=== PATIENT | male | born 1950 | race Caucasian/White ===

== ENCOUNTER 2016-10-29 14:09 | Emergency (ER) | payer BC ==
[~2016-10-29] VITALS: Ht 175.3 cm; Wt 108.0 kg
[~2016-10-29 14:09] MED LIST: ALFU10TA30 PO; ASPI81TA28 PO; DUTA1CAP3; LISI10TA PO; METO50TA7 PO; OMEG10007 PO; PRLSR20 PO; TRAM-10 PO; ZCR80 PO; eloquis
[2016-10-29 14:12] VITALS: TEMP 36.8; Ht 175.3 cm; Wt 108.0 kg
--- NOTE | 2016-10-29 14:38 | EMERGENCY ROOM VISIT NOTE ---
History First contact with patient: 14:21 Chief Complaint: OTHER COMPLAINT Stated Complaint: HOT FLASH History of Present Illness The patient is a 66 year old male who presents to the Emergency Room via private vehicle accompanied by with complaints of "hot flash". The patient states that this past Wednesday he was relaxing and noticed a deep burning -like sensation between his scapula that radiated up his back into his neck and face. This was bilateral. He had 5 or 6 of these episodes on Wednesday, each of which lasted between 30-45 minutes. He took his blood pressure during these events and it was elevated at 165 or 100. Once event subsided the blood pressure was repeated and was found to be 138/70. Yesterday, Wednesday, he did not experience any episodes. This morning he states that the episodes returned were not as severe but are more frequent. He went to his family doctor today for further evaluation performed an EKG and sent him here for an abnormal EKG as well as further workup of his symptoms. He denies any chest pain, shortness of breath, fevers, chills, speech troubles, weakness. He also had dizziness which he thought was her go which was also transient. During this episode he became nauseated. He does have a significant heart history with a triple bypass completed 10 years ago. The gallbladder and appendix are surgically absent. Review of Systems A complete 10-point Review of Systems was discussed with the patient, with pertinent positives and negatives listed in the History of Present Illness. All remaining Review of Systems questions can be considered negative unless otherwise specified. Past Medical/Surgical History Cardiovascular heart disease, high blood pressure, blood clots and right lower leg, triple bypass in 2006, cholecystectomy, appendectomy. Family History Heart disease, high blood pressure, cancer. Social History Smoking Status: Former Smoker Current/Historical Medications Scheduled Alfuzosin Hcl (Uroxatral), 10 MG PO HS Apixaban (Eliquis), 5 MG PO BID Aspirin (Aspirin Ec), 325 MG PO DAILY Dutasteride (Dutasteride), DAILY Fish Oil ([place]-3), 1 CAP PO BID Lisinopril (Prinivil), 10 MG PO DAILY Metoprolol Succ (Toprol Xl) (Toprol-Xl), 50 MG PO QAM Omeprazole (Prilosec), 20 MG PO DAILY Simvastatin (Simvastatin), 80 MG PO HS Scheduled PRN Tramadol (Ultram), 50 MG PO Q4H PRN for Pain Allergies Coded Allergies: Penicillins (Verified Allergy, Unknown, MD CASTLE WANTS MEFOXIN 12/20/04, ) Physical Exam Vital Signs Date Time Temp Pulse Resp B/P Pulse Ox O2 Delivery O2 Flow Rate FiO2 10/29/16 20:51 59 20 149/89 97 10/29/16 19:53 59 20 149/89 97 Room Air 10/29/16 18:32 62 20 179/107 98 Room Air 10/29/16 16:12 62 16 171/92 98 Room Air 10/29/16 14:59 69 10/29/16 14:12 36.8 69 20 165/93 97 Room Air Physical Exam VITAL SIGNS - Vital signs and nursing notes were reviewed. Patient is afebrile , hypertensive at 165/93, not tachycardic and is saturating well on room air 97% . GENERAL -66-year-old male appearing his stated age who is in no acute distress. Communicates well with provider and answers questions appropriately. SKIN - Without rashes. Slight erythema of the neck bilaterally radiating to the face. HEAD - NC/AT. No signs of trauma. EYES - PERRL with EOMI bilaterally. Sclera anicteric. Palpebral conjunctiva pink and moist with no injection noted. EARS - No deformities of external structures noted on gross examination bilaterally. No pain elicited with palpation of the tragus bilaterally. External auditory canals without discharge or otorrhea. Tympanic membranes pearly sexton without retraction or bulging. No fluid or purulent material visualized behind the TM. Handle of malleus, umbo, cone of light, pars tensa/ flaccid all easily visualized. No hemotympanum. NOSE - Midline and without cyanosis. No epistaxis or purulent drainage noted. Septum midline without deviation or septal hematoma noted. MOUTH/OROPHARYNX - Without perioral cyanosis. Buccal mucosa pink and moist and without leukoplakia. Tongue midline with equal elevation of palate bilaterally. No tonsillar hypertrophy, erythema, or exudates noted. Good dentition noted. The airway is patent. NECK - Neck with FROM. Supple to palpation. No lymphadenopathy noted. No nuchal rigidity. No meningeal signs. LUNGS - Chest wall symmetric without accessory muscle use, intercostals retractions, or central cyanosis. Normal vesicular breath sounds CTA B/L. No wheezes, rales, or rhonchi appreciated. CARDIAC - RRR with S1/S2. No murmur, rubs, or gallops appreciated. ABDOMEN - Abdominal contour without pulsations or visible masses. BS normoactive all four quadrants. No tenderness, palpable masses, hepatosplenomegaly, or ascites noted. No pulsatile abdominal masses. MUSCULOSKELETAL: there is no reproducible tenderness upon palpation of the entire spine or scapular regions. EXTREMITIES - No clubbing or peripheral cyanosis. No pretibial edema present. +5 /5 strength noted in UE/LE bilaterally. No neurologic deficit upon exam. NEUROLOGIC - Cranial nerves II through XII grossly intact. Sensory intact to light touch throughout. PSYCH - A&Ox3 and cooperates fully with examiner. Pt is very pleasant and interacts well with examiner. Medical Decision & Procedures ER Provider Diagnostic Interpretation: CT ANGIOGRAM OF THE CHEST CLINICAL HISTORY: Atypical chest pain. COMPARISON STUDY: Chest x-ray dated 10/29/16. Chest CT dated 01/26/2011. TECHNIQUE: Following the IV administration of 91 cc of Optiray 320, CT angiogram of the chest was performed from the upper abdomen to the thoracic inlet utilizing the pulmonary embolus protocol. Images are reviewed in the axial, sagittal, and coronal planes. 3-D MIPS images are created and assessed. IV contrast was administered without complication. CT DOSE: 620.22 mGy.cm FINDINGS: Thyroid: Imaged portions of the thyroid gland are normal in size and attenuation. Thoracic aorta: There is mild atherosclerotic calcification of the thoracic aorta, which is normal in caliber and demonstrates standard 3-vessel arch anatomy. No dissection is seen. Pulmonary vasculature: The pulmonary trunk is normal in caliber. There are thin linear filling defects identified in the distal left main pulmonary artery extending into the left lower lobe branches. Scattered thin central linear filling defects are identified within left upper lobe branches. The right main, lobar, and proximal segmental pulmonary branches are clear. Heart: The patient is status post midline sternotomy. The heart is enlarged and without pericardial effusion. The coronary arteries are densely calcified. Lungs and pleural spaces: Evaluation of the lung parenchyma is modestly degraded by expiratory motion artifact. There is no airspace consolidation or pleural effusion. The trachea and central airways are clear. Mediastinum: There is no mediastinal lymphadenopathy. Jaky: Clear. Axillae: There is no axillary lymphadenopathy. Upper abdomen: Cholecystectomy clips are noted. A 3.2 cm cyst is noted in the upper pole of the right kidney. The liver is steatotic. A small hiatal hernia is identified. Skeletal structures: The skeletal structures are osteopenic. Degenerative change is noted throughout the thoracic spine. No lytic or blastic bony lesions are seen. There is a mild and age indeterminant superior endplate compression deformity of T2. IMPRESSION: 1. There are thin linear central filling defects identified within the distal left main pulmonary artery which extend into the left lower lobe branches. Additionally, thin central linear filling defects are identified within subsegmental branches in the left upper lobe. These are consistent with age indeterminant and possibly chronic pulmonary emboli. 2. No right-sided pulmonary emboli are identified. 3. There is no airspace consolidation or pleural effusion. 4. Cardiomegaly. 5. Hiatal hernia. 6. Additional changes as above. Electronically signed by: Joel Britt M.D. 10/29/2016 5:24 PM Dictated Date/Time: 10/29/2016 5:15 PM CHEST ONE VIEW PORTABLE CLINICAL HISTORY: Pain between scapula. Cardiac history. COMPARISON STUDY: Chest radiograph and chest CT January 26, 2011 FINDINGS: There are median sternotomy wires and clips from bypass grafting. No pneumothorax or pleural effusion is present. There is no evidence of pulmonary edema. No consolidation is identified. Mild cardiomegaly is unchanged. The appearance of the chest is unchanged. IMPRESSION: No acute findings. Stable mild cardiomegaly. No change in appearance of the chest. Electronically signed by: Tayo Granados M.D. 10/29/2016 3:36 PM Dictated Date/Time: 10/29/2016 3:[address]AST CT DOSE: 638.56 mGycm HISTORY: Mental status change "hot flashes", episodes of mid back pain radiating to head TECHNIQUE: Multiaxial CT images of the head were performed without the use of intravenous contrast. Comparison: None. Findings: The paranasal sinuses and mastoid air cells are clear. The calvarium and skull base are intact. The ventricles and sulci are within normal limits. There is no mass, hematoma, midline shift, or acute infarct. Impression: No acute intracranial abnormality. Electronically signed by: Vincent Bar M.D. 10/29/2016 3:57 PM Dictated Date/Time: 10/29/2016 3:57 PM Laboratory Results 10/29/16 15:00 Red Blood Count 4.82, Mean Corpuscular Volume 87.1, Mean Corpuscular Hemoglobin 32.6, Mean Corpuscular Hemoglobin Concent 37.4, Mean Platelet Volume 10.2, Neutrophils (%) (Auto) 70.0, Lymphocytes (%) (Auto) 22.8, Monocytes (%) (Auto) 6.0, Eosinophils (%) (Auto) 0.8, Basophils (%) (Auto) 0.1, Neutrophils # (Auto) 5.45, Lymphocytes # (Auto) 1.78, Monocytes # (Auto) 0.47, Eosinophils # (Auto) 0.06, Basophils # (Auto) 0.01 10/29/16 15:00 Test 10/29/16 15:00 10/29/16 15:09 10/29/16 16:15 White Blood Count 7.79 K/uL (4.8-10.8) Red Blood Count 4.82 M/uL (4.7-6.1) Hemoglobin 15.7 g/dL (14.0-18.0) Hematocrit 42.0 % (42-52) Mean Corpuscular Volume 87.1 fL (80-100) Mean Corpuscular Hemoglobin 32.6 pg (25-34) Mean Corpuscular Hemoglobin Concent 37.4 g/dl (32-36) Platelet Count 130 K/uL (130-400) Mean Platelet Volume 10.2 fL (7.4-10.4) Neutrophils (%) (Auto) 70.0 % Lymphocytes (%) (Auto) 22.8 % Monocytes (%) (Auto) 6.0 % Eosinophils (%) (Auto) 0.8 % Basophils (%) (Auto) 0.1 % Neutrophils # (Auto) 5.45 K/uL (1.4-6.5) Lymphocytes # (Auto) 1.78 K/uL (1.2-3.4) Monocytes # (Auto) 0.47 K/uL (0.11-0.59) Eosinophils # (Auto) 0.06 K/uL (0-0.5) Basophils # (Auto) 0.01 K/uL (0-0.2) RDW Standard Deviation 37.3 fL (36.4-46.3) RDW Coefficient of Variation 11.6 % (11.5-14.5) Immature Granulocyte % (Auto) 0.3 % Immature Granulocyte # (Auto) 0.02 K/uL (0.00-0.02) Prothrombin Time 10.6 SECONDS (9.0-12.0) Prothromb Time International Ratio 1.0 (0.9-1.1) Activated Partial Thromboplast Time 24.7 SECONDS (21.0-31.0) Partial Thromboplastin Ratio 1.0 Anion Gap 8.0 mmol/L (3-11) Est Creatinine Clear Calc Drug Dose 88.0 ml/min Estimated GFR () 90.5 Estimated GFR (Non- 78.1 BUN/Creatinine Ratio 20.0 (10-20) Calcium Level 8.8 mg/dl (8.5-10.1) Total Bilirubin 0.7 mg/dl (0.2-1) Aspartate Amino Transf (AST/SGOT) 23 U/L (15-37) Alanine Aminotransferase (ALT/SGPT) 44 U/L (12-78) Alkaline Phosphatase 84 U/L (45-117) Total Protein 7.4 gm/dl (6.4-8.2) Albumin 4.1 gm/dl (3.4-5.0) Globulin 3.3 gm/dl (2.5-4.0) Albumin/Globulin Ratio 1.2 (0.9-2) Lipase 97 U/L (73-393) Thyroid Stimulating Hormone (TSH) 3.920 uIu/ml (0.300-4.500) Bedside Troponin I 0.000 ng/ml (0-0.045) Urine Color YELLOW Urine Appearance CLEAR (CLEAR) Urine pH 5.0 (4.5-7.5) Urine Specific [place] 1.025 (1.000-1.030) Urine Protein NEG (NEG) Urine Glucose (UA) NEG (NEG) Urine Ketones TRACE (NEG) Urine Occult Blood NEG (NEG) Urine Nitrite NEG (NEG) Urine Bilirubin NEG (NEG) Urine Urobilinogen NEG (NEG) Urine Leukocyte Esterase NEG (NEG) Medical Decision Patient was seen and evaluated as above. After obtaining a thorough history and physical examination IV access was obtained and the above workup was initiated. He was referred here by Dr. Padmini Dao's office who believe he is experiencing symptoms of a myocardial infarction to include shortness of breath and EKG changes from previous any history of coronary artery bypass. I do believe this is reasonable. There was concern for myocardial infarction, pulmonary embolism and dissection as the patient was recently placed on Eliquis. CBC reveals no leukocytosis or anemia. PT and INR are stable. Electrolytes unremarkable. BUN slightly elevated at 20. Creatinine stable. Liver unremarkable. The point care troponin 0. TSH normal. Urine is unremarkable Other than trace ketones. Head CT unremarkable. Chest x-ray stable. CTA was ordered and revealed questionable pulmonary emboli as well as T2 compression fracture, with likely an old fracture as there is no pinpoint tenderness over this region. Pulmonary emboli may be acute or chronic this is unknown. Also EKG changes compared to previous. EKG reveals ventricularly paced rhythm 60 bpm with right axis deviation, potential ectopic atrial rhythm, QRS shift with potential change in the in the inferior leads. There is no ST segment elevation or depression at this time and with a negative troponin I do not believe he is experiencing an active myocardial infarction. Based upon these findings I do believe that the patient warrants inpatient admission for further evaluation and management of the potential pulmonary embolism, questionable subtherapeutic Eliquis with DVT and EKG changes. Please refer to further hospital documentation regarding the patient's stay. His vital signs have been stable here in the emergency department. I was then called by the admission team who agreed to see the patient and was then told that they would not be admitting him,and felt that his EKG changes were consistent with that of a pulmonary embolism and notes the patient to continue his Eliquis but should double up on his lisinopril for his high blood pressure. The decision was then made to discharge the patient and the patient did feel comfortable with this. He is to call his family doctor first thing tomorrow morning to schedule follow-up regarding today's visit. Repeat EKG revealed sinus bradycardia no ectopy or ischemic change. 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 In a repeat EKG was then obtained and revealed sinus bradycardia evaluation treatment this patient following differential diagnoses were entertained: ID, PE , dissection, intracranial mass, hemorrhage, GERD, pneumonia, pneumothorax, hemothorax, pericarditis, among others. Impression Primary Impression: Pulmonary embolism Additional Impressions: Non-traumatic compression fracture of T2 thoracic vertebra Acute electrocardiogram changes Departure Information Dispostion Home / Self-Care Condition FAIR Referrals Joaquín Dao M.D. (PCP) Patient Instructions [facility] Additional Instructions You were seen in the emergency department for your symptoms. In regard to the sensation of burning going up your back: - follow up with his PCP within 2-4 weeks time for this. Blood Pressure Elevation: increase daily lisinopril to 20 mg. take 1 whole tablet daily. - Continue on metoprolol succinate 50 mg QAM, asa 81 mg daily continue Eliquis 5 mg BID. No driving more than 1.5 hours without getting up to walk, strenous activities, contact sports. - Encouraged the patient to walk as much as tolerable - If you develop any chest pain, acute shortness of breath, pain with deep breaths, shortness of breath on exertion, or have other concerns with your health call 911, or come to the emergency department. Low Back Pain: - Continue tramadol 100 mg TID as needed for pain. - Follow up with PCP regarding decision to start gabapentin. Please call your family doctor tomorrow to schedule follow-up. Please return to the emergency department with any new/concerning symptoms. Problem Qualifiers
[2016-10-29] MEDS ORDERED: APIX1TAB3 PO (15:14)
[2016-10-29] MEDS ORDERED: ASPI325T39 PO (15:14)
[2016-10-29 15:24] LABS: BASO % 0.1 %; BASO ABS # 0.01 K/uL (0-0.2); COMPLETE YES; EOS % 0.8 %; IG% 0.3 %; LYMPH % 22.8 %; LYMPH ABS # 1.78 K/uL (1.2-3.4); MEAN CELL VOLUME 87.1 fL (80-100); MEAN CORPUSCULAR HEMOGLOBIN 32.6 pg (25-34); MEAN CORPUSCULAR HGB CONC 37.4 g/dl (32-36); MEAN PLATELET VOLUME 10.2 fL (7.4-10.4); PLATELET COUNT 130 K/uL (130-400); RED BLOOD COUNT 4.82 M/uL (4.7-6.1); WHITE BLOOD COUNT 7.79 K/uL (4.8-10.8)
[2016-10-29 15:34] LABS: PROTHROMBIN TIME (PATIENT) 10.6 SECONDS (9.0-12.0)
--- NOTE | 2016-10-29 15:38 | DIAGNOSTIC IMAGING REPORT ---
CHEST ONE VIEW PORTABLE CLINICAL HISTORY: Pain between scapula. Cardiac history. COMPARISON STUDY: Chest radiograph and chest CT January 26, 2011 FINDINGS: There are median sternotomy wires and clips from bypass grafting. No pneumothorax or pleural effusion is present. There is no evidence of pulmonary edema. No consolidation is identified. Mild cardiomegaly is unchanged. The appearance of the chest is unchanged. IMPRESSION: No acute findings. Stable mild cardiomegaly. No change in appearance of the chest. Electronically signed by: Tayo Granados M.D. 10/29/2016 3:36 PM Dictated Date/Time: 10/29/2016 3:36 PM
[2016-10-29 15:42] LABS: CALCIUM 8.8 mg/dl (8.5-10.1); POTASSIUM 3.9 mmol/L (3.5-5.1)
[2016-10-29 15:53] LABS: ALB/GLOB RATIO 1.2 (0.9-2); THYROID STIMULATING HORMONE 3.92 uIu/ml (0.300-4.500)
--- NOTE | 2016-10-29 15:59 | DIAGNOSTIC IMAGING REPORT ---
HEAD CT NONCONTRAST CT DOSE: 638.56 mGycm HISTORY: Mental status change "hot flashes", episodes of mid back pain radiating to head TECHNIQUE: Multiaxial CT images of the head were performed without the use of intravenous contrast. Comparison: None. Findings: The paranasal sinuses and mastoid air cells are clear. The calvarium and skull base are intact. The ventricles and sulci are within normal limits. There is no mass, hematoma, midline shift, or acute infarct. Impression: No acute intracranial abnormality. Electronically signed by: Vincent Bar M.D. 10/29/2016 3:57 PM Dictated Date/Time: 10/29/2016 3:57 PM
[2016-10-29 16:32] LABS: URINE APPEARANCE CLEAR (CLEAR); URINE BILIRUBIN NEG (NEG); URINE COLOR YELLOW; URINE NITRITE NEG (NEG); URINE SPECIFIC GRAVITY 1.025 (1.000-1.030); UROBILINOGEN NEG (NEG); ZZUR CULT IF INDIC CLEAN CATCH NO
[2016-10-29 16:33] LABS: MANUAL MICROSCOPIC REQUIRED? NO; REVIEW REQ? NO
[2016-10-29] MEDS ORDERED: OPTIRAY 320 IV PRN (16:45)
--- NOTE | 2016-10-29 17:26 | DIAGNOSTIC IMAGING REPORT ---
CT ANGIOGRAM OF THE CHEST CLINICAL HISTORY: Atypical chest pain. COMPARISON STUDY: Chest x-ray dated 10/29/16. Chest CT dated 01/26/2011. TECHNIQUE: Following the IV administration of 91 cc of Optiray 320, CT angiogram of the chest was performed from the upper abdomen to the thoracic inlet utilizing the pulmonary embolus protocol. Images are reviewed in the axial, sagittal, and coronal planes. 3-D MIPS images are created and assessed. IV contrast was administered without complication. CT DOSE: 620.22 mGy.cm FINDINGS: Thyroid: Imaged portions of the thyroid gland are normal in size and attenuation. Thoracic aorta: There is mild atherosclerotic calcification of the thoracic aorta, which is normal in caliber and demonstrates standard 3-vessel arch anatomy. No dissection is seen. Pulmonary vasculature: The pulmonary trunk is normal in caliber. There are thin linear filling defects identified in the distal left main pulmonary artery extending into the left lower lobe branches. Scattered thin central linear filling defects are identified within left upper lobe branches. The right main, lobar, and proximal segmental pulmonary branches are clear. Heart: The patient is status post midline sternotomy. The heart is enlarged and without pericardial effusion. The coronary arteries are densely calcified. Lungs and pleural spaces: Evaluation of the lung parenchyma is modestly degraded by expiratory motion artifact. There is no airspace consolidation or pleural effusion. The trachea and central airways are clear. Mediastinum: There is no mediastinal lymphadenopathy. Jaky: Clear. Axillae: There is no axillary lymphadenopathy. Upper abdomen: Cholecystectomy clips are noted. A 3.2 cm cyst is noted in the upper pole of the right kidney. The liver is steatotic. A small hiatal hernia is identified. Skeletal structures: The skeletal structures are osteopenic. Degenerative change is noted throughout the thoracic spine. No lytic or blastic bony lesions are seen. There is a mild and age indeterminant superior endplate compression deformity of T2. IMPRESSION: 1. There are thin linear central filling defects identified within the distal left main pulmonary artery which extend into the left lower lobe branches. Additionally, thin central linear filling defects are identified within subsegmental branches in the left upper lobe. These are consistent with age indeterminant and possibly chronic pulmonary emboli. 2. No right-sided pulmonary emboli are identified. 3. There is no airspace consolidation or pleural effusion. 4. Cardiomegaly. 5. Hiatal hernia. 6. Additional changes as above. Electronically signed by: Joel Britt M.D. 10/29/2016 5:24 PM Dictated Date/Time: 10/29/2016 5:15 PM
--- NOTE | 2016-10-29 18:12 | History and Physical ---
History & Physical Date & Time of Service: Oct 29, 2016 at 18:00 Chief Complaint: Hot Flash Primary Care Physician: Joaquín Dao M.D. History of Present Illness Source: patient This is a 66 yo M with PMHx significant for HTN, CAD with previous NM s/p CABG x 3 in 2006, hyperlipidemia, recently diagnosed DVT on elequis, previous PE, BPH , osteoarthritis, spinal stenosis, herniated lumbar disc, chronic lower back pain who presents after an episode hot flash/radiating warm sensation. Pt reports this warm sensation starts between his shoulder blades, radiates to his whole chest, up his neck and over his face with a warm flushed feeling. It lasts a few seconds and then he developes a cold sweat. Pt notes the first time he felt this was last summer, and that he has infrequently had them on and off over the past 6 months. This sensation is nothing like his previous NM where he had "Classic symptoms with chest pain, radiation down arm and up to neck, and shortness of breath". 3 days ago the pt experienced multiple of these sensations together within a 45 minute time frame. Today at ~0545 he had another one of these feelings while driving in the car on snowy roads. He admits to feeling anxious when these symptoms occur normally. He cannot relate anything specific to why he had the sensation 6-7 times 3 days ago. Pt notes his kiko is admitted here for tylenol overdose and has been thinking about this a lot lately which has caused him to be more anxious. In the ED poc troponin is negative. CXR is negative. CTPE shows age indeterminate PE. EKG shows new S1, T3, and Q3 indicative of core pulmonale in relation to previous PE, without signs of acute ischemia. Other labs are essentially unremarkable. Social History Smoking Status: Former Smoker Immunizations History of Influenza Vaccine: No History of Tetanus Vaccine?: Yes Tetanus Immunization Date: Jan 09, 2004 History of Pneumococcal: No History of Hepatitis B Vaccine: No Multi-Drug Resistant Organisms History of MDRO: No Allergies Coded Allergies: Penicillins (Verified Allergy, Unknown, MD CASTLE WANTS MEFOXIN 12/20/04, ) Home Medications Scheduled Alfuzosin Hcl (Uroxatral), 10 MG PO HS Apixaban (Eliquis), 5 MG PO BID Aspirin (Aspirin Ec), 325 MG PO DAILY Dutasteride (Dutasteride), DAILY Fish Oil ([place]-3), 1 CAP PO BID Lisinopril (Prinivil), 10 MG PO DAILY Metoprolol Succ (Toprol Xl) (Toprol-Xl), 50 MG PO QAM Omeprazole (Prilosec), 20 MG PO DAILY Simvastatin (Simvastatin), 80 MG PO HS Scheduled PRN Tramadol (Ultram), 50 MG PO Q4H PRN for Pain Physical Exam Vital Signs Date Time Temp Pulse Resp B/P Pulse Ox O2 Delivery O2 Flow Rate FiO2 10/29/16 16:12 62 16 171/92 98 Room Air 10/29/16 14:59 69 10/29/16 14:12 36.8 69 20 165/93 97 Room Air Diagnostics Laboratory Results Results Past 24 Hours Test 10/29/16 15:00 10/29/16 15:09 10/29/16 16:15 Range/Units White Blood Count 7.79 4.8-10.8 K/uL Red Blood Count 4.82 4.7-6.1 M/uL Hemoglobin 15.7 14.0-18.0 g/dL Hematocrit 42.0 42-52 % Mean Corpuscular Volume 87.1 80-100 fL Mean Corpuscular Hemoglobin 32.6 25-34 pg Mean Corpuscular Hemoglobin Concent 37.4 32-36 g/dl Platelet Count 130 130-400 K/uL Mean Platelet Volume 10.2 7.4-10.4 fL Neutrophils (%) (Auto) 70.0 % Lymphocytes (%) (Auto) 22.8 % Monocytes (%) (Auto) 6.0 % Eosinophils (%) (Auto) 0.8 % Basophils (%) (Auto) 0.1 % Neutrophils # (Auto) 5.45 1.4-6.5 K/uL Lymphocytes # (Auto) 1.78 1.2-3.4 K/uL Monocytes # (Auto) 0.47 0.11-0.59 K/uL Eosinophils # (Auto) 0.06 0-0.5 K/uL Basophils # (Auto) 0.01 0-0.2 K/uL RDW Standard Deviation 37.3 36.4-46.3 fL RDW Coefficient of Variation 11.6 11.5-14.5 % Immature Granulocyte % (Auto) 0.3 % Immature Granulocyte # (Auto) 0.02 0.00-0.02 K/uL Prothrombin Time 10.6 9.0-12.0 SECONDS Prothromb Time International Ratio 1.0 0.9-1.1 Activated Partial Thromboplast Time 24.7 21.0-31.0 SECONDS Partial Thromboplastin Ratio 1.0 Sodium Level 140 136-145 mmol/L Potassium Level 3.9 3.5-5.1 mmol/L Chloride Level 105 98-107 mmol/L Carbon Dioxide Level 27 21-32 mmol/L Anion Gap 8.0 3-11 mmol/L Blood Urea Nitrogen 20 7-18 mg/dl Creatinine 1.00 0.60-1.40 mg/dl Est Creatinine Clear Calc Drug Dose 88.0 ml/min Estimated GFR () 90.5 Estimated GFR (Non- 78.1 BUN/Creatinine Ratio 20.0 10-20 Random Glucose 107 70-99 mg/dl Calcium Level 8.8 8.5-10.1 mg/dl Total Bilirubin 0.7 0.2-1 mg/dl Aspartate Amino Transf (AST/SGOT) 23 15-37 U/L Alanine Aminotransferase (ALT/SGPT) 44 12-78 U/L Alkaline Phosphatase 84 45-117 U/L Total Protein 7.4 6.4-8.2 gm/dl Albumin 4.1 3.4-5.0 gm/dl Globulin 3.3 2.5-4.0 gm/dl Albumin/Globulin Ratio 1.2 0.9-2 Lipase 97 73-393 U/L Thyroid Stimulating Hormone (TSH) 3.920 0.300-4.500 uIu/ml Bedside Troponin I 0.000 0-0.045 ng/ml Urine Color YELLOW Urine Appearance CLEAR CLEAR Urine pH 5.0 4.5-7.5 Urine Specific [place] 1.025 1.000-1.030 Urine Protein NEG NEG Urine Glucose (UA) NEG NEG Urine Ketones TRACE NEG Urine Occult Blood NEG NEG Urine Nitrite NEG NEG Urine Bilirubin NEG NEG Urine Urobilinogen NEG NEG Urine Leukocyte Esterase NEG NEG Diagnostic Radiology CT ANGIOGRAM OF THE CHEST CLINICAL HISTORY: Atypical chest pain. COMPARISON STUDY: Chest x-ray dated 10/29/16. Chest CT dated 01/26/2011. TECHNIQUE: Following the IV administration of 91 cc of Optiray 320, CT angiogram of the chest was performed from the upper abdomen to the thoracic inlet utilizing the pulmonary embolus protocol. Images are reviewed in the axial, sagittal, and coronal planes. 3-D MIPS images are created and assessed. IV contrast was administered without complication. CT DOSE: 620.22 mGy.cm FINDINGS: Thyroid: Imaged portions of the thyroid gland are normal in size and attenuation. Thoracic aorta: There is mild atherosclerotic calcification of the thoracic aorta, which is normal in caliber and demonstrates standard 3-vessel arch anatomy. No dissection is seen. Pulmonary vasculature: The pulmonary trunk is normal in caliber. There are thin linear filling defects identified in the distal left main pulmonary artery extending into the left lower lobe branches. Scattered thin central linear filling defects are identified within left upper lobe branches. The right main, lobar, and proximal segmental pulmonary branches are clear. Heart: The patient is status post midline sternotomy. The heart is enlarged and without pericardial effusion. The coronary arteries are densely calcified. Lungs and pleural spaces: Evaluation of the lung parenchyma is modestly degraded by expiratory motion artifact. There is no airspace consolidation or pleural effusion. The trachea and central airways are clear. Mediastinum: There is no mediastinal lymphadenopathy. Jaky: Clear. Axillae: There is no axillary lymphadenopathy. Upper abdomen: Cholecystectomy clips are noted. A 3.2 cm cyst is noted in the upper pole of the right kidney. The liver is steatotic. A small hiatal hernia is identified. Skeletal structures: The skeletal structures are osteopenic. Degenerative change is noted throughout the thoracic spine. No lytic or blastic bony lesions are seen. There is a mild and age indeterminant superior endplate compression deformity of T2. IMPRESSION: 1. There are thin linear central filling defects identified within the distal left main pulmonary artery which extend into the left lower lobe branches. Additionally, thin central linear filling defects are identified within subsegmental branches in the left upper lobe. These are consistent with age indeterminant and possibly chronic pulmonary emboli. 2. No right-sided pulmonary emboli are identified. 3. There is no airspace consolidation or pleural effusion. 4. Cardiomegaly. 5. Hiatal hernia. 6. Additional changes as above. Electronically signed by: Joel Britt M.D. 10/29/2016 5:24 PM Dictated Date/Time: 10/29/2016 5:15 PM The status of this report is Signed. CHEST ONE VIEW PORTABLE CLINICAL HISTORY: Pain between scapula. Cardiac history. COMPARISON STUDY: Chest radiograph and chest CT January 26, 2011 FINDINGS: There are median sternotomy wires and clips from bypass grafting. No pneumothorax or pleural effusion is present. There is no evidence of pulmonary edema. No consolidation is identified. Mild cardiomegaly is unchanged. The appearance of the chest is unchanged. IMPRESSION: No acute findings. Stable mild cardiomegaly. No change in appearance of the chest. Electronically signed by: Tayo Granados M.D. 10/29/2016 3:36 PM Dictated Date/Time: 10/29/2016 3:36 PM The status of this report is Signed. HEAD CT NONCONTRAST CT DOSE: 638.56 mGycm HISTORY: Mental status change "hot flashes", episodes of mid back pain radiating to head TECHNIQUE: Multiaxial CT images of the head were performed without the use of intravenous contrast. Comparison: None. Findings: The paranasal sinuses and mastoid air cells are clear. The calvarium and skull base are intact. The ventricles and sulci are within normal limits. There is no mass, hematoma, midline shift, or acute infarct. Impression: No acute intracranial abnormality. Electronically signed by: Vincent Bar M.D. 10/29/2016 3:57 PM Dictated Date/Time: 10/29/2016 3:57 PM The status of this report is Signed. EKG Vent. rate 60 BPM HI interval 182 ms QRS duration 96 ms QT/QTc 422/422 ms P-R-T axes 141 197 95 Impression Assessment and Plan 66 yo M with PMHx significant for HTN, CAD with previous NM s/p CABG x 3 in 2006 , hyperlipidemia, recently diagnosed DVT on elequis, previous PE, BPH, osteoarthritis, spinal stenosis, herniated lumbar disc, chronic lower back pain who presents after an episode hot flash/radiating warm sensation Hot flash/warm sensation, Chest pain r/o - Pain today appears to be related to anxiety vs cardiac in nature - 1st set of troponins is negative. CAD s/p CABG x 3 Previous NM HTN - Blood pressure elevated due to acute stress and anxiety - Will increase daily lisinopril to 20 mg - EKG findings are consistent with old PE, see below - Continue on metoprolol succinate 50 mg QAM, asa 81 mg daily DVT Age indeterminate PE - CT angiogram conducted showing S1 T3 Q3 which would indicate cor pulmonale consistent with previous PE although unknown when this occured. - Pt is already on anticoagulation with Eliquis 5 mg BID, so will continue - Encouraged the patient to walk as much as tolerable- pt has been being mostly sedentary since diagnosed with DVT in early August Osteoarthritis Chronic Low back pain - Continue tramadol 100 mg TID as needed for pain. Follow up with PCP regarding decision to start gabapentin.
--- NOTE | 2016-10-29 19:16 | Medical Consult ---
Consultation Date of Consultation: Oct 29, 2016. Attending Physician: Dr. Gan Reason for Consultation: Chest Pain r/o History of Present Illness This is a 66 yo M with PMHx significant for HTN, CAD with previous [place] s/p CABG x 3 in 2006, hyperlipidemia, recently diagnosed DVT on elequis, previous PE, BPH , osteoarthritis, spinal stenosis, herniated lumbar disc, chronic lower back pain who presents after an episode hot flash/radiating warm sensation. Pt reports this warm sensation starts between his shoulder blades, radiates to his whole chest, up his neck and over his face with a warm flushed feeling. It lasts a few seconds and then he developes a cold sweat. Pt notes the first time he felt this was last summer, and that he has infrequently had them on and off over the past 6 months. This sensation is nothing like his previous OH where he had "Classic symptoms with chest pain, radiation down arm and up to neck, and shortness of breath". 3 days ago the pt experienced multiple of these sensations together within a 45 minute time frame. Today at ~0545 he had another one of these feelings while driving in the car on snowy roads. He admits to feeling anxious when these symptoms occur normally. He cannot relate anything specific to why he had the sensation 6-7 times 3 days ago. Pt notes his niece is admitted here for tylenol overdose and has been thinking about this a lot lately which has caused him to be more anxious. Pt denies chest pain , flutter, palpitations, sob, abd pain, nausea, vomiting, diarrhea, constipation , lightheadedness or dizziness. In the ED poc troponin is negative. CXR is negative. CTPE shows age indeterminate PE. EKG shows new S1, T3, and Q3 indicative of core pulmonale in relation to previous PE, without signs of acute ischemia. Other labs are essentially unremarkable. Past Medical/Surgical History Medical Problems: (1) Acute electrocardiogram changes Status: Acute (2) Non-traumatic compression fracture of T2 thoracic vertebra Status: Acute (3) Pulmonary embolism Status: Acute Social History Smoking Status: Former Smoker Smokeless Tobacco Use: No Alcohol Use: none Drug Use: none Marital Status: Housing Status: lives with family Occupation Status: retired Allergies Coded Allergies: Penicillins (Verified Allergy, Unknown, MD CASTLE WANTS MEFOXIN 12/20/04, ) Home Medications Alfuzosin hcl 10 mg PO HS Eliquis 5 mg BID ASA 81 mg Dutasteride 0.5 mg daily Lisinopril 10 mg daily Toprolol XL 25 mg every morning Omeprazole 20 mg daily simvastatin 80 mg QHS tramadol 100 mg TID Current Inpatient Medications Current Inpatient Medications Medications (Trade) Dose Ordered Sig/Zaid Route Start Time Stop Time Status Last Admin Dose Admin Ioversol (Optiray 320) 125 ml UD PRN IV 10/29/16 16:45 11/02/16 16:44 Review of Systems 10 point ROS reviewed and negative unless otherwise stated in HPI. Physical Exam Date Time Temp Pulse Resp B/P Pulse Ox O2 Delivery O2 Flow Rate FiO2 10/29/16 18:32 62 20 179/107 98 Room Air 10/29/16 16:12 62 16 171/92 98 Room Air 10/29/16 14:59 69 10/29/16 14:12 36.8 69 20 165/93 97 Room Air General Appearance: WD/WN, no apparent distress Head: normocephalic, atraumatic Eyes: PERRL, EOMI ENT: hearing grossly normal, pharynx normal Neck: supple, no JVD Respiratory/Chest: chest non-tender, lungs clear, normal breath sounds, no respiratory distress, no accessory muscle use Cardiovascular: regular rate, rhythm, no murmur, normal peripheral pulses Abdomen/GI: normal bowel sounds, non tender, soft Back: normal inspection, no muscle spasm, + pertinent finding (No point tenderness of the spine. ) Extremities/Musculoskelatal: no calf tenderness, no pedal edema Neurologic/Psych: no motor/sensory deficits, alert, normal mood/affect, oriented x 3 Skin: normal color, warm/dry Laboratory Results Last 24 Hours Test 10/29/16 15:00 10/29/16 15:09 10/29/16 16:15 White Blood Count 7.79 K/uL Red Blood Count 4.82 M/uL Hemoglobin 15.7 g/dL Hematocrit 42.0 % Mean Corpuscular Volume 87.1 fL Mean Corpuscular Hemoglobin 32.6 pg Mean Corpuscular Hemoglobin Concent 37.4 g/dl Platelet Count 130 K/uL Mean Platelet Volume 10.2 fL Neutrophils (%) (Auto) 70.0 % Lymphocytes (%) (Auto) 22.8 % Monocytes (%) (Auto) 6.0 % Eosinophils (%) (Auto) 0.8 % Basophils (%) (Auto) 0.1 % Neutrophils # (Auto) 5.45 K/uL Lymphocytes # (Auto) 1.78 K/uL Monocytes # (Auto) 0.47 K/uL Eosinophils # (Auto) 0.06 K/uL Basophils # (Auto) 0.01 K/uL RDW Standard Deviation 37.3 fL RDW Coefficient of Variation 11.6 % Immature Granulocyte % (Auto) 0.3 % Immature Granulocyte # (Auto) 0.02 K/uL Prothrombin Time 10.6 SECONDS Prothromb Time International Ratio 1.0 Activated Partial Thromboplast Time 24.7 SECONDS Partial Thromboplastin Ratio 1.0 Sodium Level 140 mmol/L Potassium Level 3.9 mmol/L Chloride Level 105 mmol/L Carbon Dioxide Level 27 mmol/L Anion Gap 8.0 mmol/L Blood Urea Nitrogen 20 mg/dl Creatinine 1.00 mg/dl Est Creatinine Clear Calc Drug Dose 88.0 ml/min Estimated GFR () 90.5 Estimated GFR (Non- 78.1 BUN/Creatinine Ratio 20.0 Random Glucose 107 mg/dl Calcium Level 8.8 mg/dl Total Bilirubin 0.7 mg/dl Aspartate Amino Transf (AST/SGOT) 23 U/L Alanine Aminotransferase (ALT/SGPT) 44 U/L Alkaline Phosphatase 84 U/L Total Protein 7.4 gm/dl Albumin 4.1 gm/dl Globulin 3.3 gm/dl Albumin/Globulin Ratio 1.2 Lipase 97 U/L Thyroid Stimulating Hormone (TSH) 3.920 uIu/ml Bedside Troponin I 0.000 ng/ml Urine Color YELLOW Urine Appearance CLEAR Urine pH 5.0 Urine Specific [place] 1.025 Urine Protein NEG Urine Glucose (UA) NEG Urine Ketones TRACE Urine Occult Blood NEG Urine Nitrite NEG Urine Bilirubin NEG Urine Urobilinogen NEG Urine Leukocyte Esterase NEG Assessment & Plan 66 yo M with PMHx significant for HTN, CAD with previous [place] s/p CABG x 3 in 2006 , hyperlipidemia, recently diagnosed DVT on elequis, previous PE, BPH, osteoarthritis, spinal stenosis, herniated lumbar disc, chronic lower back pain who presents after an episode hot flash/radiating warm sensation Hot flash/warm sensation, Chest pain r/o - Pain today appears to be related to anxiety vs cardiac in nature as pt notes episodes occur around periods of high stress. - Troponin is negative. - All other labs are essentially negative. - No findings on PE to suggest cardiac involvement - Recommend that the patient follow up with his PCP within 2-4 weeks time for this. CAD s/p CABG x 3 Previous [place] HTN - Blood pressure elevated due to acute stress and anxiety - Will increase daily lisinopril to 20 mg. Pt has been cutting tablets in half to take 10 mg daily so will have the patient take 1 whole tablet daily. - EKG findings are consistent with old PE, see below - Continue on metoprolol succinate 50 mg QAM, asa 81 mg daily DVT Age indeterminate PE - CT angiogram conducted showing S1 T3 Q3 which would indicate cor pulmonale consistent with previous PE although unknown when this occurred. No CTPE was conducted when the initial DVT was found in early August. Discussion was held with the patient regarding anticoagulation. He is adamant that he does not want to take coumadin so will continue Eliquis 5 mg BID. - Discussion was held regarding not driving more than 1.5 hours without getting up to walk, strenous activities, contact sports. - Encouraged the patient to walk as much as tolerable- pt has been being mostly sedentary since diagnosed with DVT in early August - If pt develops chest pain, acute shortness of breath, pain with deep breaths, shortness of breath on exertion, or had other concerns with his health was instructed to call 911, or come to the emergency department. Osteoarthritis Chronic Low back pain - Continue tramadol 100 mg TID as needed for pain. - Follow up with PCP regarding decision to start gabapentin. Thank you for the consult regarding Mr. Popeye Mijares. Reviewed: Pt Seen/Exam by Me, RN Notes, HO Notes, Prior Records, Labs, RAD History I agree with PA medical consult A 66 yo M with PMHx significant for HTN, CAD with previous [place] s/p CABG x 3 in 2006, hyperlipidemia, recently diagnosed DVT on elequis, previous PE, BPH, osteoarthritis, spinal stenosis, herniated lumbar disc, chronic lower back pain who presents after an episode hot flash/radiating warm sensation Constitutional: denies: chills EENTM: denies: tearing Respiratory: negative: cough Cardiovascular: denies chest pain Genitourinary: negative discharge Musculoskeletal: negative: gout Neurological/Psych: negative: anxiety Hematologic/Lymphatic: negative: anemia General Appearance: WD/WN, no apparent distress Eye Exam: bilateral eye normal inspection Ears, Nose, Throat: hearing grossly normal Neck: non-tender Respiratory: chest non-tender, normal breath sounds Cardiovascular: normal peripheral pulses, no edema Gastrointestinal: non tender Extremities: non-tender Neurologic/Psychiatric: normal mood/affect Assessment/Plan A 66 yo male comes with Hot flash/warm sensation, Chest pain r/o pain is likely related to anxiety vs cardiac in nature as pt notes episodes occur around periods of high stress. Troponin is negative. No findings on exam to suggest cardiac involvement Recommend that the patient follow up with his PCP within 2-4 weeks time for this. CAD s/p CABG x 3 Previous [place] HTN Blood pressure elevated due to acute stress and anxiety increase daily lisinopril to 20 mg. Pt has been cutting tablets in half to take 10 mg daily so will have the patient take 1 whole tablet daily. EKG findings are consistent with old PE, see below Continue on metoprolol succinate 50 mg QAM, asa 81 mg daily Hx DVT with Age indeterminate PE EKG conducted showing S1 T3 Q3 which would indicate cor pulmonale consistent with previous PE although unknown when this occurred. No CTPE was conducted when the initial DVT was found in early August. Discussion was held with the patient regarding anticoagulation. He is adamant that he does not want to take coumadin, so will continue Eliquis 5 mg BID. Discussion was held regarding not flying for 3 months, not driving more than 1.5 hours without getting up to walk, strenuous activities, contact sports. If pt develops chest pain, acute shortness of breath, pain with deep breaths, shortness of breath on exertion, or had other concerns with his health was instructed to call 911, or come to the emergency department. Osteoarthritis Chronic Low back pain Continue tramadol 100 mg TID as needed for pain. Follow up with PCP regarding decision to start gabapentin. Thank you for the consult regarding Mr. Nye Dyllan. time spent 30 min case discussed with ALFONZO Montenegro
[2016-10-29 20:51] VITALS: BP 149/89; PULSE 59; O2SAT 97
== END 2016-10-29 20:53 | disposition home or self-care (01) ==
LOC: C.EDB 14:10
DX: I26.99 Other pulmonary embolism without acute cor pulmonale (principal); M48.54XA Collapsed vertebra, not elsewhere classified, thoracic region, initial encounter for fracture; R94.31 Abnormal electrocardiogram [ECG] [EKG]; Z90.49 Acquired absence of other specified parts of digestive tract; Z87.891 Personal history of nicotine dependence; I25.10 Atherosclerotic heart disease of native coronary artery without angina pectoris; Z79.82 Long term (current) use of aspirin; I25.2 Old myocardial infarction; E78.5 Hyperlipidemia, unspecified; M19.90 Unspecified osteoarthritis, unspecified site; G89.29 Other chronic pain

== ENCOUNTER → 2016-12-29 | Outpatient (CLI) | payer BC ==
[~2016-12-29] MED LIST changes: +ALFU10TA2 PO; -ALFU10TA30 PO; +APIX1TAB3 PO; +ASPI325T39 PO; -ASPI81TA28 PO; -eloquis
[2016-12-29 12:43] LABS: HEMATOCRIT 41.7 % (42-52); MEAN CELL VOLUME 89.7 fL (80-100); MEAN CORPUSCULAR HEMOGLOBIN 32.3 pg (25-34); MEAN PLATELET VOLUME 10.7 fL (7.4-10.4); PLATELET COUNT 144 K/uL (130-400); RED BLOOD COUNT 4.65 M/uL (4.7-6.1); WHITE BLOOD COUNT 6.09 K/uL (4.8-10.8)
[2016-12-29 12:55] LABS: ALT/SGPT 36 U/L (12-78); BLOOD UREA NITROGEN 24 mg/dl (7-18); BUN/CREATININE RATIO 25.2 (10-20); CALCIUM 8.8 mg/dl (8.5-10.1); CARBON DIOXIDE 26 mmol/L (21-32); CHLORIDE 106 mmol/L (98-107); CHOLESTEROL 134 mg/dl (0-200); CREATININE 0.95 mg/dl (0.60-1.40); GLUCOSE 103 mg/dl (70-99); POTASSIUM 3.9 mmol/L (3.5-5.1); SODIUM 140 mmol/L (136-145); TRIGLYCERIDES 121 mg/dl (0-150); VERY LOW DENSITY LIPOPROT CALC 24 mg/dl
[2016-12-29 12:59] LABS: ALB/GLOB RATIO 1.2 (0.9-2); ALKALINE PHOSPHATASE 85 U/L (45-117); AST/SGOT 23 U/L (15-37); CHOLESTEROL/HDL RATIO 4.2; HDL CHOLESTEROL 32 mg/dl; LDL CHOLESTEROL CALCULATED 78 mg/dl
== END | disposition home or self-care (01) ==
LOC: C.LABBFT 08:47
PROVIDERS: ATTEND Physician Assistant Medical
DX: Z12.5 Encounter for screening for malignant neoplasm of prostate (principal); I25.10 Atherosclerotic heart disease of native coronary artery without angina pectoris; E78.5 Hyperlipidemia, unspecified

== ENCOUNTER → 2017-05-07 | Outpatient (CLI) | payer BC ==
[~2017-05-07] MED LIST changes: -ALFU10TA2 PO; +ALFU10TA30 PO
--- NOTE | 2017-05-18 11:07 | CODING QUERY MEDICAL NECESSITY ---
CQSUPPORTING DIAGNOSIS NEEDED A supporting diagnosis is required for the test/procedure performed on this patient in order for us to be reimbursed by the patient's insurance. Please provide a supporting diagnosis for the following test/procedure listed below next to the test name along with your signature. *If there is no additional diagnosis for this patient that would support the following test/procedure please document that below next to the test/procedure. Test(s)/Procedure(s) that require a supporting diagnosis: DOS 05/07/17 [facility] Provider Signature: Date: Thank you Ana Lilia Small [employer] Once completed, please kindly fax back to [phone] For questions please call [phone]
== END | disposition home or self-care (01) ==
LOC: C.LABBFT 08:42
PROVIDERS: ATTEND Internal Medicine
DX: R97.20 Elevated prostate specific antigen [PSA] (principal); I26.99 Other pulmonary embolism without acute cor pulmonale

== ENCOUNTER → 2017-05-20 | Outpatient (CLI) | payer BC ==
--- NOTE | 2017-05-20 12:08 | DIAGNOSTIC IMAGING REPORT ---
CAROTID ARTERY ULTRASOUND CLINICAL HISTORY: Near syncope. Visual changes. COMPARISON STUDY: None. TECHNIQUE: Real-time, grayscale, and color Doppler sonography of the carotid and vertebral arteries was performed. Images were viewed in the transverse and longitudinal planes. FINDINGS: There is mild atherosclerotic plaque. Velocity measurements are listed below. COMMON CAROTID PEAK SYSTOLIC VELOCITY (CM/S): RIGHT 90 LEFT 79 ICA PEAK SYSTOLIC VELOCITY (CM/S): RIGHT 78 LEFT 68 Systolic ratios between the internal to common carotid arteries are normal. Antegrade flow is seen in the vertebral arteries. The external carotid arteries are patent. Blood pressure in the right arm measured 154/79. Blood pressure in the left arm measured 170/85. IMPRESSION: 1. No evidence of a hemodynamically significant stenosis. 2. Elevated blood pressure, as above. Electronically signed by: Tayo Granados M.D. 05/20/2017 12:07 PM Dictated Date/Time: 05/20/2017 12:06 PM
== END | disposition home or self-care (01) ==
LOC: C.ULTR 11:25
PROVIDERS: ATTEND Internal Medicine
DX: R55 Syncope and collapse (principal); H53.9 Unspecified visual disturbance; R03.0 Elevated blood-pressure reading, without diagnosis of hypertension

== ENCOUNTER → 2017-10-08 | Outpatient (CLI) | payer BC ==
[~2017-10-08] MED LIST changes: +ALFU10TA2 PO; -ALFU10TA30 PO
[2017-10-08 12:28] LABS: HEMATOCRIT 44.2 % (42-52); HEMOGLOBIN 15.5 g/dL (14.0-18.0); MEAN CELL VOLUME 92.3 fL (80-100); MEAN CORPUSCULAR HEMOGLOBIN 32.4 pg (25-34); MEAN CORPUSCULAR HGB CONC 35.1 g/dl (32-36); MEAN PLATELET VOLUME 10.7 fL (7.4-10.4); PLATELET COUNT 146 K/uL (130-400); RED CELL DISTRIBUTION WIDTH CV 11.8 % (11.5-14.5)
[2017-10-08 14:18] LABS: ALBUMIN 3.7 gm/dl (3.4-5.0); ALT/SGPT 40 U/L (12-78); AST/SGOT 23 U/L (15-37); BLOOD UREA NITROGEN 21 mg/dl (7-18); CALCIUM 8.7 mg/dl (8.5-10.1); CARBON DIOXIDE 26 mmol/L (21-32); CREATININE 1.04 mg/dl (0.60-1.40); GLUCOSE 104 mg/dl (70-99); POTASSIUM 4.1 mmol/L (3.5-5.1); SODIUM 137 mmol/L (136-145)
[2017-10-08 14:21] LABS: ALKALINE PHOSPHATASE 89 U/L (45-117); CHOLESTEROL 159 mg/dl (0-200); LDL CHOLESTEROL CALCULATED 95 mg/dl; TOTAL PROTEIN 7.3 gm/dl (6.4-8.2)
== END | disposition home or self-care (01) ==
LOC: C.LABBFT 08:27
PROVIDERS: ATTEND Internal Medicine
DX: E78.00 Pure hypercholesterolemia, unspecified (principal); I25.10 Atherosclerotic heart disease of native coronary artery without angina pectoris

== ENCOUNTER → 2018-02-01 | Day surgery (SDC) | payer BC ==
[2018-01-19 12:29] VITALS: Ht 175.3 cm; Wt 109.1 kg
[~2018-02-01] VITALS: Ht 175.3 cm; Wt 109.1 kg
[~2018-02-01] MED LIST changes: -APIX1TAB3 PO; +ATROPINE SULFATE 0.1 MG/ML 5ML SYR IV PRN; +EpHEDrine SULFATE INJ 50 MG/ML AMP IV PRN; +FENTANYL CITRATE INJ 50 MCG/1 ML 2 ML VIAL ONE; +LIDOCAINE HCL 2% 2 ML VIAL (20MG/ML) ONE; -LISI10TA PO; +LSN20 PO; -METO50TA7 PO; +METO50TA8 PO; +MIDAZOLAM HCL 1 MG/ML 2ML VIAL ONE; -OMEG10007 PO; +OMEG5CAP PO; +ONDANSETRON INJ 2 MG/ML 2 ML VIAL ONE; +PROPOFOL IV EMULSION 10 MG/ML 20 ML VIAL ONE; +SODIUM CHLORIDE 0.9% 500ML 500 ML IV ONE
--- NOTE | 2018-02-01 09:45 | Endo History and Physical ---
History & Physical Date of Service: February 01, 2018. Chief Complaint: Screening Referring Physician: Dr. Dao History of Present Illness 68 yo CM who presents for screening colonoscopy. Past Medical History Reflux, High Cholesterol, CABG, Heart Disease, Hypertension Past Surgical History Hx Cardiac Surgery: Yes (HEART CATH-MARIA ESTHER, CABG X 3 97 MARIA ESTHER) Hx Internal Defibrillator: No Hx Pacemaker: No Hx Abdominal Surgery: Yes (APPY, LAP ERNIE) Hx of Implantable Prosthesis: No Hx Post-Op Nausea and Vomiting: No Hx Cancer Surgery: No Hx Thoracic Surgery: No Hx Orthopedic: Yes (BILT KNEE ARTHROSCOPY) Hx Urinary Tract Surgery: No Family History Colon CA Social History Smoking Status: Former Smoker Hx Substance Use: No Hx Alcohol Use: No Allergies Coded Allergies: Penicillins (Verified Allergy, Unknown, MD TIN PATRICK MEFOXIN 12/20/04, ) Current Medications Reported Home Medications Medications Dose Route/Sig Max Daily Dose Days Date Category Lisinopril 20 Mg Tab 1 Tab PO DAILY 01/19/18 Reported Fish Oil 1200 mg ([place]-3 Fatty Acids) 1 Cap Cap 2 Cap PO DAILY 01/19/18 Reported Aspirin Ec (Aspirin) 325 Mg Tab 325 Mg PO DAILY 10/29/16 Reported Dutasteride 0.5 Mg Cap DAILY 09/09/16 Reported Ultram (Tramadol HCl) 50 Mg Tab 100 Mg PO TID 11/28/14 Reported Uroxatral (Alfuzosin HCl) 10 Mg Tab 10 Mg PO HS 11/28/14 Reported Toprol-Xl (Metoprolol Succinate) 50 Mg Tabcr 50 Mg PO QAM 11/28/14 Reported Simvastatin 80 Mg Tab 80 Mg PO HS 11/28/14 Reported Prilosec (Omeprazole) 20 Mg Capcr 20 Mg PO DAILY 04/06/08 Reported Vital Signs Weight (Kilograms): 109.09 Height (Feet): 5 Height (Inches): 9 Physical Exam General Appearance: WD/WN, no apparent distress Respiratory/Chest: Auscultation: breath sounds normal Cardiovascular: Heart Auscultation: RRR Abdomen: Bowel Sounds: normal Inspection & Palpation: soft, non-distended, no tenderness, guarding & rebound Assessment and Plan Assessment: 68 yo CM who presents for screening colonoscopy. Plan: Proceed with colonoscopy.
--- NOTE | 2018-02-01 11:11 | Discharge Instructions ---
Endoscopy Patient Instructions Date / Procedure(s) Performed February 01, 2018. Colonoscopy Allergy Information Coded Allergies: Penicillins (Verified Allergy, Unknown, MD TIN PATRICK MEFOXIN 12/20/04, ) Discharge Date / Findings February 01, 2018. Colon polyps Internal hemorrhoids Medication Instructions Stopped Medication(s): ASPIRIN AND FISH OIL OK to resume all medications today as prescribed Reported Home Medications Medications Dose Route/Sig Max Daily Dose Days Date Category Lisinopril 20 Mg Tab 1 Tab PO DAILY 01/19/18 Reported Fish Oil 1200 mg ([place]-3 Fatty Acids) 1 Cap Cap 2 Cap PO DAILY 01/19/18 Reported Aspirin Ec (Aspirin) 325 Mg Tab 325 Mg PO DAILY 10/29/16 Reported Dutasteride 0.5 Mg Cap DAILY 09/09/16 Reported Ultram (Tramadol HCl) 50 Mg Tab 100 Mg PO TID 11/28/14 Reported Uroxatral (Alfuzosin HCl) 10 Mg Tab 10 Mg PO HS 11/28/14 Reported Toprol-Xl (Metoprolol Succinate) 50 Mg Tabcr 50 Mg PO QAM 11/28/14 Reported Simvastatin 80 Mg Tab 80 Mg PO HS 11/28/14 Reported Prilosec (Omeprazole) 20 Mg Capcr 20 Mg PO DAILY 04/06/08 Reported Provider Instructions Activity Restrictions - No exercising or heavy lifting for 24 hours. - Do not drink alcohol the day of the procedure. - Do not drive a car or operate machinery until the day after the procedure. - Do not make any important decisions or sign important papers in 24 hours after the procedure. Following Day: - Return to full activity which may include returning to work/school. Diet Start your diet with liquids and light foods (jello, soup, juice, toast). Then eat your usual diet if not nauseated. Treatment For Common After Affects For mild abdominal pain, bloating, or excessive gas: - Rest - Eat lightly - Lie on right side Follow-Up Information Follow-up with Dr. Dao as scheduled Anesthesia Information What You Should Know You have had a procedure that required some medicine to reduce anxiety and discomfort. This treatment is called moderate sedation. After receiving the treatment, you may be sleepy, but you will be able to breathe on your own. The effects of the treatment may last for several hours. Follow these instructions along with Activity/Diet recommendations noted above: * Do NOT do anything where dizziness or clumsiness would be dangerous. * Rest quietly at home today, then you can be up and about tomorrow. * Have a responsible person stay with you the rest of today. * You may have had an I.V. today. If so, you may take the dressing off later today. Recommendations Call your doctor if: * Trouble breathing * Continuous vomiting for more than 24 hours * Temperature above 101 degrees * Severe abdominal pain or bloating * Pain not relieved by pain medicine ordered * There is increased drainage or redness from any incision * A large amount of rectal bleeding greater than 2-3 tablespoons. (If you had a polyp/s removed or have hemorrhoids, a small amount of blood - from the rectum is to be expected.) * You have any unanswered questions or concerns. IN THE EVENT OF A SERIOUS EMERGENCY, GO TO THE NEAREST EMERGENCY ROOM Your discharge instructions were prepared by provider Jeet Merchant. Patient Instructions Signature Page Popeye Mijares Patient (or Guardian) Signature/Date: I have read and understand the instructions given to me by my caregivers. Caregiver/RN/Doctor Signature/Date: The above-named patient and/or guardian has received patient instructions on this date. + Original Patient Signature Page (only) stays with chart. Please make copy for patient.
--- NOTE | 2018-02-01 11:27 | GI REPORT ---
Patient Name: Popeye Mijares Procedure Date: 02/01/2018 10:24 AM Date of : 1950 Admit Type: Outpatient Age: 68 Gender: Male Attending MD: Jeet Merchant DO Procedure: Colonoscopy Providers: Jeet Merchant DO Referring MD: Joaquín Dao Indications: Screening for colorectal malignant neoplasm Medicines: Monitored Anesthesia Care Complications: No immediate complications. Estimated Blood Loss: Estimated blood loss: none. Procedure: Pre-Anesthesia Assessment: - Prior to the procedure, a History and Physical was performed, and patient medications and allergies were reviewed. The patient's tolerance of previous anesthesia was also reviewed. The risks and benefits of the procedure and the sedation options and risks were discussed with the patient. All questions were answered, and informed consent was obtained. Prior Anticoagulants: The patient has taken aspirin, last dose was 7 days prior to procedure. ASA Grade Assessment: III - A patient with severe systemic disease. After reviewing the risks and benefits, the patient was deemed in satisfactory condition to undergo the procedure. After I obtained informed consent, the scope was passed under direct vision. Throughout the procedure, the patient's blood pressure, pulse, and oxygen saturations were monitored continuously. The scope was introduced through the anus and advanced to the terminal ileum. The colonoscopy was performed without difficulty. The patient tolerated the procedure well. The quality of the bowel preparation was good. The terminal ileum, ileocecal valve, appendiceal orifice, and rectum were photographed. Findings: The perianal and digital rectal examinations were normal. Three sessile polyps were found in the descending colon and cecum. The polyps were 4 to 7 mm in size. These polyps were removed with a hot snare. Resection and retrieval were complete. Non-bleeding internal hemorrhoids were found during retroflexion. The hemorrhoids were small. Impression: - Three 4 to 7 mm polyps in the descending colon and in the cecum, removed with a hot snare. Resected and retrieved. - Non-bleeding internal hemorrhoids. Recommendation: - Resume previous diet. - Continue present medications. - Repeat colonoscopy for surveillance based on pathology results. - Return to primary care physician as previously scheduled. Jeet Merchant DO 02/01/2018 11:26:51 AM This report has been signed electronically. Note Initiated On: 02/01/2018 10:24 AM Number of Addenda: 0 I attest to the content of the Intraoperative Record and orders documented therein, exceptions below {[id number]}
--- NOTE | 2018-02-01 11:33 | Anesthesiology Progress Note ---
Anesthesia Post Op Note Date & Time February 01, 2018 at 11:32 Vital Signs Pain Intensity: 0 Vital Signs Past 12 Hours Date Time Temp Pulse Resp B/P (MAP) Pulse Ox O2 Delivery O2 Flow Rate FiO2 02/01/18 11:11 36.8 67 12 109/82 (91) 96 Room Air 02/01/18 09:58 36.8 67 18 162/95 (117) 99 Room Air Notes Mental Status: alert / awake / arousable, participated in evaluation Pt Amnestic to Procedure: Yes Nausea / Vomiting: adequately controlled Pain: adequately controlled Airway Patency, RR, SpO2: stable & adequate BP & HR: stable & adequate Hydration State: stable & adequate Anesthetic Complications: no major complications apparent
[2018-02-01 11:41] VITALS: BP 135/76; PULSE 51; O2SAT 95
== END | disposition home or self-care (01) ==
LOC: C.GI 08:59
PROVIDERS: ATTEND Internal Medicine
DX: Z12.11 Encounter for screening for malignant neoplasm of colon (principal); D12.0 Benign neoplasm of cecum; D12.4 Benign neoplasm of descending colon; I25.10 Atherosclerotic heart disease of native coronary artery without angina pectoris; K64.8 Other hemorrhoids; E78.00 Pure hypercholesterolemia, unspecified; I11.9 Hypertensive heart disease without heart failure; Z95.1 Presence of aortocoronary bypass graft; Z79.82 Long term (current) use of aspirin; Z88.0 Allergy status to penicillin; Z90.49 Acquired absence of other specified parts of digestive tract; Z87.891 Personal history of nicotine dependence; Z80.0 Family history of malignant neoplasm of digestive organs

== ENCOUNTER → 2018-04-11 | Outpatient (CLI) | payer BC ==
[~2018-04-11] MED LIST changes: -ATROPINE SULFATE 0.1 MG/ML 5ML SYR IV PRN; +DUTA1CAP17; -DUTA1CAP3; -EpHEDrine SULFATE INJ 50 MG/ML AMP IV PRN; -FENTANYL CITRATE INJ 50 MCG/1 ML 2 ML VIAL ONE; -LIDOCAINE HCL 2% 2 ML VIAL (20MG/ML) ONE; +LISI-726 PO; -LSN20 PO; -MIDAZOLAM HCL 1 MG/ML 2ML VIAL ONE; -ONDANSETRON INJ 2 MG/ML 2 ML VIAL ONE; -PROPOFOL IV EMULSION 10 MG/ML 20 ML VIAL ONE; -SODIUM CHLORIDE 0.9% 500ML 500 ML IV ONE
[2018-04-11 12:27] LABS: BASO % 0.1 %; BASO ABS # 0.01 K/uL (0-0.2); EOS % 1.9 %; EOS ABS # 0.13 K/uL (0-0.5); HEMATOCRIT 42.7 % (42-52); HEMOGLOBIN 15.1 g/dL (14.0-18.0); IG# 0.01 K/uL (0.00-0.02); LYMPH % 27.5 %; LYMPH ABS # 1.88 K/uL (1.2-3.4); MEAN CELL VOLUME 92.6 fL (80-100); MEAN CORPUSCULAR HEMOGLOBIN 32.8 pg (25-34); MEAN CORPUSCULAR HGB CONC 35.4 g/dl (32-36); MEAN PLATELET VOLUME 10.9 fL (7.4-10.4); MONO % 8.9 %; MONO ABS # 0.61 K/uL (0.11-0.59); NEUT % 61.5 %; NEUT ABS # 4.19 K/uL (1.4-6.5); PLATELET COUNT 149 K/uL (130-400); RED CELL DISTRIBUTION WIDTH CV 11.9 % (11.5-14.5); RED CELL DISTRIBUTION WIDTH SD 40.1 fL (36.4-46.3); WHITE BLOOD COUNT 6.83 K/uL (4.8-10.8)
[2018-04-11 12:47] LABS: ALBUMIN 3.7 gm/dl (3.4-5.0); ALKALINE PHOSPHATASE 93 U/L (45-117); ALT/SGPT 33 U/L (12-78); AST/SGOT 22 U/L (15-37); BLOOD UREA NITROGEN 21 mg/dl (7-18); CALCIUM 8.7 mg/dl (8.5-10.1); CARBON DIOXIDE 27 mmol/L (21-32); CHOLESTEROL 132 mg/dl (0-200); GLUCOSE 101 mg/dl (70-99); LDL CHOLESTEROL CALCULATED 73 mg/dl; POTASSIUM 4.2 mmol/L (3.5-5.1); SODIUM 139 mmol/L (136-145); TOTAL PROTEIN 7.1 gm/dl (6.4-8.2)
[2018-04-11 13:12] LABS: HEMOGLOBIN A1C 5.3 % (4.5-5.6)
== END | disposition home or self-care (01) ==
LOC: C.LABBFT 08:47
PROVIDERS: ATTEND Internal Medicine
DX: I25.10 Atherosclerotic heart disease of native coronary artery without angina pectoris (principal); R73.01 Impaired fasting glucose

== ENCOUNTER 2018-05-01 08:10 | Emergency (ER) | payer BC ==
[~2018-05-01] VITALS: Ht 177.8 cm; Wt 111.0 kg
[~2018-05-01 08:10] MED LIST changes: -DUTA1CAP17; +DUTA1CAP17 PO
[2018-05-01 08:12] VITALS: TEMP 36.7; Ht 177.8 cm; Wt 111.0 kg
--- NOTE | 2018-05-01 09:57 | DIAGNOSTIC IMAGING REPORT ---
LEFT LOWER EXTREMITY VENOUS DOPPLER CLINICAL HISTORY: Left leg swelling. COMPARISON STUDY: Left lower extremity venous Doppler August 26, 2016. TECHNIQUE: Sonography of the deep venous system of the left lower extremity was performed. Compression and augmentation were evaluated. FINDINGS: The left common femoral, superficial femoral and popliteal veins were compressible. Augmentation was normal. Flow was shown within the deep calf vessels. IMPRESSION: No evidence of deep venous thrombus within the left lower extremity. Electronically signed by: Tayo Granados M.D. 05/01/2018 9:55 AM Dictated Date/Time: 05/01/2018 9:55 AM
--- NOTE | 2018-05-01 10:11 | EMERGENCY ROOM VISIT NOTE ---
History First contact with patient: 08:18 Chief Complaint: LEG PAIN,LEG INJURY Stated Complaint: LEG PAIN History of Present Illness The patient is a 68 year old male who presents to the Emergency Room with complaints of left leg swelling. The patient states that he noticed the symptoms a couple of days ago. He reports some discomfort in the left calf area but primarily the left lateral and medial calf. He states that a couple of weeks ago he hurt his left knee and there was some swelling in his left knee. The swelling has subsided and his discomfort has subsided but now he has recognized the swelling in his leg. 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 The patient denies any other symptoms. Denies any chest pains or shortness of breath. Walking makes his symptoms a little worse. He has not had any fevers or additional trauma. The patient is not currently on anticoagulation. Review of Systems As above otherwise negative for 10 systems Past Medical/Surgical History DVT, PE, high cholesterol, hypertension Social History Smoking Status: Former Smoker Drug Use: none Marital Status: Housing Status: lives with family Occupation Status: retired Current/Historical Medications Scheduled Alfuzosin Hcl (Uroxatral), 10 MG PO HS Aspirin (Aspirin Ec), 325 MG PO DAILY Dutasteride (Dutasteride), 0.5 MG PO DAILY Lisinopril (Lisinopril), 20 MG PO DAILY Metoprolol Succ (Toprol Xl) (Toprol-Xl), 50 MG PO QAM [place]-3 Fatty Acids (Fish Oil 1200 mg), 2 CAP PO DAILY Omeprazole (Prilosec), 20 MG PO DAILY Simvastatin (Simvastatin), 80 MG PO HS Tramadol (Ultram), 100 MG PO TID Physical Exam Vital Signs Date Time Temp Pulse Resp B/P (MAP) Pulse Ox O2 Delivery O2 Flow Rate FiO2 05/01/18 08:12 36.7 76 18 197/91 97 Room Air Physical Exam CONSTITUTIONAL/VITAL SIGNS: Reviewed / noted above. GENERAL: Non-toxic in appearance. INTEGUMENTARY: Warm, dry, and [place]. HEAD: Normocephalic. EYES: without scleral icterus or trauma. ENT/OROPHARYNX: clear and moist. LYMPHADENOPATHY/NECK: Is supple without lymphadenopathy or meningismus. RESPIRATORY: Lungs clear and equal. CARDIOVASCULAR: Regular rate and rhythm. GI/ABDOMEN: Soft and nontender. No organomegaly or pulsatile mass. No rebound or guarding. Normal bowel sounds. EXTREMITIES: Warm and well perfused. There is some mild swelling to the left lower extremity compared to the right. He has mild tenderness to palpation of the left medial and lateral aspects of the calf but not posteriorly. There is no ligamentous laxity or swelling around the left knee per distal pulses are intact BACK: No CVA tenderness. NEUROLOGICAL: Intact without focal deficits. PSYCHIATRIC: normal affect. MUSCULOSKELETAL: Normally developed with good muscle tone. TRIAGE NURSING DOCUMENTATION REVIEWED. Medical Decision & Procedures ER Provider Diagnostic Interpretation: LEFT LOWER EXTREMITY VENOUS DOPPLER CLINICAL HISTORY: Left leg swelling. COMPARISON STUDY: Left lower extremity venous Doppler August 26, 2016. TECHNIQUE: Sonography of the deep venous system of the left lower extremity was performed. Compression and augmentation were evaluated. FINDINGS: The left common femoral, superficial femoral and popliteal veins were compressible. Augmentation was normal. Flow was shown within the deep calf vessels. IMPRESSION: No evidence of deep venous thrombus within the left lower extremity. Medical Decision Differential includes swelling related to recent knee injury, DVT, cellulitis, other vascular occlusion, abscess, hematoma. The patient is a 68 year old male who presents to the Emergency Room with complaints of left leg swelling. The patient states that he noticed the symptoms a couple of days ago. He reports some discomfort in the left calf area but primarily the left lateral and medial calf. He states that a couple of weeks ago he hurt his left knee and there was some swelling in his left knee. The swelling has subsided and his discomfort has subsided but now he has recognized the swelling in his leg. 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 The patient denies any other symptoms. Denies any chest pains or shortness of breath. Walking makes his symptoms a little worse. He has not had any fevers or additional trauma. The patient is not currently on anticoagulation. Ultrasound leg did not show DVT. The patient was told the results. He is felt to be stable for discharge. Blood Pressure Screening Patient's blood pressure: Elevated blood pressure Blood pressure disposition: Referred to PCP Impression Primary Impression: Right leg swelling Departure Information Dispostion Home / Self-Care Referrals Joaquín Dao M.D. (PCP) Patient Instructions [facility] Additional Instructions Your blood pressure today is elevated. Follow-up with your doctor for recheck of this. The ultrasound did not show a blood clot today. Follow-up with your doctor for further care and evaluation in 3-10 days. Return to the emergency department for worsening or new symptoms or any concerns. You have been examined and treated today on an emergency basis only. This is not a substitute for, or an effort to provide, complete comprehensive medical care. It is impossible to recognize and treat all injuries or illnesses in a single emergency department visit. It is therefore important that you follow up closely with your doctor. Call as soon as possible for an appointment.
[2018-05-01 10:12] VITALS: BP 160/91; PULSE 60; O2SAT 97
== END 2018-05-01 10:21 | disposition home or self-care (01) ==
LOC: C.EDB 08:11
DX: M79.89 Other specified soft tissue disorders (principal); Z86.718 Personal history of other venous thrombosis and embolism; Z86.711 Personal history of pulmonary embolism; E78.00 Pure hypercholesterolemia, unspecified; I10 Essential (primary) hypertension; Z87.891 Personal history of nicotine dependence; Z79.82 Long term (current) use of aspirin; Z79.899 Other long term (current) drug therapy

== ENCOUNTER 2019-03-13 22:45 | Observation (INO) ==
--- NOTE | 2019-03-13 23:07 | Emergency Department Note ---
History of Present Illness General Chief complaint: Chest Pain Stated complaint: CHEST PAIN History of Present Illness Maximum Pain Intensity: 5 This 69-year-old presents to the ER complaining of chest pain Location: Chest Quality: Pressure Severity: Moderate Duration: Tonight Timing: Started at 9 PM Context: Patient was concerned and came in Modifying factors: better with aspirin; worse with nothing Patient states the pain radiates to his back and became sweaty with this. Patient states he feels better now. He had a CABG in . He had blood clots a few years ago. He takes a full aspirin. Patient states he feels much better now. Pain is minimal. Patient denies dyspnea, abdominal pain, leg swelling, fever, chills. Home Medications Home Medications Medication Instructions Recorded Confirmed Type alfuzosin 10 mg PO DAILY 03/14/19 03/14/19 History aspirin 325 mg PO DAILY 03/14/19 03/14/19 History dutasteride 0.5 mg PO DAILY 03/14/19 03/14/19 History lisinopril 20 mg PO QAM 03/14/19 03/14/19 History metoprolol succinate 50 mg PO DAILY 03/14/19 03/14/19 History omeprazole 20 mg PO DAILY 03/14/19 03/14/19 History simvastatin 80 mg PO HS 03/14/19 03/14/19 History tramadol 100 mg PO TID 03/14/19 03/14/19 History Allergies Allergy/AdvReac Type Severity Reaction Status Date / Time Penicillins Allergy Unknown MD CASTLE Verified 03/14/19 01:50 WANTS MEFOXIN 12/20/04 Past Med/Surg History Medical History Dyslipidemia High blood pressure Surgical History Hx of CABG Social History Feels Safe at Home: Yes Smoking Status: Never smoker Review of Systems All systems reviewed & are unremarkable except as noted in HPI & below Physical Exam Vital Signs Vital Signs - 24 hr 03/13/19 22:46 03/13/19 23:09 03/13/19 23:37 Temperature 36.6 C Temperature Source Oral Sepsis Recent Fever Within 48 Hours No Sepsis New/Unexplained Change in Mental Status No Sepsis Action Taken by Nursing No Action Required Pulse Rate 59 L Pulse Rate [Apical] Pulse Rhythm [Apical] Pulse Strength [Apical] Respiratory Rate 16 Respiratory Effort / Characteristics Non-Labored Spontaneous Respiratory Depth Normal Blood Pressure 223/103 H Blood Pressure [Right Arm] Blood Pressure Mean 143 Blood Pressure Mean [Right Arm] Blood Pressure Position [Right Arm] Pulse Oximetry 99 98 98 Oxygen Delivery Method Room Air Room Air Room Air Fraction of Inspired Oxygen 03/13/19 23:53 03/13/19 23:54 03/14/19 00:19 Temperature Temperature Source Sepsis Recent Fever Within 48 Hours Sepsis New/Unexplained Change in Mental Status Sepsis Action Taken by Nursing Pulse Rate Pulse Rate [Apical] 63 60 Pulse Rhythm [Apical] Regular Pulse Strength [Apical] Normal Respiratory Rate 18 18 Respiratory Effort / Characteristics Non-Labored Respiratory Depth Normal Blood Pressure Blood Pressure [Right Arm] 206/93 H 199/101 H Blood Pressure Mean Blood Pressure Mean [Right Arm] 130 133 Blood Pressure Position [Right Arm] Lying Sitting Pulse Oximetry 98 97 Oxygen Delivery Method Room Air Room Air Room Air Fraction of Inspired Oxygen 98 03/14/19 00:44 03/14/19 01:22 Temperature Temperature Source Sepsis Recent Fever Within 48 Hours Sepsis New/Unexplained Change in Mental Status Sepsis Action Taken by Nursing Pulse Rate Pulse Rate [Apical] 54 L 63 Pulse Rhythm [Apical] Regular Regular Pulse Strength [Apical] Normal Normal Respiratory Rate 18 18 Respiratory Effort / Characteristics Non-Labored Spontaneous Non-Labored Respiratory Depth Normal Normal Blood Pressure Blood Pressure [Right Arm] 201/87 H 181/93 H Blood Pressure Mean Blood Pressure Mean [Right Arm] 125 122 Blood Pressure Position [Right Arm] Lying Lying Pulse Oximetry 96 98 Oxygen Delivery Method Room Air Room Air Fraction of Inspired Oxygen VITALS: Vitals are noted on the nurse's note and reviewed by myself. Vital signs hypertensive. GENERAL: Pleasant male, in no acute distress, nondiaphoretic, well-developed well-nourished. SKIN: The skin was without rashes, erythema, edema, or bruising. There is no tenting of the skin. Capillary reflex less than 2 seconds. HEAD: Normocephalic atraumatic. EARS: External auditory canals clear, tympanic membranes pearly sexton without erythema or effusion bilaterally. EYES: Pupils equal round and reactive to light and accommodation. Conjunctivae without injection, sclerae without icterus. Extraocular movements intact. NOSE: Patent, turbinates without inflammation or discharge. MOUTH: Mucous membranes moist. Pharynx without erythema or exudate. Uvula midline. Airway patent. Tongue does not deviate. NECK: Supple without nuchal rigidity. No lymphadenopathy. No thyromegaly. Cervical spine is nontender. No JVD. HEART: Regular rate and rhythm LUNGS: Clear to auscultation bilaterally without wheezes, rales or rhonchi. No retractions or accessory muscle use. ABDOMEN: Positive bowel sounds x 4. Normal tympanic percussion. Soft, non tender, without masses or organomegaly. Wheeler sign negative. No guarding or rebound tenderness. No CVA tenderness MUSCULOSKELETAL: No muscle atrophy, erythema, or edema noted. NEURO: Patient was alert and oriented to person place and time. Normal sensation to light and sharp touch. No focal neurological deficits. Course Administered Medications Ioversol (Optiray 320 125ml) 125 ml IV ONCE PRN PRN Reason: Interaction Checking Stop: 03/18/19 00:05 Last Admin: 03/14/19 00:06 Dose: 117 ml Documented by: [id number] Discontinued Medications Hydralazine HCl (Hydralazine Hcl) 10 mg IV NOW STA Stop: 03/14/19 00:32 Last Admin: 03/14/19 00:38 Dose: 10 mg Documented by: [id number] Medical Decision Making Medical Records Attestation: I reviewed the patient's medical records. Home Medications Current Medication List: was personally reviewed by nm Laboratory Data Attestation: I reviewed the patient's lab results. Result diagrams: 03/13/19 23:21 03/13/19 23:21 Lab Results 03/13/19 03/13/19 03/13/19 Range/Units 23:21 23:21 23:21 WBC 7.54 (4.8-10.8) K/uL RBC 4.49 L (4.7-6.1) M/uL Hgb 14.2 (14.0-18.0) g/dL POC Hgb (14.0-18.0) g/dl Hct 40.1 L (42-52) % POC Hct (42-52) % MCV 89.3 (80-100) fL MCH 31.6 (25-34) pg MCHC 35.4 (32-36) g/dL RDW Std Deviation 38.3 (36.4-46.3) fL RDW Coeff of Caitlin 11.9 (11.5-14.5) % Plt Count 151 (130-400) K/uL MPV 10.2 (7.4-10.4) fL Immature Gran % (Auto) 0.4 % Neut % (Auto) 63.8 % Lymph % (Auto) 24.9 % Woodford % (Auto) 7.8 % Eos % (Auto) 2.8 % Baso % (Auto) 0.3 % Immature Gran # (Auto) 0.03 H (0.00-0.02) K/uL Neut # (Auto) 4.81 (1.4-6.5) K/uL Lymph # (Auto) 1.88 (1.2-3.4) K/uL Woodford # (Auto) 0.59 (0.11-0.59) K/uL Eos # (Auto) 0.21 (0-0.5) K/uL Baso # (Auto) 0.02 (0-0.2) K/uL POC Sodium (135-144) mEq/L Sodium 141 (136-145) mmol/L POC Potassium (3.3-5.0) mEq/L Potassium 3.7 (3.5-5.1) mmol/L POC Chloride (101-112) mEq/L Chloride 109 H (98-107) mmol/L Carbon Dioxide 28 (21-32) mmol/L POC Total CO2 (24-31) mEq/l Anion Gap 4.0 (3-11) POC Anion Gap (16-25) mmol/L POC BUN (7-18) mg/dl BUN 16 (7-18) mg/dl Creatinine 0.89 (0.6-1.4) mg/dl POC Creatinine (0.6-1.3) mg/dl Est Cr Clr Drug Dosing 97.7 ml/min Est GFR ( Amer) 101.1 Est GFR (Non-Af Amer) 87.2 BUN/Creatinine Ratio 18.1 (10-20) Glucose 126 H (70-99) mg/dl POC Glucose (other) (70-99) mg/dl Calcium 8.5 (8.5-10.1) mg/dl POC Ioniz Calcium Reynaldo (1.12-1.32) mmol/l Total Bilirubin 0.4 (0.2-1) mg/dl AST 21 (15-37) U/L ALT 39 (12-78) U/L Alkaline Phosphatase 114 (45-117) U/L POC Troponin I < 0.03 (0-0.045) ng/ml Troponin I 0.027 (0-0.045) ng/ml Total Protein 7.0 (6.4-8.2) gm/dl Albumin 3.4 (3.4-5.0) gm/dl Globulin 3.6 (2.5-4.0) gm/dl Albumin/Globulin Ratio 0.9 (0.9-2) Lipase 133 (73-393) U/L 03/13/19 Range/Units 23:32 WBC (4.8-10.8) K/uL RBC (4.7-6.1) M/uL Hgb (14.0-18.0) g/dL POC Hgb 13.6 L (14.0-18.0) g/dl Hct (42-52) % POC Hct 40 L (42-52) % MCV (80-100) fL MCH (25-34) pg MCHC (32-36) g/dL RDW Std Deviation (36.4-46.3) fL RDW Coeff of Caitlin (11.5-14.5) % Plt Count (130-400) K/uL MPV (7.4-10.4) fL Immature Gran % (Auto) % Neut % (Auto) % Lymph % (Auto) % Woodford % (Auto) % Eos % (Auto) % Baso % (Auto) % Immature Gran # (Auto) (0.00-0.02) K/uL Neut # (Auto) (1.4-6.5) K/uL Lymph # (Auto) (1.2-3.4) K/uL Woodford # (Auto) (0.11-0.59) K/uL Eos # (Auto) (0-0.5) K/uL Baso # (Auto) (0-0.2) K/uL POC Sodium 142 (135-144) mEq/L Sodium (136-145) mmol/L POC Potassium 3.6 (3.3-5.0) mEq/L Potassium (3.5-5.1) mmol/L POC Chloride 105 (101-112) mEq/L Chloride (98-107) mmol/L Carbon Dioxide (21-32) mmol/L POC Total CO2 24 (24-31) mEq/l Anion Gap (3-11) POC Anion Gap 18.0 (16-25) mmol/L POC BUN 15 (7-18) mg/dl BUN (7-18) mg/dl Creatinine (0.6-1.4) mg/dl POC Creatinine 0.8 (0.6-1.3) mg/dl Est Cr Clr Drug Dosing ml/min Est GFR ( Amer) Est GFR (Non-Af Amer) BUN/Creatinine Ratio (10-20) Glucose (70-99) mg/dl POC Glucose (other) 131 H (70-99) mg/dl Calcium (8.5-10.1) mg/dl POC Ioniz Calcium Reynaldo 1.18 (1.12-1.32) mmol/l Total Bilirubin (0.2-1) mg/dl AST (15-37) U/L ALT (12-78) U/L Alkaline Phosphatase (45-117) U/L POC Troponin I (0-0.045) ng/ml Troponin I (0-0.045) ng/ml Total Protein (6.4-8.2) gm/dl Albumin (3.4-5.0) gm/dl Globulin (2.5-4.0) gm/dl Albumin/Globulin Ratio (0.9-2) Lipase (73-393) U/L Imaging Data Attestation: I personally reviewed and interpreted this imaging study as follows: Blood Pressure Blood Pressure Findings: Elevated blood pressure Blood Pressure Disposition: Referred to patients primary care provider MDM Narrative Prior records/ancillary studies reviewed. Triage Nursing notes reviewed. Additional history obtained from family. The patient's history was concerning for chest pain. Differential diagnosis: Etiologies such as cardiac ischemia, aortic dissection, pulmonary embolism, pneumonia, pneumothorax, musculoskeletal, infections, pericarditis, myocarditis, esophageal rupture, gastrointestinal, as well as others were entertained. Physical examination: As above. ER treatment provided: Hydralazine. Patient already took a full aspirin today and 2 extra aspirins because of the chest pain just prior to arrival. On reassessment the patient felt better. Diagnostic interpretation by me: The electrocardiogram was poor baseline, normal sinus, left axis deviation, T wave inversion in the anterior leads, minimal ST depression lateral leads, rate of 64. EKG compared to prior EKG with new minimal ST depression in the lateral leads interpreted by myself I think arrhythmia is unlikely. EKG shows normal sinus rhythm with no interval abnormalities such as QT prolongation or WPW. There are no findings to suggest Brugada syndrome. Cardiac monitoring in the emergency department reveals no tachycardic or bradycardic dysrhythmia. Hypertrophic cardiomyopathy was considered but there are no clear historical elements pointing toward this. EKG is not suggestive. The QRS voltage is not extremely large and there are no suggestive Q waves. The labs revealed negative troponin. Imaging studies: Chest x-ray with no acute consolidation, pneumothorax or free air per my interpretation. Stable compared to prior chest x-ray CTA CHEST: 11/08/2016. Without and with contrast. No PE. No aortic dissection or aneurysm Sternotomy, CABG, Coronary calcifications. Lungs clear. Radiologist: Nneka Goodrich M.D. HEART SCORE: Hx: high/mod/low suspicion: 1 ECG: ST depression/nonspecific changes/normal: 1 Age: Greater than 65/45-64/less than 45: 2 Risk factors: (Hypertension, hyperlipidemia, diabetes, coronary disease, tobacco use, cocaine use): 2 Troponin: Greater than 2 times normal limits/1-2 times normal limits/normal: 0 Total: 6 Consultation: A consultation was placed with the hospitalist, Dr. Devlin. The case was d iscussed and diagnostics were reviewed. The patient was evaluated in the ER for further treatment. Exam and history seem consistent with chest pain with concerns for cardiac in etiology. No recent stress or echo. Patient's heart score is 6. He has some subtle EKG changes. Troponin is negative. He is only had symptoms for an hour and a half. CTA was negative. Patient is agreeable treatment plan of admission. Patient was given hydralazine for his high blood pressure. He was bradycardic in the ER. He was chest pain-free in the ER. By the evaluation outlined above emergent etiologies such as aortic dissection, pulmonary embolism, pneumonia, pneumothorax, infections, pericarditis, myocarditis, gastrointestinal, as well as others were deemed relatively unlikely. The pt informed about the findings as listed above. All questions were answered and pleased with the treatment. The chart was completed utilizing [employer] Speech voice recognition software. Grammatical errors, random word insertions, pronoun errors, and incomplete sentences are an occassional consequence of this system due to software limitations, ambient noise, and hardware issues. Any formal questions or concerns about the content, text, or information contained within the body of this dictation should be directly addressed to the physician administrative personal assistant for clarification. Impression & Plan Atypical chest pain Discharge Plan Visit Data Chief Complaint: Chest Pain Stated Complaint: CHEST PAIN ED Provider: Tha Ratliff ED Midlevel Provider: Katiuska Reyes Discharge Problem: Atypical chest pain Patient Disposition: Being Evaluated by Hospitalist Condition: Good Forms Stand Alone Forms: Call Back Authorization, [facility] Prescriptions Prescriptions: No Action metoprolol succinate 50 mg tablet extended release 24 hr 50 mg PO DAILY RF: 0 tramadol 50 mg tablet 100 mg PO TID RF: 0 omeprazole 20 mg capsule,delayed release(DR/EC) 20 mg PO DAILY RF: 0 dutasteride 0.5 mg capsule 0.5 mg PO DAILY RF: 0 alfuzosin 10 mg tablet extended release 24 hr 10 mg PO DAILY RF: 0 lisinopril 20 mg Tablet 20 mg PO QAM RF: 0 simvastatin 80 mg Tablet 80 mg PO HS RF: 0 aspirin 325 mg Tablet 325 mg PO DAILY RF: 0 Referrals Referrals: Joaquín Dao III, MD [Primary Care Provider] -
[2019-03-13 23:32] LABS: Basophils # (auto) 0.02 K/uL (0-0.2); Basophils % (auto) 0.3 %; Eosinophils # (auto) 0.21 K/uL (0-0.5); Eosinophils % (auto) 2.8 %; Hematocrit (blood only) 40.1 % (42-52); Hemoglobin 14.2 g/dL (14.0-18.0); Immature Granulocytes # (auto) 0.03 K/uL (0.00-0.02); Immature Granulocytes % (auto) 0.4 %; Lymphocytes # (auto) 1.88 K/uL (1.2-3.4); Lymphocytes % (auto) 24.9 %; Mean Corpuscular Hgb Conc 35.4 g/dL (32-36); Mean Corpuscular Volume 89.3 fL (80-100); Mean Platelet Volume 10.2 fL (7.4-10.4); Monocytes # (auto) 0.59 K/uL (0.11-0.59); Monocytes % (auto) 7.8 %; Neutrophils # (auto) 4.81 K/uL (1.4-6.5); Neutrophils % (auto) 63.8 %; Platelet Count 151 K/uL (130-400); RDW Coefficient of Variation 11.9 % (11.5-14.5); RDW Standard Deviation 38.3 fL (36.4-46.3); Red Blood Count 4.49 M/uL (4.7-6.1); White Blood Count 7.54 K/uL (4.8-10.8)
[2019-03-13 23:51] LABS: Albumin Level 3.4 gm/dl (3.4-5.0); BUN Creatinine Ratio 18.1 (10-20); Calcium 8.5 mg/dl (8.5-10.1); Creatinine Clr Calc Pharmacy 97.7 ml/min; Est GFR (African American) 101.1; Est GFR (Non-African American) 87.2; Potassium 3.7 mmol/L (3.5-5.1)
[2019-03-13 23:56] LABS: Albumin Globulin Ratio 0.9 (0.9-2); Bilirubin,Total 0.4 mg/dl (0.2-1); Globulin 3.6 gm/dl (2.5-4.0); Troponin I 0.027 ng/ml (0-0.045)
[2019-03-14] MEDS ORDERED: OPTIRAY 320 125ml IV PRN (00:06)
[2019-03-14 00:09] LABS: iSTAT Creatinine 0.8 mg/dl (0.6-1.3); iSTAT Hemoglobin 13.6 g/dl (14.0-18.0); iSTAT Ionized Calcium 1.18 mmol/l (1.12-1.32); iSTAT Potassium 3.6 mEq/L (3.3-5.0)
[2019-03-14] MEDS ORDERED: NITROGLYCERIN SL 0.4 MG/TAB TAB SL STA (00:18)
[2019-03-14] MEDS ORDERED: HydrALAZINE HCL 20 MG/ML VIAL IV STA (00:31)
--- NOTE | 2019-03-14 02:20 | History & Physical Report ---
Date of Service March 14, 2019 Assessment & Plan (1) Chest pain of uncertain etiology: Chest pain/CAD/status post CABG x3/hypertension/history of OR- The patient will be admitted to telemetry for serial cardiac enzymes, serial EKG's, cardiac rhythm monitoring and a 2-D echocardiogram with Dopplers. Continue metoprolol succinate 50 mg p.o. daily, lisinopril 20 mg every morning. For now hold aspirin. Main differential for this patient is angina versus GI irritation associated with NSAID use Present on Admission?: Yes (2) CAD (coronary artery disease): See above Present on Admission?: Yes (3) S/P CABG x 3: See above Present on Admission?: Yes (4) Hypertension: See above Present on Admission?: Yes (5) History of OR (myocardial infarction): See above Present on Admission?: Yes (6) Hyperlipidemia LDL goal <70: Continue simvastatin 80 mg p.o. at bedtime. Check a fasting lipid panel if not done recently. Present on Admission?: Yes (7) DVT (deep venous thrombosis): Treated in the past. Present on Admission?: Yes (8) Pulmonary embolism: Treated in the past, and CTA tonight negative for PE Present on Admission?: Yes (9) BPH (benign prostatic hyperplasia): Continue dutasteride and alfuzosin. Monitor blood pressure closely if given nitroglycerin sublingual's due to possible interactive effect with alfuzosin in acutely lowering blood pressure Present on Admission?: Yes (10) Osteoarthritis of left knee: We will have him stop ibuprofen. Do a trial of Voltaren gel 4 times daily as needed. Tramadol 100 mg p.o. 3 times daily as needed Present on Admission?: Yes (11) Compression fracture of thoracic vertebrae, non-traumatic: Hold ibuprofen as noted above. Continue tramadol 100 mg p.o. 3 times daily as needed Present on Admission?: Yes (12) GERD (gastroesophageal reflux disease): Continue omeprazole 20 mg p.o. daily or change to pantoprazole 40 mg daily. If cardiac work-up is negative, would consider consulting gastroenterology for possible EGD. Present on Admission?: Yes History of Present Illness Chief Complaint: The patient presents to the emergency department with complaint of waxing and waning chest pain, that began around 9:00 this evening, began centrally in the chest and went back between his shoulder blades. Primary Care Provider: Joaquín Dao MD The patient is a 69-year-old male with past medical history including CAD, status post CABG x3, history of OR, hypertension, DVT, PE, GERD, osteoarthritis in particular involving left knee, BPH and hyperlipidemia, who presents with the acute onset of chest pain radiating to his back between his shoulder blades beginning around 9 PM this evening. Patient reports he took 2 full-strength aspirin which helped his symptoms somewhat, and when he arrived in the ED he was given additional medication: Hydralazine IV and nitroglycerin sublingual's, and his pain is since gone. The pain initially had a waxing and waning process where it would reach a peak, and then improve. He was out in the sun a lot today, and did not keep up with his fluids, and appears somewhat dehydrated. He reports that he takes 9-12 ibuprofen daily for left knee pain, and has had more issues with reflux recently. He denies blood in urine or stool. He feels that the pain is similar to that in which he has had his OR in the past. Allergies Allergy/AdvReac Type Severity Reaction Status Date / Time Penicillins Allergy Unknown MD CASTLE Verified 03/14/19 01:50 WANTS MEFOXIN 12/20/04 Home Medications Home Medications Medication Instructions Recorded Confirmed Type alfuzosin 10 mg PO QPM 03/14/19 03/14/19 History aspirin 325 mg PO DAILY 03/14/19 03/14/19 History dutasteride 0.5 mg PO DAILY 03/14/19 03/14/19 History lisinopril 20 mg PO QAM 03/14/19 03/14/19 History metoprolol succinate 50 mg PO DAILY 03/14/19 03/14/19 History omeprazole 20 mg PO DAILY 03/14/19 03/14/19 History simvastatin 80 mg PO HS 03/14/19 03/14/19 History tramadol 100 mg PO TID 03/14/19 03/14/19 History Past Med/Surg History Medical History Arthritis Dyslipidemia Gallbladder calculus with acute cholecystitis High blood pressure Vertigo Surgical History Hx of CABG Social History Preferred Language: Maldivian Face Hardener Required: No Beliefs That Will Affect Care: None Current Living Situation: Spouse Other Information That Helps Us Care for You: No Feels Safe at Home: Yes Safety Concerns: Feels Safe At This Time Smoking Status: Former smoker Tobacco Type: cigarettes Do You Dip or Chew Tobacco: No Second Hand Exposure: Yes Tobacco Cessation Education Requested by Patient: No Hx Alcohol Use: No Hx Substance Use: No Review of Systems Review of Systems: The patient denies palpitations, shortness of breath, dyspnea on exertion, cough, lower extremity swelling, sore throat, fevers, chills, sweats, weight change, fatigue, nausea, vomiting, diarrhea , constipation, abdominal pain, pelvic pain, blood in urine or stool, dysuria, urinary frequency or urgency, lightheadedness, dizziness, headache, memory loss, loss of consciousness, rash, abnormal bruising or bleeding, imbalance, focal or generalized weakness, numbness or tingling in arms or legs, generalized arthralgias or myalgias, neck pain, or night sweats. The review of systems is otherwise negative other than for that already noted above, and at least 10 systems have been reviewed. Physical Exam Physical Exam: The patient is awake, alert and oriented 3, well developed and well nourished, normocephalic and atraumatic, lying in bed and in no acute distress. HEENT--PERRL, EOMI, mucous membranes and oropharynx dry. Neck--supple. No JVD. No bruits. Thyroid normal, trachea midline, no adenopathy. Heart--normal S1 and S2. No murmurs, rubs or gallops. Lungs--clear bilaterally, no respiratory distress, no accessory muscle use. Abdomen--normal bowel sounds and soft. Nontender. Nondistended, no hernias or masses, no organomegaly. Extremities--no cyanosis or clubbing. No edema. There are good distal pulses b/l. Dermatologic--normal skin turgor, normal color, no abnormal lymph nodes, no rash. Neurologic--cranial nerves II through XII grossly intact. Rheumatologic--normal range of motion. Psychiatric--normal affect. Results & Data Vital Signs (Past 12 Hours) Vital Signs Temp Pulse Pulse Resp BP BP Pulse Ox 03/14/19 02:08 62 16 201/92 H 98 03/14/19 01:22 63 18 181/93 H 98 03/14/19 00:44 54 L 18 201/87 H 96 03/14/19 00:19 60 18 199/101 H 97 03/13/19 23:53 63 18 206/93 H 98 03/13/19 23:37 98 03/13/19 23:09 98 03/13/19 22:46 97.9 F 59 L 16 223/103 H 99 Laboratory Results Laboratory Results WBC 9.08 K/uL (4.8-10.8) 03/14/19 03:15 RBC 4.59 M/uL (4.7-6.1) L 03/14/19 03:15 Hgb 14.7 g/dL (14.0-18.0) 03/14/19 03:15 POC Hgb 13.6 g/dl (14.0-18.0) L 03/13/19 23:32 Hct 41.3 % (42-52) L 03/14/19 03:15 POC Hct 40 % (42-52) L 03/13/19 23:32 MCV 90.0 fL (80-100) 03/14/19 03:15 MCH 32.0 pg (25-34) 03/14/19 03:15 MCHC 35.6 g/dL (32-36) 03/14/19 03:15 RDW Std Deviation 38.7 fL (36.4-46.3) 03/14/19 03:15 RDW Coeff of Caitlin 11.9 % (11.5-14.5) 03/14/19 03:15 Plt Count 156 K/uL (130-400) 03/14/19 03:15 MPV 9.8 fL (7.4-10.4) 03/14/19 03:15 Immature Gran % (Auto) 0.2 % 03/14/19 03:15 Neut % (Auto) 67.1 % 03/14/19 03:15 Lymph % (Auto) 25.0 % 03/14/19 03:15 Gaston % (Auto) 5.8 % 03/14/19 03:15 Eos % (Auto) 1.7 % 03/14/19 03:15 Baso % (Auto) 0.2 % 03/14/19 03:15 Immature Gran # (Auto) 0.02 K/uL (0.00-0.02) 03/14/19 03:15 Neut # (Auto) 6.09 K/uL (1.4-6.5) 03/14/19 03:15 Lymph # (Auto) 2.27 K/uL (1.2-3.4) 03/14/19 03:15 Gaston # (Auto) 0.53 K/uL (0.11-0.59) 03/14/19 03:15 Eos # (Auto) 0.15 K/uL (0-0.5) 03/14/19 03:15 Baso # (Auto) 0.02 K/uL (0-0.2) 03/14/19 03:15 PT 9.8 Seconds (9.0-12.0) 03/14/19 03:15 INR 1.0 (0.9-1.1) 03/14/19 03:15 APTT 25.5 Seconds (21.0-31.0) 03/14/19 03:15 PTT Ratio 0.9 03/14/19 03:15 POC Sodium 142 mEq/L (135-144) 03/13/19 23:32 Sodium 138 mmol/L (136-145) 03/14/19 03:15 POC Potassium 3.6 mEq/L (3.3-5.0) 03/13/19 23:32 Potassium 4.0 mmol/L (3.5-5.1) 03/14/19 03:15 POC Chloride 105 mEq/L (101-112) 03/13/19 23:32 Chloride 107 mmol/L (98-107) 03/14/19 03:15 Carbon Dioxide 29 mmol/L (21-32) 03/14/19 03:15 POC Total CO2 24 mEq/l (24-31) 03/13/19 23:32 Anion Gap 2.0 (3-11) L 03/14/19 03:15 POC Anion Gap 18.0 mmol/L (16-25) 03/13/19 23:32 POC BUN 15 mg/dl (7-18) 03/13/19 23:32 BUN 14 mg/dl (7-18) 03/14/19 03:15 Creatinine 0.90 mg/dl (0.6-1.4) 03/14/19 03:15 POC Creatinine 0.8 mg/dl (0.6-1.3) 03/13/19 23:32 Est Cr Clr Drug Dosing 94.3 ml/min 03/14/19 03:15 Est GFR ( Amer) 100.6 03/14/19 03:15 Est GFR (Non-Af Amer) 86.8 03/14/19 03:15 BUN/Creatinine Ratio 15.9 (10-20) 03/14/19 03:15 Glucose 106 mg/dl (70-99) H 03/14/19 03:15 POC Glucose (other) 131 mg/dl (70-99) H 03/13/19 23:32 Calcium 8.8 mg/dl (8.5-10.1) 03/14/19 03:15 POC Ioniz Calcium Reynaldo 1.18 mmol/l (1.12-1.32) 03/13/19 23:32 Total Bilirubin 0.3 mg/dl (0.2-1) 03/14/19 03:15 AST 22 U/L (15-37) 03/14/19 03:15 ALT 40 U/L (12-78) 03/14/19 03:15 Alkaline Phosphatase 116 U/L (45-117) 03/14/19 03:15 POC Troponin I < 0.03 ng/ml (0-0.045) 03/13/19 23:21 Troponin I 0.318 ng/ml (0-0.045) H* 03/14/19 03:15 Total Protein 7.1 gm/dl (6.4-8.2) 03/14/19 03:15 Albumin 3.5 gm/dl (3.4-5.0) 03/14/19 03:15 Globulin 3.6 gm/dl (2.5-4.0) 03/14/19 03:15 Albumin/Globulin Ratio 1.0 (0.9-2) 03/14/19 03:15 Lipase 133 U/L (73-393) 03/13/19 23:21 Diagnostic Findings [facility] Patient: CLEMENTE KNIGHT I (Male) Age: 69 MR #: [id number] Status: ER Date: 03/14/19 00:02 Slices: [id number] History: PAIN AT CENTER OF CHEST THAT GOES INTO BACK AND BETWEEN SHOULDER BLADES, H/O PE'S AND BYPASS R/O DISSECTION Priors: Tech: Olman Maddox @ [phone] Exams: CTA CHEST Contrast: IV Amt: 117 ML OPTIRAY 320 Accession Numbers: [id number] Preliminary Findings Only See Final Report For Complete Findings CTA CHEST: 11/08/2016. Without and with contrast. No PE. No aortic dissection or aneurysm Sternotomy, CABG, Coronary calcifications. Lungs clear. Radiologist: Nneka Goodrich M.D. Study ready at 00:07 and initial results transmitted at 00:53 *This report constitutes a preliminary interpretation only. Non-acute findings felt to be unrelated to the clinical presentation may not be discussed in this report. The study will be interpreted and a final report will be generated by the local Radiologist the following shift. To reach the hospital radiology department call [phone]. If a discrepancy is found between the preliminary and final interpretations of this study, please notify us via our Client Portal at [email or web address], under QA Exams. You can also fax this report with a description of the discrepancy, or include the final report, to our daytime fax number [phone]. If faxing, please indicate the severity of discrepancy using one of the following categories: [ ] 1 - Agree/Informational [ ] 2 - Unlikely to Affect Management [ ] 3 - Possible Eventual Change of Management [ ] 4 - Probable Immediate Change of Management For all other patient related information, please fax us at [phone]. Code Status & VTE Plan Code Status Full code VTE Prophylaxis Plan VTE Prophylaxis will be ordered: Yes PG Care Time/CCT Total # of Minutes Spent Total Time Spent with Patient: Total time spent is greater than 50% in coordination of care (as documented) at patient's floor/unit and/or counseling patient:
[2019-03-14] MEDS ORDERED: MAGNESIUM HYDROXIDE SUSP 30 ML UDC PO PRN (03:08)
[2019-03-14] MEDS ORDERED: ACETAMINOPHEN 325 MG TAB PO PRN (03:08)
[2019-03-14] MEDS ORDERED: POLYETHYLENE (MIRALAX) 17 GM PACK PO PRN (03:08)
[2019-03-14] MEDS ORDERED: ONDANSETRON INJ 2 MG/ML 2 ML VIAL IV PRN (03:08)
[2019-03-14] MEDS ORDERED: ALUMINUM/MAGNESIUM SUSP 30 ML UDC PO PRN (03:08)
[2019-03-14] MEDS ORDERED: DICLOFENAC SOD 1% GEL 100 GM TUBE EXT PRN (03:08)
[2019-03-14] MEDS ORDERED: NITROGLYCERIN SL 0.4 MG/TAB TAB SL PRN (03:08)
[2019-03-14] MEDS ORDERED: ACETAMINOPHEN 1000 MG/100 ML IV IV PRN (03:08)
[2019-03-14 03:26] LABS: Basophils # (auto) 0.02 K/uL (0-0.2); Basophils % (auto) 0.2 %; Eosinophils # (auto) 0.15 K/uL (0-0.5); Eosinophils % (auto) 1.7 %; Hematocrit (blood only) 41.3 % (42-52); Hemoglobin 14.7 g/dL (14.0-18.0); Immature Granulocytes # (auto) 0.02 K/uL (0.00-0.02); Immature Granulocytes % (auto) 0.2 %; Lymphocytes # (auto) 2.27 K/uL (1.2-3.4); Mean Corpuscular Hgb Conc 35.6 g/dL (32-36); Mean Platelet Volume 9.8 fL (7.4-10.4); Monocytes # (auto) 0.53 K/uL (0.11-0.59); Monocytes % (auto) 5.8 %; Neutrophils # (auto) 6.09 K/uL (1.4-6.5); Neutrophils % (auto) 67.1 %; Platelet Count 156 K/uL (130-400); RDW Coefficient of Variation 11.9 % (11.5-14.5); RDW Standard Deviation 38.7 fL (36.4-46.3); Red Blood Count 4.59 M/uL (4.7-6.1); White Blood Count 9.08 K/uL (4.8-10.8)
[2019-03-14 03:43] LABS: Albumin Level 3.5 gm/dl (3.4-5.0); BUN Creatinine Ratio 15.9 (10-20); Calcium 8.8 mg/dl (8.5-10.1); Creatinine Clr Calc Pharmacy 94.3 ml/min; Est GFR (African American) 100.6; Est GFR (Non-African American) 86.8; Partial Thromboplastin Ratio 0.9; Partial Thromboplastin Time 25.5 Seconds (21.0-31.0); Prothrombin Time 9.8 Seconds (9.0-12.0)
[2019-03-14 03:46] LABS: Bilirubin,Total 0.3 mg/dl (0.2-1); Globulin 3.6 gm/dl (2.5-4.0); Total Protein 7.1 gm/dl (6.4-8.2)
--- NOTE | 2019-03-14 06:40 | XRay Report ---
XR chest 1V portable CLINICAL HISTORY: Atypical chest pain COMPARISON STUDY: 11/08/2016 FINDINGS: The heart remains enlarged. There are postsurgical changes of a midline sternotomy. There i s no failure. There is no focal pulmonary consolidation. There are no pleural effusions.[ IMPRESSION: No active disease in the chest. Electronically signed by: Óscar Posadas M.D. 03/14/2019 6:38 AM
--- NOTE | 2019-03-14 07:09 | CT Scan Report ---
CT ANGIOGRAPHY OF THE CHEST WITHOUT AND WITH CONTRAST CLINICAL HISTORY: Chest pain rating to the back. Possible aortic dissection COMPARISON STUDY: CT scan performed July 29, 2017 TECHNIQUE: Unenhanced images were initially obtained through the thorax. The patient was then scanned during the IV administration of 117 mL of Optiray-320, CT of the thorax was performed from the thora cic inlet to the lung bases. Images are reviewed in the axial, sagittal, and coronal planes. IV contr ast was administered without complication. MIP images were acquired. A dose lowering technique was u tilized adhering to the principles of ALARA. CT DOSE: FINDINGS: Thyroid: There are subcentimeter thyroid nodules. Thoracic aorta: Noncontrast images reveal no evidence of aortic hematoma. Postcontrast images reveal no evidence of thoracic aortic aneurysm or dissection. The ascending thoracic aorta measures 36 mm. Pulmonary vasculature: There are right lower lobe pulmonary filling defects indicative of acute pulmo nary embolism. HEART: There are coronary artery calcifications present. Lungs and pleural spaces: There is no focal pulmonary consolidation. There are no pleural effusions. There is a stable 2 mm left apical pulmonary nodule. This appears calcified and is consistent with a granuloma. Mediastinum: There is no pathologic mediastinal adenopathy by size criteria. Jaky: There is no evidence of pathologic hilar lymphadenopathy Axilla: There is no evidence of pathologic axillary lymphadenopathy Upper abdomen: Partially visualized upper abdominal viscera is within normal limits. Skeletal structures: There are no lytic or blastic osseous lesions. IMPRESSION: 1. No evidence of thoracic aortic aneurysm or dissection 2. Acute right lower lobe pulmonary embolism. This finding will be called to the emergency room, as t his finding was not described on the pulmonary report. Electronically signed by: Óscar Posadas M.D. 03/14/2019 7:08 AM
[2019-03-14] MEDS ORDERED: AVODART~ORDER AWAITING ACTION SCH (08:00)
[2019-03-14] MEDS: TRAMADOL HCL 50 MG TABLET PO SCH ×2 (08:54→13:31)
[2019-03-14] MEDS ORDERED: METOPROLOL SUCC 50MG EXT REL TAB PO SCH (09:00)
[2019-03-14] MEDS ORDERED: ALFUZOSIN HCL 10 MG TAB PO SCH (09:00)
[2019-03-14] MEDS ORDERED: LISINOPRIL 20 MG TAB PO SCH (09:00)
[2019-03-14] MEDS ORDERED: PANTOprazole 40 MG TAB PO SCH (09:00)
[2019-03-14] MEDS ORDERED: ASPIRIN 81 MG ECTAB PO SCH (09:00)
--- NOTE | 2019-03-14 10:19 | Family Medicine Progress Note ---
Date of Service March 14, 2019 Assessment & Plan (1) Chest pain of uncertain etiology: Mr. 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 He was admitted to telemetry with serial cardiac enzymes, EKGs, cardiac monitoring and 2-D echocardiogram w/dopplers. - Continue metoprolol succinate 50 mg p.o. daily, lisinopril 20 mg every morning. - His blood pressure is still elevated, patient notes history of white coat hypertension, however, after discussion with Dr. Oseguera will order another Metoprolol succinate 25mg PO x1 dose. If still hypertensive at lunchtime/noon, will consider another dose of Lisinopril 10mg PO. - For now hold aspirin. - Symptoms and clinical picture is concerning for myocardial ischemic event. Discussion with Dr. Oseguera with possible need for cardiac cath intervention. - Will make NPO, except meds - Another trop has been ordered. His second trop was elevated at 0.318. (2) CAD (coronary artery disease): See above (3) S/P CABG x 3: See above (4) Hypertension: See above (5) History of PA (myocardial infarction): See above (6) Hyperlipidemia LDL goal <70: Continue simvastatin 80 mg p.o. at bedtime. Check a fasting lipid panel if not done recently. (7) DVT (deep venous thrombosis): Treated in the past. (8) Pulmonary embolism: Treated in the past, and CTA tonight negative for PE (9) BPH (benign prostatic hyperplasia): Continue dutasteride and alfuzosin. Monitor blood pressure closely if given nitroglycerin sublingual's due to possible interactive effect with alfuzosin in acutely lowering blood pressure (10) Osteoarthritis of left knee: discontinue stop ibuprofen. Trial of Voltaren gel 4 times daily as needed. Tramadol 100 mg p.o. 3 times daily PRN (11) Compression fracture of thoracic vertebrae, non-traumatic: as noted above. (12) GERD (gastroesophageal reflux disease): Continue omeprazole 20 mg PO daily Admitting physician noted that if cardiac work-up is negative, would consider consulting gastroenterology for possible EGD. Subjective Mr. Nye notes no pain since resolution of chest pain after taking ASA x2 FILL MANAGER. He notes that he feels back to his usual baseline. In addition to no chest pain, he notes no shortness of breath, nausea/vomiting/diarrhea, sweaty episodes (did have diaphoresis with presentation of pain at home), no abdominal pain. He notes previously history of stent x2 then needing CABG about 12 years ago. Physical Exam Constitutional: WD/WN, vitals as above cooperative Eyes: + anicteric sclerae and EOM intact bilaterally ENMT: external ear and nose normal, oropharynx normal Neck: normal visual inspection and trachea midline Respiratory: normal respiratory effort, lungs clear to auscultation Cardiovascular: Rate/Rhythm: regular rate and regular rhythm Extremities: no pedal edema Gastrointestinal (Abdomen): Inspection/Auscultation: normal bowel sounds Percussion/Palpation: abdomen soft; abdomen nontender, no guarding and abdomen not rigid Musculoskeletal: Head/Neck/Chest: normocephalic and head atraumatic Skin: no rashes, warm and dry Neurologic: moves all extremities and awake Psychiatric: A+Ox3, euthymic affect Results & Data Vital Signs (Past 12 Hours) Vital Signs Temp Pulse Pulse Resp BP BP Pulse Ox 03/14/19 08:30 56 L 03/14/19 08:24 37.2 C 68 22 190/85 H 96 03/14/19 03:40 62 18 188/65 H 99 03/14/19 03:09 36.4 C L 60 18 209/108 H 100 03/14/19 03:04 63 16 166/89 H 97 03/14/19 02:08 62 16 201/92 H 98 03/14/19 01:22 63 18 181/93 H 98 03/14/19 00:44 54 L 18 201/87 H 96 03/14/19 00:19 60 18 199/101 H 97 03/13/19 23:53 63 18 206/93 H 98 03/13/19 23:37 98 03/13/19 23:09 98 03/13/19 22:46 36.6 C 59 L 16 223/103 H 99 PG Care Time/CCT Total # of Minutes Spent Total Time Spent with Patient: Total time spent is greater than 50% in coordination of care (as documented) at patient's floor/unit and/or counseling patient: Resident Activity Tracking Resident Involvement: Resident Care Provided Care Provided: Adult Hospital Medicine
[2019-03-14] MEDS ORDERED: METOPROLOL SUCC 25MG EXT REL TAB PO ONE (10:45)
--- NOTE | 2019-03-14 13:37 | Cardiology Consultation ---
Date of Consultation March 14, 2019 Assessment & Plan (1) Elevated troponin: Suspect a minor elevation in troponin is related to right ventricular strain from his acute pulmonary embolism. Echocardiogram does note evidence of right ventricular pressure overload. No further cardiac evaluation necessary at this time. (2) Pulmonary embolism: Right lower lobe pulmonary embolism noted on his CT scan at time of presentation. This finding was not apparent at the time of his admission as a preliminary CT scan report said no PE." Case discussed with Dr. Mejia who plans to start anticoagulation. (3) CAD (coronary artery disease): History of an inferior ND and right coronary artery stents back in 1998. Three vessel bypass in November 2006. Continue medical management. (4) Hypertension: Echocardiogram notes mild left ventricular hypertrophy. Discussed increasing antihypertensive medications with Dr. Doyle. History of Present Illness Attending Physician: German Mejia, History of Present Illness Mr. Mijares is a 69-year-old male admitted last evening with a chest pain syndrome. This consultation was ordered as his 2nd troponin level was elevated. Patient was in his usual state of health until approximately 9 p.m. last evening. He had the acute onset of substernal chest discomfort which radiated to his scapular region and shoulders bilaterally. The patient also developed diaphoresis. His symptoms waxed and waned for approximately 1 hour. He did administer 2 full strength aspirin prior to leaving for the emergency room. On arrival here, the patient's significant elevated blood pressure was treated with intravenous hydralazine and sublingual nitroglycerin. His discomfort resolved. The patient is vigorous on a daily basis caring for 4 separate properties. He does not experience exertional angina pectoris or limiting dyspnea. He further denies syncope, presyncope, PND, orthopnea, palpitations, lower extremity edema, and claudication. The patient's cardiac history began back in 1998 when he suffered inferior myocardial infarction and had 2 stents placed in the RCA. In 2006 the patient developed unstable angina pectoris and eventually underwent a 3 vessel bypass at [facility] (SVG to the LAD, SVG to the LCx, and an SVG to the RCA). The patient has done well from a cardiac perspective since that time. The patient does carry history of a DVT and pulmonary embolism back in August 2016. He was treated with Eliquis for approximately 6-10 months. Currently, patient is resting comfortably in bed without complaints. Past medical and surgical history 1. Coronary artery disease-see above 2. CABG times 3-2006 3. Hypertension 4. Mild LVH 5. Diastolic dysfunction 6. Mild mitral regurgitation 7. Hypercholesterolemia 8. GERD 9. Hiatal hernia 10. BPH 11. T2 compression fracture 12. Chronic back pain 13. Colonic polyps 14. DJD 15. 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 Allergies Allergy/AdvReac Type Severity Reaction Status Date / Time Penicillins Allergy Unknown MD CASTLE Verified 03/14/19 01:50 WANTS MEFOXIN 12/20/04 Home Medications Home Medications Medication Instructions Recorded Confirmed Type alfuzosin 10 mg PO QPM 03/14/19 03/14/19 History aspirin 325 mg PO DAILY 03/14/19 03/14/19 History dutasteride 0.5 mg PO DAILY 03/14/19 03/14/19 History lisinopril 20 mg PO QAM 03/14/19 03/14/19 History metoprolol succinate 50 mg PO DAILY 03/14/19 03/14/19 History omeprazole 20 mg PO DAILY 03/14/19 03/14/19 History simvastatin 80 mg PO HS 03/14/19 03/14/19 History tramadol 100 mg PO TID 03/14/19 03/14/19 History Patient History Medical History Arthritis Dyslipidemia Gallbladder calculus with acute cholecystitis High blood pressure Vertigo Surgical History Hx of CABG Social History Preferred Language: Malawian Per Assessment Nurse Required: No Beliefs That Will Affect Care: None Current Living Situation: Spouse Other Information That Helps Us Care for You: No Feels Safe at Home: Yes Safety Concerns: Feels Safe At This Time Smoking Status: Former smoker Tobacco Type: cigarettes Do You Dip or Chew Tobacco: No Second Hand Exposure: Yes Tobacco Cessation Education Requested by Patient: No Hx Alcohol Use: No Hx Substance Use: No Physical Exam Physical Exam: In general this is a well-developed well-nourished white male in no acute distress. HEENT exam is negative. Neck is supple with full carotid upstrokes. There are no carotid bruits. Jugular venous pressure is flat at 90. There is no thyromegaly. Cardiovascular exam reveals a regular rhythm with a normal S1 and S2. No S3, S4, or murmurs are noted. Lungs are clear without rales, rhonchi, or wheezes. Abdomen is soft and nontender without bruits. Extremities reveal intact radial artery and posterior tibial pulses bilaterally. There is no peripheral edema. Results & Data Vital Signs (Past 12 Hours) Vital Signs Temp Pulse Pulse Resp BP BP BP 03/14/19 10:56 36.5 C 66 18 187/87 H 03/14/19 08:30 56 L 03/14/19 08:24 37.2 C 68 22 190/85 H 03/14/19 03:40 62 18 188/65 H 03/14/19 03:09 36.4 C L 60 18 209/108 H 03/14/19 03:04 63 16 166/89 H 03/14/19 02:08 62 16 201/92 H Pulse Ox 03/14/19 10:56 97 03/14/19 08:30 03/14/19 08:24 96 03/14/19 03:40 99 03/14/19 03:09 100 03/14/19 03:04 97 03/14/19 02:08 98 Laboratory Results CBC notes a hemoglobin of 14.7, hematocrit 41.3, white count 9.08, and platelet count [id number]. Electrolytes note a sodium 138, potassium 4.0, chloride 107, bicarb 29, BUN 14, and creatinine of 0.9. Initial troponin was normal at 0.027 with follow-up values of 0.381 and 0.286. LDL cholesterol is 106 with an HDL low at 30. Diagnostic Findings EKG notes normal sinus rhythm and an incomplete right bundle-branch block. There is lateral T-wave abnormality possibly consistent with LVH. Echocardiogram notes hyperdynamic left ventricular systolic function without wall motion abnormalities. There is flattening of the interventricular septum during systole consistent with right ventricular pressure overload. There is mild LVH, diastolic dysfunction, and mild mitral regurgitation. Chest x-ray shows no acute disease. Chest CT notes no evidence of an aortic dissection, but evidence of an acute pulmonary embolism in the right lower lobe.
--- NOTE | 2019-03-14 14:35 | Discharge Summary ---
Date of Service March 14, 2019 Admission HPI Per Admitting Provider The patient is a 69-year-old male with past medical history including CAD, status post CABG x3, history of ND, hypertension, DVT, PE, GERD, osteoarthritis in particular involving left knee, BPH and hyperlipidemia, who presents with the acute onset of chest pain radiating to his back between his shoulder blades beginning around 9 PM this evening. Patient reports he took 2 full-strength aspirin which helped his symptoms somewhat, and when he arrived in the ED he was given additional medication: Hydralazine IV and nitroglycerin sublingual's, and his pain is since gone. The pain initially had a waxing and waning process where it would reach a peak, and then improve. He was out in the sun a lot today, and did not keep up with his fluids, and appears somewhat dehydrated. He reports that he takes 9-12 ibuprofen daily for left knee pain, and has had more issues with reflux recently. He denies blood in urine or stool. He feels that the pain is similar to that in which he has had his ND in the past. Admission Exam Per Admitting Provider The patient is awake, alert and oriented 3, well developed and well nourished, normocephalic and atraumatic, lying in bed and in no acute distress. HEENT--PERRL, EOMI, mucous membranes and oropharynx dry. Neck--supple. No JVD. No bruits. Thyroid normal, trachea midline, no adenopathy. Heart--normal S1 and S2. No murmurs, rubs or gallops. Lungs--clear bilaterally, no respiratory distress, no accessory muscle use. Abdomen--normal bowel sounds and soft. Nontender. Nondistended, no hernias or masses, no organomegaly. Extremities--no cyanosis or clubbing. No edema. There are good distal pulses b/l. Dermatologic--normal skin turgor, normal color, no abnormal lymph nodes, no rash. Neurologic--cranial nerves II through XII grossly intact. Rheumatologic--normal range of motion. Psychiatric--normal affect. Principal Diagnosis Acute right lower lobe pulmonary embolism. Discharge Exam Constitutional WD/WN, vitals as above cooperative Eyes + anicteric sclerae and EOM intact bilaterally ENMT external ear and nose normal, oropharynx normal Neck normal visual inspection and trachea midline Respiratory normal respiratory effort, lungs clear to auscultation Cardiovascular Rate/Rhythm: regular rate and regular rhythm Extremities: no pedal edema Gastrointestinal (Abdomen) Inspection/Auscultation: normal bowel sounds Percussion/Palpation: abdomen soft; abdomen nontender, no guarding and abdomen not rigid Musculoskeletal Head/Neck/Chest: normocephalic and head atraumatic Skin no rashes, warm and dry Neurologic moves all extremities and awake Psychiatric A+Ox3, euthymic affect Discharge Data Allergies Allergy/AdvReac Type Severity Reaction Status Date / Time Penicillins Allergy Unknown MD CASTLE Verified 03/14/19 01:50 WANTS MEFOXIN 12/20/04 Consultations 03/14/19 01:08 ED Decision to Admit Stat 03/14/19 03:08 Consult Case Management - Discharge Planning Routine 03/14/19 08:27 Consult Cardiology Routine Procedures Performed Operation Date: 03/14/19 14:00 <No data on this case meets the specified criteria> Ordered Studies 03/13/19 22:56 CT angio chest dissec wo/w con Urgent IMPRESSION: 1. No evidence of thoracic aortic aneurysm or dissection 2. Acute right lower lobe pulmonary embolism. 03/14/19 Echocardiogram LV hyperdynamic No regional wall motion abnormalities Mild concentric LVH Flattened septum consistent with RV pressure overload EF >70% Mild mitral regurgitation. Hospital Course (1) Pulmonary embolism: Mr. 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 He was admitted to telemetry with serial cardiac enzymes, EKGs, cardiac monitoring and 2-D echocardiogram w/dopplers. He inititally had a negative read for PE, however formal read showed a new acute right lower lobe Pulmonary Embolism. Patient had been stable entire course of care since arriving to ED. He notes of being on Eliquis in the past finishing treatment for a previous PE. Since patient did well on Eliquis previously, will restart. We did give him 10mg dose here and will send in script to complete one week of 10mg BID, then 5mg daily, as he does not meet criteria for renal dosing. We did discuss with him red flags and warning signs of bleeding. Also, discussed to return if symptoms worsen. - Continued metoprolol succinate 50 mg p.o. daily, lisinopril 20 mg every morning. - For now hold aspirin. - Symptoms and clinical picture is concerning for myocardial ischemic event. Discussion with Dr. Oseguera with possible need for cardiac cath intervention, however this was aborted as diagnosis of PE. - Another trop has been ordered. His second trop was elevated at 0.318 mostly demand ischemia from PE strain on right ventricle. Repeat trop was WNL. (2) Chest pain of uncertain etiology: (3) CAD (coronary artery disease): See above (4) S/P CABG x 3: See above (5) Hypertension: His blood pressure was consistently elevated, patient notes history of white coat hypertension. Prior to diagnosis, his HTN was treated with home meds and an additional dose of Metoprolol succinate 25mg PO x1 dose. On discharge, okay to resume previous home meds. (6) History of ND (myocardial infarction): See above (7) Hyperlipidemia LDL goal <70: Continue simvastatin 80 mg p.o. at bedtime. (8) DVT (deep venous thrombosis): Treated in the past with Eliquis. (9) BPH (benign prostatic hyperplasia): Continue dutasteride and alfuzosin. (10) Osteoarthritis of left knee: while admitted we did discontinue ibuprofen, okay to resume on discharge Did a Trial of Voltaren gel 4 times daily as needed. Also, Tramadol 100 mg p.o. 3 times daily PRN (11) Compression fracture of thoracic vertebrae, non-traumatic: as noted above. (12) GERD (gastroesophageal reflux disease): Continue omeprazole 20 mg PO daily Total Time Total Time Spent Total Time Spent (In Minutes): <30 Total Time Includes: Examination of the Patient, Discharge Planning, Medication Reconciliation and Communication With Other Providers Discharge Plan Discharge Items Patient Disposition: Home - Self-Care Reason For Visit: CHEST PAIN Discharge Diagnosis: Acute right lower lobe Pulmonary Embolism Condition: Good Discharge Goals: Therapeutic intervention Activity: Resume your previous activity Non-emergency contact: Primary Care Provider Call non-emergency contact if: you have any medication questions, your symptoms worsen and your pain is concerning for you Follow-up/Referrals: Joaquín Dao III, MD [Primary Care Provider] - (Please call for next available appointment for hospital follow up.) Diet: Heart Healthy Addtl Provider Instructions: You were diagnosed with a pulmonary embolism in your right lung lower lobe. This will require treatment with Eliquis an anti-coagulant, which you have been on previously. You have received one dose here of 10mg. You will need to take 10mg of Eliquis, twice per day, 12 hours a part. It is okay to take tonight's dose even though it is not 12 hours from first dose. Then, you will want to be on a scheduled 12 hours apart for instance 7am/7pm or 10am/10pm. Please be aware that anti-coagulation can cause bleeding. If you notice dark stools or bright red blood in stools or are bleeding from rectum, call 911/seek medical evaluation/visit [facility] ED. Also, note that if you suffer any head trauma that you may have a brain bleed and should seek medical evaluation. Please only take Aspirin 81mg rather than 325mg. 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 Please call your Primary Care Provider for next available appointment. You will most likely require life long anti-coagulation since this is your second instance of a blood clot. Please take all other medications as previous directed. If you experience worsening shortness of breath or chest pain, please call 911/come to [facility] emergency department/seek medical evaluation. Prescriptions: New aspirin [Ecotrin Low Strength] 81 mg Tablet,Delayed Release (Dr/Ec) 81 mg PO QAM 30 Days Qty: 30 RF: 0 Eliquis 5 mg tablet 5 mg PO Q12H 30 Days Qty: 60 RF: 0 Eliquis 5 mg tablet 10 mg PO Q12H Qty: 27 RF: 0 Continued metoprolol succinate 50 mg tablet extended release 24 hr 50 mg PO DAILY RF: 0 tramadol 50 mg tablet 100 mg PO TID RF: 0 omeprazole 20 mg capsule,delayed release(DR/EC) 20 mg PO DAILY RF: 0 dutasteride 0.5 mg capsule 0.5 mg PO DAILY RF: 0 alfuzosin 10 mg tablet extended release 24 hr 10 mg PO QPM RF: 0 lisinopril 20 mg Tablet 20 mg PO QAM RF: 0 simvastatin 80 mg Tablet 80 mg PO HS RF: 0 Discontinued aspirin 325 mg Tablet 325 mg PO DAILY RF: 0 Stand-Alone Forms: Call Back Authorization, [facility]/Other Patient Handouts: Apixaban Oral tablet, Embolism Pulmonary Dc Discharge Orders: Discharge Order (Routine); Ordered 03/14/19 Ordered By: Praful Doyle Admission Data Admit Date/Time: 03/14/19 02:17 Attending Provider: German Mejia Admit Provider: Raymundo Diez Primary Care Provider: Joaquín Dao III Other Providers: Raymundo Diez ; Darwin Levin Service: Telemetry Other Interventions: Discharge Summary Assessment (RN) Last Done: 03/14/19 15:58 DC Date/Time DO NOT enter until pt leaves facility: 03/14/19 16:30 Supervising Physician Co-Signing Physician Notes I personally examined the patient and verified all joya points of history and exam, discussed case, and agree with decision making with Dr Doyle. feeling much better. discussed CT findings, all questions answered to the best of my ability. he had prior PE and was on eliquis so shows good understanding. wants to go home. PE risk score low. vitlas noted nad breathing unlabored no pallor or icterus no accessory muscles PE - elevated troponin in hindsight was right heart strain. echo reassuring. start eliquis. stable for home, outpt f/u. otherwise as above
[2019-03-14] MEDS ORDERED: APIXABAN 5 MG TABLET PO ONE (15:00)
[2019-03-14] MEDS ORDERED: SIMVASTATIN 80 MG TAB PO SCH (21:00)
== END 2019-03-14 16:30 | disposition home or self-care (01) ==
LOC: 2S 22:45 → ED 22:45 → SUATTDRO 03-14 02:17 → 2S 03-14 03:04

== ENCOUNTER 2020-12-08 09:50 | Observation (INO) ==
[2020-12-08] MEDS ORDERED: ASPIRIN CHEW 324 MG PO STA (10:13)
--- NOTE | 2020-12-08 10:43 | Electrocardiogram Report ---
Test Reason : Blood Pressure : / mmHG Vent. Rate : 071 BPM Atrial Rate : 071 BPM P-R Int : 156 ms QRS Dur : 092 ms QT Int : 398 ms P-R-T Axes : 039 000 098 degrees QTc Int : 432 ms Normal sinus rhythm Abnormal ECG When compared with ECG of 25-AUG-2019 10:38, No significant change was found Confirmed by Phi Banda ([id number]) on 12/08/2020 10:43:05 AM Referred By: Confirmed By:Phi Banda
[2020-12-08 10:52] LABS: Basophils # (auto) 0.01 K/uL (0-0.2); Basophils % (auto) 0.2 %; Eosinophils # (auto) 0.09 K/uL (0-0.5); Eosinophils % (auto) 1.6 %; Hematocrit (blood only) 29.9 % (42-52); Hemoglobin 9.3 g/dL (14.0-18.0); Immature Granulocytes # (auto) 0.01 K/uL (0.00-0.02); Immature Granulocytes % (auto) 0.2 %; Lymphocytes # (auto) 1.01 K/uL (1.2-3.4); Lymphocytes % (auto) 18.3 %; Mean Corpuscular Hgb Conc 31.1 g/dL (32-36); Mean Platelet Volume 9.6 fL (7.4-10.4); Monocytes # (auto) 0.46 K/uL (0.11-0.59); Monocytes % (auto) 8.3 %; Neutrophils # (auto) 3.95 K/uL (1.4-6.5); Neutrophils % (auto) 71.4 %; Platelet Count 159 K/uL (130-400); RDW Coefficient of Variation 14.7 % (11.5-14.5); RDW Standard Deviation 39.7 fL (36.4-46.3); Red Blood Count 4.04 M/uL (4.7-6.1); White Blood Count 5.53 K/uL (4.8-10.8)
--- NOTE | 2020-12-08 11:03 | XRay Report ---
XR chest 2V PA/lateral CLINICAL HISTORY: Atypical chest pain COMPARISON STUDY: 08/25/2019 FINDINGS: The heart is mildly enlarged. There are postsurgical changes of midline sternotomy. There i s aortic tortuosity/ectasia. There is no failure. There is no focal pulmonary consolidation. No pleur al effusions are visualized. Degenerative changes are present within the dorsal spine. There is a fra ctured sternal suture.[ IMPRESSION: No active disease in the chest. ACT 112: Negative or not required by law. Electronically signed by: Óscar Posadas M.D. 12/08/2020 11:01 AM
[2020-12-08 11:09] LABS: Ovalocytes 1+
[2020-12-08 11:15] LABS: BUN Creatinine Ratio 18.7 (10-20); Blood Urea Nitrogen 19 mg/dl (7-18); Calcium 8.7 mg/dl (8.5-10.1); Carbon Dioxide 23 mmol/L (21-32); Chloride 109 mmol/L (98-107); Creatinine Clr Calc Pharmacy 85.1 ml/min; Est GFR (African American) 84.9; Est GFR (Non-African American) 73.3; Glucose 128 mg/dl (70-99); Lipase 242 U/L (73-393); Potassium 4.1 mmol/L (3.5-5.1); Sodium 136 mmol/L (136-145)
[2020-12-08 11:20] LABS: Troponin I < 0.015 ng/ml (0-0.045)
--- NOTE | 2020-12-08 13:17 | Emergency Department Note ---
History of Present Illness General Chief Complaint: Chest Pain Stated Complaint: CHEST PAIN, SOB Time Seen by Provider: 12/08/20 10:02 History of Present Illness Provider Complaint: chest pain Onset (ago): day(s) 1 Duration: intermittent Onset: during exertion Pain Location: substernal Pain Radiation: back Severity: moderate Maximum Pain Intensity: 3 Current Pain Intensity: 3 Quality: + tightness Relieved By: + rest Exacerbated By: + exertion Context: + history of DVT/PE (On Eliquis has not missed any doses); no recent illness, no recent surgery, no recent travel and no trauma/injury Associated symptoms: + dyspnea; no vomiting, no diaphoresis, no syncope, no palpitations, no fever, no cough and no leg swelling Home Medications Medication Instructions Recorded Confirmed Type aspirin 81 mg PO QAM 08/25/19 12/08/20 History simvastatin 80 mg tablet 80 mg PO HS #90 tab 04/04/20 12/08/20 Rx apixaban 5 mg tablet 5 mg PO Q12H #180 tab 10/07/20 12/08/20 Rx lisinopril 30 mg tablet 30 mg PO DAILY #90 tab 11/15/20 12/08/20 Rx sertraline 25 mg tablet 25 mg PO DAILY #90 tab 11/15/20 12/08/20 Rx tramadol 50 mg tablet 100 mg PO TID #180 tab 12/03/20 12/08/20 Rx sodium sulf 1.479 gram-potas See Rx Instructions PO .COMPLEX 12/04/20 Rx chloride 0.188 gram-magnesium sulf #24 tab tablet alfuzosin [Uroxatral] 10 mg PO HS 12/08/20 12/08/20 History dutasteride [Avodart] 0.5 mg PO HS 12/08/20 12/08/20 History metoprolol succinate [Toprol XL] 50 mg PO QAM 12/08/20 12/08/20 History omega 6-qoh-lgv-fish oil [Fish Oil] 1 cap PO BID 12/08/20 12/08/20 History omeprazole 20 mg PO QAM 12/08/20 12/08/20 History polysaccharide iron complex 150 mg PO HS 12/08/20 12/08/20 History [Ferrex 150] Allergies Allergy/AdvReac Type Severity Reaction Status Date / Time Penicillins Allergy Unknown MD MISHOCK Verified 12/08/20 10:39 WANTS MEFOXIN 12/20/04 Past Med/Surg History Medical History Arthritis BPH with obstruction/lower urinary tract symptoms BPH without obstruction/lower urinary tract symptoms CAD (coronary artery disease) CAD, multiple vessel Compression fracture of thoracic vertebrae, non-traumatic DVT (deep venous thrombosis) (~08/2016) Dyslipidemia Elevated PSA Gallbladder calculus with acute cholecystitis GERD (gastroesophageal reflux disease) High blood pressure History of [place] (myocardial infarction) (~1998) History of venous thromboembolism Hypercholesterolemia Hyperlipidemia Hyperlipidemia LDL goal <70 Hypertension Lateral epicondylitis Pulmonary emboli Pulmonary embolism (~03/13/19) Thrombocytopenia Vertigo Surgical History History of appendectomy History of arthroscopy of knee History of colonoscopy (02/01/18) tubular adenoma, repeat in 5 years History of laparoscopic cholecystectomy S/P CABG x 3 (~2006) Family History Unknown Hypertension Heart disease Prostate cancer Nephrolithiasis Colon cancer Grandfather Colon cancer Grandmother CHF (congestive heart failure) Leukemia Colon cancer Daughter Deep vein thrombosis Thyroid cancer Father Cardiomyopathy Myocardial infarction Sister Vertigo Uncle Deep vein thrombosis Denies family history of Breast cancer Lung cancer Social History Smoking Status: Former smoker Second Hand Exposure: Yes; Hx Alcohol Use: No Hx Substance Use: No Preferred Language: Sinhala 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: No Beliefs That Will Affect Care: None marital status: Current Living Situation: Spouse current occupational status: retired Feels Safe at Home: Yes Childhood Exposure to Second-Hand Smoke: No Dental Care, Regularly: Yes Physical Activity Frequency: Does not Exercise Seatbelt Use: always Sunscreen Use: Yes Assistive Devices: Glasses Review of Systems A total of 10 systems reviewed and were otherwise negative Physical Exam Vital Signs Vital Signs - 24 hr 12/08/20 09:55 12/08/20 10:13 12/08/20 11:50 Temperature 36.7 C Temperature Source Oral Pulse Rate 70 Pulse Rate [Apical] 62 Respiratory Rate 18 18 Blood Pressure 178/91 H Blood Pressure [Left Arm] 132/72 Blood Pressure Mean 120 Blood Pressure Mean [Left Arm] 92 Pulse Oximetry 99 99 97 Oxygen Delivery Method Room Air Room Air Room Air Sepsis Recent Fever Within 48 Hours No Sepsis New/Unexplained Change in Mental Status No Sepsis Action Taken by Nursing No Action Required 12/08/20 13:00 Temperature Temperature Source Pulse Rate Pulse Rate [Apical] 56 L Respiratory Rate Blood Pressure Blood Pressure [Left Arm] 177/85 H Blood Pressure Mean Blood Pressure Mean [Left Arm] 115 Pulse Oximetry 96 Oxygen Delivery Method Room Air Sepsis Recent Fever Within 48 Hours Sepsis New/Unexplained Change in Mental Status Sepsis Action Taken by Nursing Physical Exam GENERAL: He is oriented to person, place, and time. He appears well-developed and well-nourished. He does not appear distressed. HENT: Exam performed. - Head: Normocephalic and atraumatic. - Right Ear: External ear normal. No mastoid tenderness. - Left Ear: External ear normal. No mastoid tenderness. - Mouth/Throat: The oropharynx is clear and moist. No trismus in the jaw. No dental abscesses or uvula swelling. No oropharyngeal exudate or tonsillar abscesses. EYES: Conjunctivae and EOM are normal. Pupils are equal, round, and reactive to light. Right eye exhibits no discharge. Left eye exhibits no discharge. No scleral icterus. NECK: Normal range of motion. Neck supple. No JVD present. No spinous process tenderness present. No carotid bruit present. No rigidity. No tracheal deviation and normal range of motion present. No Brudzinski's sign and no Kernig's sign noted. CV: Normal rate, regular rhythm, normal heart sounds and intact distal pulses. There is no peripheral edema. Palpable radial pulses bue. PULM/CHEST: Effort normal and breath sounds normal. No respiratory distress. No stridor. He has no wheezes. He has no rales. - Chest Wall: He exhibits no tenderness. ABD: The abdomen is soft. Bowel sounds are normal. He has no distension. No mass is present. There is no tenderness. There is no rebound, no guarding, no Wheeler's sign and no tenderness at McBurney's point. Rovsig negative. MUSC/SKEL: Normal range of motion. There is no peripheral edema, tenderness or deformity. LYMPH: No cervical adenopathy. NEURO: He is alert and oriented to person, place, and time. He has normal strength. No cranial nerve deficit or sensory deficit. Coordination and gait normal. GCS eye subscore is 4. GCS verbal subscore is 5. GCS motor subscore is 6. Cerebellar tests wnl. SKIN: Skin is warm and dry. He is not diaphoretic. PSYCH: He has a normal mood and affect. Behavior is normal. Judgment and thought content normal. Course Course 1002: The patient was evaluated in room A12. A complete history and physical exam was performed Cardiac monitoring: An order was placed for continuous cardiac monitoring. The monitor shows a rate of 70 with sinus rhythm 1210: Vital signs stable. Labs and imaging within normal limits. Patient has a moderate heart score. Patient will be admitted to the [facility] hospitalist team for chest pain rule out ACS. Dr. [facility] hospitalist has been notified. Administered Medications Discontinued Medications Aspirin (Aspirin Chew 324 Mg) 324 mg PO NOW STA Stop: 12/08/20 10:14 Last Admin: 12/08/20 10:43 Dose: 324 mg Documented by: [id number] Medical Decision Making Laboratory Data Result diagrams: 12/08/20 10:10 12/08/20 10:10 Labs: Lab Results 12/08/20 12/08/20 12/08/20 Range/Units 10:10 10:10 12:36 WBC 5.53 (4.8-10.8) K/uL RBC 4.04 L (4.7-6.1) M/uL Hgb 9.3 L (14.0-18.0) g/dL Hct 29.9 L (42-52) % MCV 74.0 L (80-100) fL MCH 23.0 L (25-34) pg MCHC 31.1 L (32-36) g/dL RDW Std Deviation 39.7 (36.4-46.3) fL RDW Coeff of Caitlin 14.7 H (11.5-14.5) % Plt Count 159 (130-400) K/uL MPV 9.6 (7.4-10.4) fL Immature Gran % (Auto) 0.2 % Neut % (Auto) 71.4 % Lymph % (Auto) 18.3 % [place] % (Auto) 8.3 % Eos % (Auto) 1.6 % Baso % (Auto) 0.2 % Neut # (Auto) 3.95 (1.4-6.5) K/uL Lymph # (Auto) 1.01 L (1.2-3.4) K/uL [place] # (Auto) 0.46 (0.11-0.59) K/uL Eos # (Auto) 0.09 (0-0.5) K/uL Baso # (Auto) 0.01 (0-0.2) K/uL Immature Gran # (Auto) 0.01 (0.00-0.02) K/uL Ovalocytes 1+ Sodium 136 (136-145) mmol/L Potassium 4.1 (3.5-5.1) mmol/L Chloride 109 H (98-107) mmol/L Carbon Dioxide 23 (21-32) mmol/L Anion Gap 4.0 (3-11) BUN 19 H (7-18) mg/dl Creatinine 1.03 (0.6-1.4) mg/dl Est Cr Clr Drug Dosing 85.1 ml/min Est GFR ( Amer) 84.9 Est GFR (Non-Af Amer) 73.3 BUN/Creatinine Ratio 18.7 (10-20) Glucose 128 H (70-99) mg/dl Calcium 8.7 (8.5-10.1) mg/dl Troponin I < 0.015 (0-0.045) ng/ml Lipase 242 (73-393) U/L COVID-19 Eval [facility] SARS-CoV-2, RNA, NAAT (NEGATIVE) 12/08/20 Range/Units 12:36 WBC (4.8-10.8) K/uL RBC (4.7-6.1) M/uL Hgb (14.0-18.0) g/dL Hct (42-52) % MCV (80-100) fL MCH (25-34) pg MCHC (32-36) g/dL RDW Std Deviation (36.4-46.3) fL RDW Coeff of Caitlin (11.5-14.5) % Plt Count (130-400) K/uL MPV (7.4-10.4) fL Immature Gran % (Auto) % Neut % (Auto) % Lymph % (Auto) % [place] % (Auto) % Eos % (Auto) % Baso % (Auto) % Neut # (Auto) (1.4-6.5) K/uL Lymph # (Auto) (1.2-3.4) K/uL [place] # (Auto) (0.11-0.59) K/uL Eos # (Auto) (0-0.5) K/uL Baso # (Auto) (0-0.2) K/uL Immature Gran # (Auto) (0.00-0.02) K/uL Ovalocytes Sodium (136-145) mmol/L Potassium (3.5-5.1) mmol/L Chloride (98-107) mmol/L Carbon Dioxide (21-32) mmol/L Anion Gap (3-11) BUN (7-18) mg/dl Creatinine (0.6-1.4) mg/dl Est Cr Clr Drug Dosing ml/min Est GFR ( Amer) Est GFR (Non-Af Amer) BUN/Creatinine Ratio (10-20) Glucose (70-99) mg/dl Calcium (8.5-10.1) mg/dl Troponin I (0-0.045) ng/ml Lipase (73-393) U/L COVID-19 Eval Order SARS-CoV-2, RNA, NAAT NEGATIVE (NEGATIVE) Imaging Data Chest x-ray: Radiologist's impression: XR chest 2V PA/lateral CLINICAL HISTORY: Atypical chest pain COMPARISON STUDY: 08/25/2019 FINDINGS: The heart is mildly enlarged. There are postsurgical changes of midline sternotomy. There is aortic tortuosity/ectasia. There is no failure. There is no focal pulmonary consolidation. No pleural effusions are visualized. Degenerative changes are present within the dorsal spine. There is a fractured sternal suture.[ IMPRESSION: No active disease in the chest. ACT 112: Negative or not required by law. Electronically signed by: Óscar Posadas M.D. 12/08/2020 11:01 AM Dictated: 12/08/20 1100 Transcribed: 12/08/20 1100 ECG Data Indication: chest pain Rate (beats per minute): 71 Rhythm: normal sinus Findings: no ST depression, no ST elevation and no prolonged QT MDM Narrative Vital signs stable. Labs and imaging within normal limits. Patient has a moderate heart score. [facility] team for chest pain rule out ACS. Dr[facility] hospitalist has been notified. Impression & Plan Chest pain Discharge Plan Visit Data Chief Complaint: Chest Pain Stated Complaint: CHEST PAIN, SOB ED Provider: Jermaine Allen Discharge Problem: Chest pain Patient Disposition: Being Evaluated by Hospitalist Forms Stand Alone Forms: [facility] Prescriptions Prescriptions: No Action Eliquis 5 mg tablet 5 mg PO Q12H Qty: 180 RF: 3 lisinopril 30 mg tablet 30 mg PO DAILY Qty: 90 RF: 3 sertraline 25 mg tablet 25 mg PO DAILY Qty: 90 RF: 3 tramadol [Ultram] 50 mg tablet 100 mg PO TID Qty: 180 RF: 0 Sutab 1.479-0.188 gram tablet See Rx Instructions PO .COMPLEX Qty: 24 RF: 0 simvastatin [Zocor] 80 mg tablet 80 mg PO HS Qty: 90 RF: 3 aspirin 81 mg Tablet,Delayed Release (Dr/Ec) 81 mg PO QAM RF: 0 omega 3-qyq-opo-fish oil [Fish Oil] 1,200 (144-216) mg Capsule 1 cap PO BID RF: 0 metoprolol succinate [Toprol XL] 50 mg tablet extended release 24 hr 50 mg PO QAM RF: 0 polysaccharide iron complex [Ferrex 150] 150 mg iron capsule 150 mg PO HS RF: 0 omeprazole 20 mg capsule,delayed release(DR/EC) 20 mg PO QAM RF: 0 dutasteride [Avodart] 0.5 mg capsule 0.5 mg PO HS RF: 0 alfuzosin [Uroxatral] 10 mg tablet extended release 24 hr 10 mg PO HS RF: 0 Referrals Referrals: Joaquín Dao III, MD [Primary Care Provider] - Discharge Problem: Chest pain Qualifiers: Chest pain type: unspecified Qualified Code(s): R07.9 - Chest pain, unspecified
--- NOTE | 2020-12-08 13:18 | History & Physical Report ---
Date of Service December 08, 2020 Assessment & Plan (1) Acute coronary syndrome: Unstable angina vs. NSTEMI (pending serial troponins overnight). Convincing history in patient with known CAD and prior CABG. Likely somewhat exacerbated by current microscopic (iron def.) anemia but suspect worsening CAD in addition. Ideally would try to medically optimize patient although he is already significantly optimized that catheterization may be warranted but will defer decision to cardiology in AM. Currently will use nitroglycerin paste to avoid any further chest pain until seen by cardiology in AM Switch apixaban for low dose heparin with bolus when next dose is due in case patient requires cardiac catheterization. NPO after midnight ASA 324mg PO given in ER, continue 81mg PO daily Continue metoprolol succinate 50mg PO QAM TTE Consult cardiology (2) CAD, multiple vessel: As above (3) Anemia: Microscopic. Recently diagnosed and on iron supplementation for 1.5 months. Known FOB +ve and EGD and colonoscopy planned as outpatient on December 17 Appears to be getting worse. Will therefore repeat transferrin sats and ferritin with AM labs to assess possible benefit from IV iron prior to completing outpatient workup. (4) Hypertension: Continue his usual home medications with metoprolol succinate and lisinopril Add nitro paste 1inch 2% as above. (5) Hyperlipidemia LDL goal <70: Lipid panel in AM Continue simvastatin 80mg PO HS (6) GERD (gastroesophageal reflux disease): Switch omeprazole for pantoprazole as per hospital formulary (7) DVT prophylaxis: Start heparin IV low dose drip with bolus when next apixaban is due. Resta rt on apixaban at discharge. Admission and Anticipated Discharge Date Admission Date: December 08, 2020 History of Present Illness Chief Complaint: Chest pain, shortness of breath Primary Care Provider: Joaquín Dao MD Popeye Mijares is a 70 year old male with known CAD and prior CABGx3 who presents to the ER with chest pain. Chest pain has been progressing in frequency and intensity over the last month. Previously only on exertion up until this morning at 5am. He describes is a as a burning substernal pain, usually relieved with rest. This morning he had three episodes at rest over the course of one hour therefore decided to come to the ER ER. Associated diaphoresis and shortness of breath. He is currently chest pain free. He denies any orthopnea, PND, palpitations, presyncope or syncope. In addition he has been short of breath for many months but today much worse, can't get up 2 steps. 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 He took his usual apixaban this morning. His daughter notes a recent diagnosis of iron deficient anemia. He was started on iron tablets at the beginning of October. He reports bright red blood has been noted in his stool. Prior colonoscopy 2 years ago with polyp removed at that time. He is awaiting outpatient workup with EGD and colonoscopy planned for December 17. In the ER initial troponin negative, EKG unremarkable for acute ischemic changes. He was referred to medicine for admission and ongoing management of chest pain rule out ACS. Allergies Allergy/AdvReac Type Severity Reaction Status Date / Time Penicillins Allergy Unknown MD CASTLE Verified 12/08/20 10:39 WANTS MEFOXIN 12/20/04 Home Medications Medication Instructions Recorded Confirmed Type aspirin 81 mg PO QAM 08/25/19 12/08/20 History simvastatin 80 mg tablet 80 mg PO HS #90 tab 04/04/20 12/08/20 Rx apixaban 5 mg tablet 5 mg PO Q12H #180 tab 10/07/20 12/08/20 Rx lisinopril 30 mg tablet 30 mg PO DAILY #90 tab 11/15/20 12/08/20 Rx sertraline 25 mg tablet 25 mg PO DAILY #90 tab 11/15/20 12/08/20 Rx tramadol 50 mg tablet 100 mg PO TID #180 tab 12/03/20 12/08/20 Rx sodium sulf 1.479 gram-potas See Rx Instructions PO .COMPLEX 12/04/20 Rx chloride 0.188 gram-magnesium sulf #24 tab tablet alfuzosin [Uroxatral] 10 mg PO HS 12/08/20 12/08/20 History dutasteride [Avodart] 0.5 mg PO HS 12/08/20 12/08/20 History metoprolol succinate [Toprol XL] 50 mg PO QAM 12/08/20 12/08/20 History omega 9-kho-zrx-fish oil [Fish Oil] 1 cap PO BID 12/08/20 12/08/20 History omeprazole 20 mg PO QAM 12/08/20 12/08/20 History polysaccharide iron complex 150 mg PO HS 12/08/20 12/08/20 History [Ferrex 150] Past Med/Surg History Medical History Arthritis BPH with obstruction/lower urinary tract symptoms BPH without obstruction/lower urinary tract symptoms CAD (coronary artery disease) CAD, multiple vessel Compression fracture of thoracic vertebrae, non-traumatic DVT (deep venous thrombosis) (~08/2016) Dyslipidemia Elevated PSA Gallbladder calculus with acute cholecystitis GERD (gastroesophageal reflux disease) High blood pressure History of [place] (myocardial infarction) (~1998) History of venous thromboembolism Hypercholesterolemia Hyperlipidemia Hyperlipidemia LDL goal <70 Hypertension Lateral epicondylitis Pulmonary emboli Pulmonary embolism (~03/13/19) Thrombocytopenia Vertigo Surgical History History of appendectomy History of arthroscopy of knee History of colonoscopy (02/01/18) tubular adenoma, repeat in 5 years History of laparoscopic cholecystectomy S/P CABG x 3 (~2006) Family History Unknown Hypertension Heart disease Prostate cancer Nephrolithiasis Colon cancer Grandfather Colon cancer Grandmother CHF (congestive heart failure) Leukemia Colon cancer Daughter Deep vein thrombosis Thyroid cancer Father Cardiomyopathy Myocardial infarction Sister Vertigo Uncle Deep vein thrombosis Denies family history of Breast cancer Lung cancer Social History Smoking Status: Former smoker Second Hand Exposure: No; Do You Dip or Chew Tobacco: No; Tobacco Cessation Education Requested by Patient: No Hx Alcohol Use: No Hx Substance Use: No Preferred Language: Zimbabwean Communication Ability: Effective 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 Beliefs That Will Affect Care: None marital status: Current Living Situation: Spouse current occupational status: retired Other Information That Helps Us Care for You: No Feels Safe at Home: Yes Safety Concerns: Feels Safe At This Time Childhood Exposure to Second-Hand Smoke: No Dental Care, Regularly: Yes Physical Activity Frequency: Does not Exercise Seatbelt Use: always Sunscreen Use: Yes Assistive Devices: None Review of Systems Review of Systems: All systems reviewed & are unremarkable except as noted in HPI & below Physical Exam Constitutional: well developed and well nourished; no acute distress Eyes: + anicteric sclerae; normal pupil size ENMT: external ear and nose normal, oropharynx normal Neck: trachea midline Respiratory: normal respiratory effort, lungs clear to auscultation Cardiovascular: Rate/Rhythm: regular rate and regular rhythm Heart Sounds: no murmur Vessels: no JVD Extremities: normal capillary refill and + pedal edema (trace b/l ankles); no calf tenderness Gastrointestinal (Abdomen): normal bowel sounds, soft, nontender, no hepatosplenomegaly Musculoskeletal: no cyanosis or clubbing, extremities motor strength 5/5 Skin: no rashes, warm and dry Neurologic: moves all extremities and awake; not confused Psychiatric: A+Ox3, euthymic affect Results & Data Results & Data ([facility]) Vital Signs (Past 12 Hours) Vital Signs Temp Pulse Pulse Resp BP BP Pulse Ox 12/08/20 13:00 56 L 177/85 H 96 12/08/20 11:50 62 18 132/72 97 12/08/20 10:13 99 12/08/20 09:55 36.7 C 70 18 178/91 H 99 Diagnostic Findings XR chest 2V PA/lateral IMPRESSION: No active disease in the chest. Medications Administered ER Medications Given: Aspirin 324mg PO ECG Indication: chest pain Rate (beats per minute): 71 Rhythm: normal sinus Findings: no acute ischemic change Comparison ECG Date: from (Aug 25, 2019) Change: no significant change Code Status & VTE Plan Code Status Full VTE Prophylaxis Plan VTE Prophylaxis will be ordered: Yes PG Care Time/CCT Total # of Minutes Spent Total Time Spent with Patient: Total time spent is greater than 50% in coordination of care (as documented) at patient's floor/unit and/or counseling patient: Coding Level of Care Code 72463 OBS Care - Level 3 Diagnoses Acute coronary syndrome I24.9 CAD, multiple vessel I25.10 Anemia D50.0 Anemia type: iron deficiency Iron deficiency anemia type: chronic blood loss Hypertension I10 Hyperlipidemia LDL goal <70 E78.5 GERD (gastroesophageal reflux disease) K21.9 DVT prophylaxis Z29.9 (1) Anemia Anemia type: iron deficiency Iron deficiency anemia type: chronic blood loss Qualified Code(s): D50.0 - Iron deficiency anemia secondary to blood loss (chronic)
[2020-12-08] MEDS: NITROGLYCERIN 2% OINTMENT 30GM TUBE EXT SCH ×2 (14:27→19:40)
--- NOTE | 2020-12-08 15:12 | Ultrasound Report ---
US venous doppler LE LT CLINICAL HISTORY: Left lower extremity swelling COMPARISON STUDY: 05/01/2018 FINDINGS: Real-time and color flow Doppler imaging were performed. Flow was seen within the femoral, popliteal and calf veins with no intraluminal thrombus demonstrated. The saphenous vein is patent. IMPRESSION: No evidence of left lower extremity DVT. ACT 112: Negative or not required by law. Electronically signed by: Óscar Posadas M.D. 12/08/2020 3:11 PM
[2020-12-08] MEDS ORDERED: NITROGLYCERIN SL 0.4 MG/TAB TAB SL PRN (15:16)
[2020-12-08] MEDS ORDERED: traMADol HCL 50 MG TABLET PO STA (18:22)
[2020-12-08 18:43] LABS: Partial Thromboplastin Ratio 0.9; Partial Thromboplastin Time 22.6 Seconds (21.0-31.0); Prothrombin Time 9.9 Seconds (9.0-12.0)
[2020-12-08] MEDS: OMEGA-3 (PURIFIED FISH OIL) 1 GM CAP PO SCH (20:16)
[2020-12-08] MEDS ORDERED: FINASTERIDE 5 MG TAB PO SCH (21:00)
[2020-12-08] MEDS ORDERED: traMADol HCL 50 MG TABLET PO SCH (21:00)
[2020-12-08] MEDS ORDERED: SIMVASTATIN 80 MG TAB PO SCH (21:00)
[2020-12-08] MEDS ORDERED: IRON POLYSACCHARIDE COMPLEX 150 MG CAPSULE PO SCH (21:00)
[2020-12-08] MEDS ORDERED: ALFUZOSIN HCL 10 MG TAB PO SCH (21:00)
[2020-12-08] MEDS ORDERED: Heparin IV Adult Wt-Based Low-Dose WITH Bolus Protocol IV STA (21:17)
[2020-12-08] MEDS ORDERED: HEPARIN IV BOLUS 4,000 UNITS in SYRINGE 0 ML IV ONE (22:15)
[2020-12-08] MEDS: HEPARIN SODIUM/DEXTROSE 25,000 UNITS/500 ML BAG IV SCH (22:29)
[2020-12-09] MEDS: NITROGLYCERIN 2% OINTMENT 30GM TUBE EXT SCH ×3 (02:09→17:23)
[2020-12-09 04:48] LABS: Hematocrit (blood only) 27.8 % (42-52); Hemoglobin 8.6 g/dL (14.0-18.0); Mean Corpuscular Hemoglobin 22.9 pg (25-34); Mean Corpuscular Hgb Conc 30.9 g/dL (32-36); Mean Corpuscular Volume 73.9 fL (80-100); Mean Platelet Volume 9.4 fL (7.4-10.4); Platelet Count 147 K/uL (130-400); RDW Coefficient of Variation 14.6 % (11.5-14.5); RDW Standard Deviation 39.5 fL (36.4-46.3); Red Blood Count 3.76 M/uL (4.7-6.1); White Blood Count 8.09 K/uL (4.8-10.8)
[2020-12-09 04:59] LABS: Partial Thromboplastin Ratio 1.4
[2020-12-09] MEDS ORDERED: HEPARIN IV BOLUS 4,000 UNITS in SYRINGE 0 ML IV ONE (05:06)
[2020-12-09 05:07] LABS: BUN Creatinine Ratio 18.7 (10-20); Blood Urea Nitrogen 19 mg/dl (7-18); Calcium 8.1 mg/dl (8.5-10.1); Carbon Dioxide 25 mmol/L (21-32); Chloride 109 mmol/L (98-107); Est GFR (African American) 85.9; Est GFR (Non-African American) 74.1; Glucose 95 mg/dl (70-99); Sodium 140 mmol/L (136-145)
[2020-12-09] MEDS: HEPARIN SODIUM/DEXTROSE 25,000 UNITS/500 ML BAG IV SCH (05:11)
[2020-12-09 05:12] LABS: Chol HDL Ratio 4; Cholesterol 124 mg/dl (0-200); Ferritin 7.4 ng/ml (8-388); HDL Cholesterol 28 mg/dl; Iron 182 mcg/dl (35-175); LDL Cholesterol Calculated 65 mg/dl; Transferrin 301 mg/dl (200-360); Transferrin Percent Saturation 43 % (20-50); Triglycerides 153 mg/dl (0-150); Troponin I < 0.015 ng/ml (0-0.045); VLDL Cholesterol 31 mg/dl
[2020-12-09 07:27] LABS: Estimated Average Glucose 128 mg/dl; Hemoglobin A1C 6.1 % (4.5-5.6)
[2020-12-09] MEDS: OMEGA-3 (PURIFIED FISH OIL) 1 GM CAP PO SCH (07:28)
[2020-12-09] MEDS: traMADol HCL 50 MG TABLET PO SCH ×2 (08:42→17:23)
--- NOTE | 2020-12-09 08:46 | Hospitalist Progress Note ---
Date of Service December 09, 2020 Assessment & Plan Admission and Anticipated Discharge Date Admission Date: December 08, 2020 Results & Data Results & Data ([facility]) Vital Signs (Past 12 Hours) Vital Signs Temp Pulse Pulse Resp BP Pulse Ox 12/09/20 07:11 36.7 C 73 16 159/62 H 99 12/09/20 03:41 36.7 C 70 16 114/60 97 12/09/20 00:15 70 12/08/20 23:26 36.7 C 61 20 130/68 98 Laboratory Results 12/09/20 12/09/20 12/09/20 Range/Units 04:32 04:32 04:32 WBC 8.09 (4.8-10.8) K/uL RBC 3.76 L (4.7-6.1) M/uL Hgb 8.6 L (14.0-18.0) g/dL Hct 27.8 L (42-52) % MCV 73.9 L (80-100) fL MCH 22.9 L (25-34) pg MCHC 30.9 L (32-36) g/dL RDW Std Deviation 39.5 (36.4-46.3) fL RDW Coeff of Caitlin 14.6 H (11.5-14.5) % Plt Count 147 (130-400) K/uL MPV 9.4 (7.4-10.4) fL Immature Gran % (Auto) % Neut % (Auto) % Lymph % (Auto) % Sutton % (Auto) % Eos % (Auto) % Baso % (Auto) % Neut # (Auto) (1.4-6.5) K/uL Lymph # (Auto) (1.2-3.4) K/uL Sutton # (Auto) (0.11-0.59) K/uL Eos # (Auto) (0-0.5) K/uL Baso # (Auto) (0-0.2) K/uL Immature Gran # (Auto) (0.00-0.02) K/uL Ovalocytes PT (9.0-12.0) Seconds INR (0.9-1.1) APTT 36.0 H (21.0-31.0) Seconds PTT Ratio 1.4 Sodium (136-145) mmol/L Potassium (3.5-5.1) mmol/L Chloride (98-107) mmol/L Carbon Dioxide (21-32) mmol/L Anion Gap (3-11) BUN (7-18) mg/dl Creatinine (0.6-1.4) mg/dl Est Cr Clr Drug Dosing ml/min Est GFR ( Amer) Est GFR (Non-Af Amer) BUN/Creatinine Ratio (10-20) Glucose (70-99) mg/dl Estimat Average Glucose 128 mg/dl Hemoglobin A1c 6.1 H (4.5-5.6) % Calcium (8.5-10.1) mg/dl Iron (35-175) mcg/dl Transferrin (200-360) mg/dl Transferrin % Sat (20-50) % Ferritin (8-388) ng/ml Troponin I (0-0.045) ng/ml Triglycerides (0-150) mg/dl Cholesterol (0-200) mg/dl LDL Cholesterol, Calc mg/dl VLDL Cholesterol, Calc mg/dl HDL Cholesterol mg/dl Cholesterol/HDL Ratio Lipase (73-393) U/L COVID-19 Eval Order SARS-CoV-2, RNA, NAAT (NEGATIVE) 12/09/20 12/08/20 12/08/20 Range/Units 04:32 18:17 18:17 WBC (4.8-10.8) K/uL RBC (4.7-6.1) M/uL Hgb (14.0-18.0) g/dL Hct (42-52) % MCV (80-100) fL MCH (25-34) pg MCHC (32-36) g/dL RDW Std Deviation (36.4-46.3) fL RDW Coeff of Caitlin (11.5-14.5) % Plt Count (130-400) K/uL MPV (7.4-10.4) fL Immature Gran % (Auto) % Neut % (Auto) % Lymph % (Auto) % Sutton % (Auto) % Eos % (Auto) % Baso % (Auto) % Neut # (Auto) (1.4-6.5) K/uL Lymph # (Auto) (1.2-3.4) K/uL Sutton # (Auto) (0.11-0.59) K/uL Eos # (Auto) (0-0.5) K/uL Baso # (Auto) (0-0.2) K/uL Immature Gran # (Auto) (0.00-0.02) K/uL Ovalocytes PT 9.9 (9.0-12.0) Seconds INR 1.0 (0.9-1.1) APTT 22.6 (21.0-31.0) Seconds PTT Ratio 0.9 Sodium 140 (136-145) mmol/L Potassium 4.0 (3.5-5.1) mmol/L Chloride 109 H (98-107) mmol/L Carbon Dioxide 25 (21-32) mmol/L Anion Gap 6.0 (3-11) BUN 19 H (7-18) mg/dl Creatinine 1.02 (0.6-1.4) mg/dl Est Cr Clr Drug Dosing 86.0 ml/min Est GFR ( Amer) 85.9 Est GFR (Non-Af Amer) 74.1 BUN/Creatinine Ratio 18.7 (10-20) Glucose 95 (70-99) mg/dl Estimat Average Glucose mg/dl Hemoglobin A1c (4.5-5.6) % Calcium 8.1 L (8.5-10.1) mg/dl Iron 182 H (35-175) mcg/dl Transferrin 301 (200-360) mg/dl Transferrin % Sat 43 (20-50) % Ferritin 7.4 L (8-388) ng/ml Troponin I < 0.015 < 0.015 (0-0.045) ng/ml Triglycerides 153 H (0-150) mg/dl Cholesterol 124 (0-200) mg/dl LDL Cholesterol, Calc 65 mg/dl VLDL Cholesterol, Calc 31 mg/dl HDL Cholesterol 28 mg/dl Cholesterol/HDL Ratio 4 Lipase (73-393) U/L COVID-19 Eval Order SARS-CoV-2, RNA, NAAT (NEGATIVE) 12/08/20 12/08/20 12/08/20 Range/Units 12:36 12:36 10:10 WBC (4.8-10.8) K/uL RBC (4.7-6.1) M/uL Hgb (14.0-18.0) g/dL Hct (42-52) % MCV (80-100) fL MCH (25-34) pg MCHC (32-36) g/dL RDW Std Deviation (36.4-46.3) fL RDW Coeff of Caitlin (11.5-14.5) % Plt Count (130-400) K/uL MPV (7.4-10.4) fL Immature Gran % (Auto) % Neut % (Auto) % Lymph % (Auto) % Sutton % (Auto) % Eos % (Auto) % Baso % (Auto) % Neut # (Auto) (1.4-6.5) K/uL Lymph # (Auto) (1.2-3.4) K/uL Sutton # (Auto) (0.11-0.59) K/uL Eos # (Auto) (0-0.5) K/uL Baso # (Auto) (0-0.2) K/uL Immature Gran # (Auto) (0.00-0.02) K/uL Ovalocytes PT (9.0-12.0) Seconds INR (0.9-1.1) APTT (21.0-31.0) Seconds PTT Ratio Sodium 136 (136-145) mmol/L Potassium 4.1 (3.5-5.1) mmol/L Chloride 109 H (98-107) mmol/L Carbon Dioxide 23 (21-32) mmol/L Anion Gap 4.0 (3-11) BUN 19 H (7-18) mg/dl Creatinine 1.03 (0.6-1.4) mg/dl Est Cr Clr Drug Dosing 85.1 ml/min Est GFR ( Amer) 84.9 Est GFR (Non-Af Amer) 73.3 BUN/Creatinine Ratio 18.7 (10-20) Glucose 128 H (70-99) mg/dl Estimat Average Glucose mg/dl Hemoglobin A1c (4.5-5.6) % Calcium 8.7 (8.5-10.1) mg/dl Iron (35-175) mcg/dl Transferrin (200-360) mg/dl Transferrin % Sat (20-50) % Ferritin (8-388) ng/ml Troponin I < 0.015 (0-0.045) ng/ml Triglycerides (0-150) mg/dl Cholesterol (0-200) mg/dl LDL Cholesterol, Calc mg/dl VLDL Cholesterol, Calc mg/dl HDL Cholesterol mg/dl Cholesterol/HDL Ratio Lipase 242 (73-393) U/L COVID-19 Eval [email or web address], RNA, NAAT NEGATIVE (NEGATIVE) 12/08/20 Range/Units 10:10 WBC 5.53 (4.8-10.8) K/uL RBC 4.04 L (4.7-6.1) M/uL Hgb 9.3 L (14.0-18.0) g/dL Hct 29.9 L (42-52) % MCV 74.0 L (80-100) fL MCH 23.0 L (25-34) pg MCHC 31.1 L (32-36) g/dL RDW Std Deviation 39.7 (36.4-46.3) fL RDW Coeff of Caitlin 14.7 H (11.5-14.5) % Plt Count 159 (130-400) K/uL MPV 9.6 (7.4-10.4) fL Immature Gran % (Auto) 0.2 % Neut % (Auto) 71.4 % Lymph % (Auto) 18.3 % Sutton % (Auto) 8.3 % Eos % (Auto) 1.6 % Baso % (Auto) 0.2 % Neut # (Auto) 3.95 (1.4-6.5) K/uL Lymph # (Auto) 1.01 L (1.2-3.4) K/uL Sutton # (Auto) 0.46 (0.11-0.59) K/uL Eos # (Auto) 0.09 (0-0.5) K/uL Baso # (Auto) 0.01 (0-0.2) K/uL Immature Gran # (Auto) 0.01 (0.00-0.02) K/uL Ovalocytes 1+ PT (9.0-12.0) Seconds INR (0.9-1.1) APTT (21.0-31.0) Seconds PTT Ratio Sodium (136-145) mmol/L Potassium (3.5-5.1) mmol/L Chloride (98-107) mmol/L Carbon Dioxide (21-32) mmol/L Anion Gap (3-11) BUN (7-18) mg/dl Creatinine (0.6-1.4) mg/dl Est Cr Clr Drug Dosing ml/min Est GFR ( Amer) Est GFR (Non-Af Amer) BUN/Creatinine Ratio (10-20) Glucose (70-99) mg/dl Estimat Average Glucose mg/dl Hemoglobin A1c (4.5-5.6) % Calcium (8.5-10.1) mg/dl Iron (35-175) mcg/dl Transferrin (200-360) mg/dl Transferrin % Sat (20-50) % Ferritin (8-388) ng/ml Troponin I (0-0.045) ng/ml Triglycerides (0-150) mg/dl Cholesterol (0-200) mg/dl LDL Cholesterol, Calc mg/dl VLDL Cholesterol, Calc mg/dl HDL Cholesterol mg/dl Cholesterol/HDL Ratio Lipase (73-393) U/L COVID-19 Eval Order SARS-CoV-2, RNA, NAAT (NEGATIVE) PG Care Time/CCT Total # of Minutes Spent Total Time Spent with Patient: Total time spent is greater than 50% in coordination of care (as documented) at patient's floor/unit and/or counseling patient: Coding
[2020-12-09] MEDS ORDERED: PANTOprazole 40 MG TAB PO SCH (09:00)
[2020-12-09] MEDS ORDERED: SERTRALINE HCL 50 MG TABLET PO SCH (09:00)
[2020-12-09] MEDS ORDERED: ASPIRIN 81 MG ECTAB PO SCH (09:00)
[2020-12-09] MEDS ORDERED: lisinopril 10 MG TAB PO SCH (09:00)
[2020-12-09] MEDS ORDERED: METOPROLOL SUCC 50MG EXT REL TAB PO SCH (09:00)
--- NOTE | 2020-12-09 09:44 | Cardiology Consultation ---
Date of Consultation December 09, 2020 Assessment & Plan (1) Burning chest pain: Mr. Mijares is a 70 year old male with a history of Hypertension, Hypercholesterolemia, CAD s/p Inferior TX s/p RCA Stents x 2 in 1998, CABG x 3 Vessels 2006 (SVG to LAD, SVG to LCx, SVG to RCA), DVT, Pulmonary Embolism, Hiatal Hernia, GERD, BPH, and an Iron Deficiency Anemia with current Hgb of 8.6/g/dl -- who presented to [facility] on 12/08/20 complaining of progressive SOB/GARCIA x several months and more recently a burning chest discomfort. He describes getting short of breath when he walks to the mailbox or if he climbs a flight of stairs -- it plays him out. More recently, he has been experiencing a burning sensation in his lower chest mostly with exertion that is associated with dyspnea and "hot flashes". He became more concerned about his burning chest discomfort because on the morning of 12/08/20 -- he had 3 brief episodes over the course of an hour of burning in his lower chest that occurred at rest, uncertain how long each episode lasted, but each gradually dissipated. He did not try any nitroglycerin for it. This burning chest discomfort has not recurred since being admitted. This does not appear to be an ACS -- as his Troponin I is undetectable at < 0.015 ng/ml x 3, no dynamic EKG changes, and his burning chest pain does not radiate elsewhere as it did with his past angina pectoris. -- Suspect the majority of his symptoms are related to his iron deficiency anemia. -- Recommend transfusing patient and keep Hgb > 10.0 gm/dl. -- Consider getting Gastroenterology consult for EGD and Colonoscopy. (2) CAD, multiple vessel: -- CAD s/p CABG x 3 Vessels (SVG to LAD, SVG to LCx, SVG to RCA) 2006. -- Inferior TX 1998 s/p RCA stents x 2. -- Continue Aspirin 81mg daily. -- Continue Metoprolol Succinate ER 50 mg daily. -- Continue Lisinopril 30 mg daily. -- Continue Simvastatin 80 mg daily. -- Continue Fish Oil capsules b.i.d.. -- LDL is at target level at 65 mg/dl. -- Echocardiogram has been ordered. (3) Hypertension: Overall his BP appears to be controlled but he has had 2 hypertensive readings during this hospitalization. -- Continue Metoprolol Succinate ER 50 mg daily. -- Continue Lisinopril 30 mg daily. (4) Hyperlipidemia LDL goal <70: -- LDL is at target range at 65 mg/dl. -- Continue Simvastatin 80 mg daily. -- Continue Fish Oil capsules b.i.d.. (5) Pulmonary embolism: Patient also describes "a knot in the middle of my back" that occurred during this hospitalization with associated dyspnea and sweating -- similar to what he experienced with his previous pulmonary embolus. His left leg was swollen recently but "it's gotten much better" over the past couple of days. Lower E xtremity Ultrasound showed no evidence of a DVT. He is on Eliquis 5 mg b.i.d. chronically, and has not missed any doses. However, the DOAC's are not drugs of choice in certain hypercoagulable states. He has only been tested for Factor V Leiden mutation and prothrombin gene mutation in the past. -- Check D-dimer, consider CTA of the chest to rule out PE. -- Heparin drip. -- Eliquis 5 mg b.i.d.. History of Present Illness Reason for Consultation: -- SOB, Burning Chest Pain. -- CAD s/p CABG x 3 Vessels 2006. Requesting Physician: Josh Cooley Attending Physician: Tha Oseguera MD History of Present Illness Mr. Mijares is a 70 year old male with a history of Hypertension, Hypercholesterolemia, CAD s/p Inferior TX s/p RCA Stents x 2 in 1998, CABG x 3 Vessels 2006 (SVG to LAD, SVG to LCx, SVG to RCA), DVT, Pulmonary Embolism, Hiatal Hernia, GERD, BPH, and an Iron Deficiency Anemia with current Hgb of 8.6/g/dl -- who presented to [facility] on 12/08/20 complaining of progressive SOB/GARCIA x several months - which he feels is related to his anemia and a burning chest discomfort. He describes getting short of breath when he walks to the mailbox and if he cl imbs a flight of stairs -- it plays him out. More recently, he has been experiencing a burning sensation in his lower chest mostly with exertion that is associated with dyspnea and "hot flashes". He became more concerned because on the morning of 12/08/20 -- he had 3 brief episodes over the course of an hour of burning in his lower chest that occurred at rest, uncertain how long each episode lasted, but each gradually dissipated. He did not try any nitroglycerin for it. This burning chest discomfort has not recurred since being admitted. Thus far his Troponin I is undetectable at < 0.015 ng/ml x 3. EKG changes are consistent with LVH. Patient also describes "a knot in the middle of my back" that occurred during this hospitalization with associated dyspnea and sweating -- similar to what he experienced with his pulmonary embolus in the past. He states that his left leg was swollen recently but "it's gotten much better" over the past couple of days. Lower Extremity Ultrasound showed no evidence of a DVT. He is being treated for an iron deficiency anemia and is scheduled for EGD and Colonoscopy on 12/17/20. He does admit to intermittent bright red blood with bowel movements. Allergies Allergy/AdvReac Type Severity Reaction Status Date / Time Penicillins Allergy Unknown MD CASTLE Verified 12/08/20 10:39 WANTS MEFOXIN 12/20/04 Home Medications Medication Instructions Recorded Confirmed Type aspirin 81 mg PO QAM 08/25/19 12/08/20 History simvastatin 80 mg tablet 80 mg PO HS #90 tab 04/04/20 12/08/20 Rx apixaban 5 mg tablet 5 mg PO Q12H #180 tab 10/07/20 12/08/20 Rx lisinopril 30 mg tablet 30 mg PO DAILY #90 tab 11/15/20 12/08/20 Rx sertraline 25 mg tablet 25 mg PO DAILY #90 tab 11/15/20 12/08/20 Rx tramadol 50 mg tablet 100 mg PO TID #180 tab 12/03/20 12/08/20 Rx sodium sulf 1.479 gram-potas See Rx Instructions PO .COMPLEX 12/04/20 Rx chloride 0.188 gram-magnesium sulf #24 tab tablet alfuzosin [Uroxatral] 10 mg PO HS 12/08/20 12/08/20 History dutasteride [Avodart] 0.5 mg PO HS 12/08/20 12/08/20 History metoprolol succinate [Toprol XL] 50 mg PO QAM 12/08/20 12/08/20 History omega 4-[id number]-[id number]-fish oil [Fish Oil] 1 cap PO BID 12/08/20 12/08/20 History omeprazole 20 mg PO QAM 12/08/20 12/08/20 History polysaccharide iron complex 150 mg PO HS 12/08/20 12/08/20 History [Ferrex 150] Patient History Medical History Arthritis BPH with obstruction/lower urinary tract symptoms BPH without obstruction/lower urinary tract symptoms CAD (coronary artery disease) CAD, multiple vessel Compression fracture of thoracic vertebrae, non-traumatic DVT (deep venous thrombosis) (~08/2016) Dyslipidemia Elevated PSA Gallbladder calculus with acute cholecystitis GERD (gastroesophageal reflux disease) High blood pressure History of TX (myocardial infarction) (~1998) History of venous thromboembolism Hypercholesterolemia Hyperlipidemia Hyperlipidemia LDL goal <70 Hypertension Lateral epicondylitis Pulmonary emboli Pulmonary embolism (~03/13/19) Thrombocytopenia Vertigo Surgical History History of appendectomy History of arthroscopy of knee History of colonoscopy (02/01/18) tubular adenoma, repeat in 5 years History of laparoscopic cholecystectomy S/P CABG x 3 (~2006) Family History Unknown Hypertension Heart disease Prostate cancer Nephrolithiasis Colon cancer Grandfather Colon cancer Grandmother CHF (congestive heart failure) Leukemia Colon cancer Daughter Deep vein thrombosis Thyroid cancer Father Cardiomyopathy Myocardial infarction Sister Vertigo Uncle Deep vein thrombosis Denies family history of Breast cancer Lung cancer Social History Smoking Status: Former smoker Second Hand Exposure: No; Do You Dip or Chew Tobacco: No; Tobacco Cessation Education Requested by Patient: No Hx Alcohol Use: No Hx Substance Use: No Preferred Language: Czech Communication Ability: Effective [employer] Required: No Beliefs That Will Affect Care: None marital status: Current Living Situation: Spouse current occupational status: retired Other Information That Helps Us Care for You: No Feels Safe at Home: Yes Safety Concerns: Feels Safe At This Time Childhood Exposure to Second-Hand Smoke: No Dental Care, Regularly: Yes Physical Activity Frequency: Does not Exercise Seatbelt Use: always Sunscreen Use: Yes Assistive Devices: None Review of Systems Review of Systems: All systems reviewed & are unremarkable except as noted in Subjective Physical Exam Physical Exam: GENERAL: Patient in no acute distress. HEENT: Head is atraumatic, normocephalic. EOM's intact, conjunctiva are pale. Facies symmetric. No perioral cyanosis. NECK: No JVD. JVP is at the level of the clavicle sitting upright. Carotid upstrokes are + 2 bilaterally. No bruits are noted. CHEST/LUNGS: Clear to auscultation throughout all lung weiner. No wheezes, rales, or crackles. CVS: S1 and S2 are regular at 78 bpm. No obvious murmurs, gallops, or rubs. PMI is nonpalpable. No lifts, heaves, or thrills. No abdominal aortic or renal bruits. ABDOMINAL EXAM: Bowel sounds are present. No masses, organomegaly, or tenderness. EXTREMITIES: No clubbing or cyanosis. No edema. Intact radial pulses bilaterally. NEUROLOGIC EXAM: Patient is awake, alert, and oriented. Pleasant and cooperative. Answers questions appropriately. Speech is clear. Normal movement in all 4 extremities. Gait pattern was not assessed. Results & Data ([facility]) Vital Signs (Past 12 Hours) Vital Signs Temp Pulse Pulse Resp BP Pulse Ox Pulse Ox 12/09/20 08:00 68 97 12/09/20 07:11 36.7 C 73 16 159/62 H 99 12/09/20 03:41 36.7 C 70 16 114/60 97 12/09/20 00:15 70 12/08/20 23:26 36.7 C 61 20 130/68 98 Laboratory Results Laboratory Results - last 24 hr 12/08/20 12/08/20 12/08/20 10:10 10:10 12:36 WBC 5.53 RBC 4.04 L Hgb 9.3 L Hct 29.9 L MCV 74.0 L MCH 23.0 L MCHC 31.1 L RDW Std Deviation 39.7 RDW Coeff of Caitlin 14.7 H Plt Count 159 MPV 9.6 Immature Gran % (Auto) 0.2 Neut % (Auto) 71.4 Lymph % (Auto) 18.3 [place] % (Auto) 8.3 Eos % (Auto) 1.6 Baso % (Auto) 0.2 Neut # (Auto) 3.95 Lymph # (Auto) 1.01 L [place] # (Auto) 0.46 Eos # (Auto) 0.09 Baso # (Auto) 0.01 Immature Gran # (Auto) 0.01 Ovalocytes 1+ PT INR APTT PTT Ratio Sodium 136 Potassium 4.1 Chloride 109 H Carbon Dioxide 23 Anion Gap 4.0 BUN 19 H Creatinine 1.03 Est Cr Clr Drug Dosing 85.1 Est GFR ( Amer) 84.9 Est GFR (Non-Af Amer) 73.3 BUN/Creatinine Ratio 18.7 Glucose 128 H Estimat Average Glucose Hemoglobin A1c Calcium 8.7 Iron Transferrin Transferrin % Sat Ferritin Troponin I < 0.015 Triglycerides Cholesterol LDL Cholesterol, Calc VLDL Cholesterol, Calc HDL Cholesterol Cholesterol/HDL Ratio Lipase 242 COVID[facility], RNA, NAAT 12/08/20 12/08/20 12/08/20 12:36 18:17 18:17 WBC RBC Hgb Hct MCV MCH MCHC RDW Std Deviation RDW Coeff of Caitlin Plt Count MPV Immature Gran % (Auto) Neut % (Auto) Lymph % (Auto) [place] % (Auto) Eos % (Auto) Baso % (Auto) Neut # (Auto) Lymph # (Auto) [place] # (Auto) Eos # (Auto) Baso # (Auto) Immature Gran # (Auto) Ovalocytes PT 9.9 INR 1.0 APTT 22.6 PTT Ratio 0.9 Sodium Potassium Chloride Carbon Dioxide Anion Gap BUN Creatinine Est Cr Clr Drug Dosing Est GFR ( Amer) Est GFR (Non-Af Amer) BUN/Creatinine Ratio Glucose Estimat Average Glucose Hemoglobin A1c Calcium Iron Transferrin Transferrin % Sat Ferritin Troponin I < 0.015 Triglycerides Cholesterol LDL Cholesterol, Calc VLDL Cholesterol, Calc HDL Cholesterol Cholesterol/HDL Ratio Lipase COVID-19 Eval Order SARS-CoV-2, RNA, NAAT NEGATIVE 12/09/20 12/09/20 12/09/20 04:32 04:32 04:32 WBC 8.09 RBC 3.76 L Hgb 8.6 L Hct 27.8 L MCV 73.9 L MCH 22.9 L MCHC 30.9 L RDW Std Deviation 39.5 RDW Coeff of Caitlin 14.6 H Plt Count 147 MPV 9.4 Immature Gran % (Auto) Neut % (Auto) Lymph % (Auto) [place] % (Auto) Eos % (Auto) Baso % (Auto) Neut # (Auto) Lymph # (Auto) [place] # (Auto) Eos # (Auto) Baso # (Auto) Immature Gran # (Auto) Ovalocytes PT INR APTT 36.0 H PTT Ratio 1.4 Sodium 140 Potassium 4.0 Chloride 109 H Carbon Dioxide 25 Anion Gap 6.0 BUN 19 H Creatinine 1.02 Est Cr Clr Drug Dosing 86.0 Est GFR ( Amer) 85.9 Est GFR (Non-Af Amer) 74.1 BUN/Creatinine Ratio 18.7 Glucose 95 Estimat Average Glucose Hemoglobin A1c Calcium 8.1 L Iron 182 H Transferrin 301 Transferrin % Sat 43 Ferritin 7.4 L Troponin I < 0.015 Triglycerides 153 H Cholesterol 124 LDL Cholesterol, Calc 65 VLDL Cholesterol, Calc 31 HDL Cholesterol 28 Cholesterol/HDL Ratio 4 Lipase COVID-19 Eval Order SARS-CoV-2, RNA, NAAT 12/09/20 04:32 WBC RBC Hgb Hct MCV MCH MCHC RDW Std Deviation RDW Coeff of Caitlin Plt Count MPV Immature Gran % (Auto) Neut % (Auto) Lymph % (Auto) [place] % (Auto) Eos % (Auto) Baso % (Auto) Neut # (Auto) Lymph # (Auto) [place] # (Auto) Eos # (Auto) Baso # (Auto) Immature Gran # (Auto) Ovalocytes PT INR APTT PTT Ratio Sodium Potassium Chloride Carbon Dioxide Anion Gap BUN Creatinine Est Cr Clr Drug Dosing Est GFR ( Amer) Est GFR (Non-Af Amer) BUN/Creatinine Ratio Glucose Estimat Average Glucose 128 Hemoglobin A1c 6.1 H Calcium Iron Transferrin Transferrin % Sat Ferritin Troponin I Triglycerides Cholesterol LDL Cholesterol, Calc VLDL Cholesterol, Calc HDL Cholesterol Cholesterol/HDL Ratio Lipase COVID-19 Eval Order SARS-CoV-2, RNA, NAAT Diagnostic Findings LLE Venous Ultrasound 12/08/20: -- No evidence of left lower extremity DVT. CXR 12/08/20: The heart is mildly enlarged. There are postsurgical changes of midline sternotomy. There is aortic tortuosity/ectasia. There is no failure. There is no focal pulmonary consolidation. No pleural effusions are visualized. Degenerative changes are present within the dorsal spine. There is a fractured sternal suture. IMPRESSION: No active disease in the chest. Medications Administered Alfuzosin HCl (Alfuzosin Hcl 10 Mg Tab) 10 mg PO HS [facility] Stop: 01/07/21 20:59 Last Admin: 12/08/20 20:15 Dose: 10 mg Documented by: [id number] Aspirin (Aspirin 81 Mg Ectab) 81 mg PO QAM [facility] Stop: 01/08/21 08:59 Last Admin: 12/09/20 07:27 Dose: 81 mg Documented by: [id number] Finasteride (Finasteride 5 Mg Tab) 5 mg PO HS [facility] Stop: 01/07/21 20:59 Last Admin: 12/08/20 20:15 Dose: 5 mg Documented by: [id number] Fish Oil ([place]-3 (Purified Fish Oil) 1 Gm Cap) 1 gm PO BID [facility] Stop: 01/07/21 20:59 Last Admin: 12/09/20 07:28 Dose: 1 gm Documented by: [id number] Admin: 12/08/20 20:16 Dose: 1 gm Documented by: [id number] Heparin Sodium/Dextrose (Heparin Sodium/Dextrose) 25,000 units in 500 mls @ 24 mls/hr IV .[id number] JAYDEN; Protocol Stop: 01/07/21 21:29 Last Titration: 12/09/20 07:10 Dose: 1,200 units/hr, 24 mls/hr Documented by: [id number] Cosigned by: [id number] Admin: 12/09/20 05:11 Dose: 1,200 units/hr, 24 mls/hr Documented by: [id number] Cosigned by: [id number] Titration: 12/09/20 05:11 Dose: 1,000 units/hr, 20 mls/hr Documented by: [id number] Cosigned by: [id number] Admin: 12/08/20 22:29 Dose: 1,000 units/hr, 20 mls/hr Documented by: [id number] Cosigned by: [id number] Lisinopril (Lisinopril 10 Mg Tab) 30 mg PO DAILY [facility] Stop: 01/08/21 08:59 Last Admin: 12/09/20 07:27 Dose: 30 mg Documented by: [id number] Metoprolol Succinate (Metoprolol Succ 50mg Ext Rel Tab) 50 mg PO QAM [facility] Stop: 01/08/21 08:59 Last Admin: 12/09/20 07:28 Dose: 50 mg Documented by: [id number] Nitroglycerin (Nitroglycerin 2% Ointment 30gm Tube) 1 inch EXT Q6H [facility]AY[facility] Stop: 01/07/21 13:44 Last Admin: 12/09/20 07:42 Dose: 1 inch Documented by: [id number] Admin: 12/09/20 02:09 Dose: 1 inch Documented by: [id number] Admin: 12/08/20 19:40 Dose: 1 inch Documented by: [id number] Admin: 12/08/20 14:27 Dose: 1 inch Documented by: [id number] Pantoprazole Sodium (Pantoprazole 40 Mg Tab) 40 mg PO QAM [facility] Stop: 01/08/21 08:59 Last Admin: 12/09/20 07:26 Dose: 40 mg Documented by: [id number] Polysaccharide Iron Complex (Iron Polysaccharide Complex 150 Mg Capsule) 150 mg PO HS [facility] Stop: 01/07/21 20:59 Last Admin: 12/08/20 20:15 Dose: 150 mg Documented by: [id number] Sertraline HCl (Sertraline Hcl 50 Mg Tablet) 25 mg PO DAILY [facility] Stop: 01/08/21 08:59 Last Admin: 12/09/20 07:20 Dose: 25 mg Documented by: [id number] Simvastatin (Simvastatin 80 Mg Tab) 80 mg PO HS [facility] Stop: 01/07/21 20:59 Last Admin: 12/08/20 20:15 Dose: 80 mg Documented by: [id number] Tramadol HCl (Tramadol Hcl 50 Mg Tablet) 100 mg PO TID [facility] Stop: 01/08/21 08:59 Last Admin: 12/09/20 08:42 Dose: 100 mg Documented by: [id number] Discontinued Medications Aspirin (Aspirin Chew 324 Mg) 324 mg PO NOW STA Stop: 12/08/20 10:14 Last Admin: 12/08/20 10:43 Dose: 324 mg Documented by: [id number] Heparin Sodium/Dextrose (Heparin Iv Low Dose With Bolus) 1 ea IV NOW STA; Protocol Stop: 12/08/20 21:18 Last Admin: 12/08/20 22:30 Dose: 1 ea Documented by: [id number] Heparin Sodium (Porcine) 4,000 (units/ Syringe) 4 mls @ 10 mls/min IV NOW ONE Stop: 12/08/20 22:16 Last Admin: 12/08/20 22:28 Dose: 10 mls/min Documented by: [id number] Cosigned by: [id number] Heparin Sodium (Porcine) 4,000 (units/ Syringe) 4 mls @ 10 mls/min IV ONE ONE Stop: 12/09/20 05:07 Last Admin: 12/09/20 05:45 Dose: 10 mls/min Documented by: [id number] Cosigned by: [id number] Tramadol HCl (Tramadol Hcl 50 Mg Tablet) 100 mg PO NOW STA Stop: 12/08/20 18:23 Last Admin: 12/08/20 18:45 Dose: 100 mg Documented by: [id number] PG Care Time/CCT Total # of Minutes Spent Total Time Spent with Patient: Total time spent is greater than 50% in coordination of care (as documented) at patient's floor/unit and/or counseling patient:50 Coding Level of Care Code 30361 Initial Inpt Care Lvl 3 Diagnoses Burning chest pain R07.89 CAD, multiple vessel I25.10 Hypertension I10 Hyperlipidemia LDL goal <70 E78.5 Pulmonary embolism I26.99
[2020-12-09 10:45] LABS: D Dimer 340 ug/L FEU (0-500)
[2020-12-09] MEDS ORDERED: IRON SUCROSE 300 MG in SODIUM CHLORIDE 0.9% 250 ML IV ONE (11:30)
[2020-12-09 12:21] LABS: Partial Thromboplastin Ratio 1.7; Partial Thromboplastin Time 43.5 Seconds (21.0-31.0)
--- NOTE | 2020-12-09 12:36 | XCELERA ---
[id number] [id number]
[2020-12-09] MEDS ORDERED: OPTIRAY 320 125ml IV ONE (16:32)
--- NOTE | 2020-12-09 16:47 | CT Scan Report ---
CT angio chest PE protocol CT DOSE: 879.34 mGy.cm HISTORY: 70 years-old Male with PE. Acute shortness of breath TECHNIQUE: Multiple CTA images of the chest were obtained after the intravenous administration of 119 ml Optiray 320. Coronal and sagittal MIPS were obtained from the axial data set and were submitted for review. All measurements were obtained according to NASCET criteria. A dose lowering technique w as utilized adhering to the principles of ALARA. COMPARISON: CTA chest 03/13/2019 FINDINGS: CTA: Mild cardiomegaly with prior median sternotomy and CABG. There is no pericardial effusion. Extensive [place] coronary artery calcifications. No thoracic aortic aneurysm or dissection. Patency of the imag ed great vessels. Mild descending thoracic aortic tortuosity. The pulmonary artery is opacified to le jae of the subsegmental branches and demonstrates no filling defects to suggest thromboembolic diseas e. CT CHEST: Unremarkable thyroid. No adenopathy. There is no pneumothorax, pleural effusion, airspace consolidati on or overt pulmonary edema. No airspace consolidation typical for pneumonia. There are a few tiny sc attered calcified granulomata noted bilaterally. There are no suspicious pulmonary nodules. Minimal t jluis secretions. There is no pneumoperitoneum. Cholecystectomy. Hepatic steatosis. Colonic diverticulosis. Unremarkabl e soft tissues. There is no acute fracture or suspicious bone lesion. IMPRESSION: 1. No acute intrathoracic abnormality, specifically there are no pulmonary emboli. 2. Cardiomegaly with prior median sternotomy and CABG. 3. Hepatic steatosis. 4. Cholecystectomy ACT 112: Negative or not required by law. The above report was generated using voice recognition software. It may contain grammatical, syntax o r spelling errors. Electronically signed by: Yobani Mederos M.D. 12/09/2020 4:46 PM
--- NOTE | 2020-12-09 17:07 | Discharge Summary ---
Date of Service December 09, 2020 Admission HPI Per Admitting Provider Popeye Mijares is a 70 year old male with known CAD and prior CABGx3 who presents to the ER with chest pain. Chest pain has been progressing in frequency and intensity over the last month. Previously only on exertion up until this morning at 5am. He describes is a as a burning substernal pain, usually relieved with rest. This morning he had three episodes at rest over the course of one hour therefore decided to come to the ER ER. Associated diaphoresis and shortness of breath. He is currently chest pain free. He denies any orthopnea, PND, palpitations, presyncope or syncope. In addition he has been short of breath for many months but today much worse, can't get up 2 steps. 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 He took his usual apixaban this morning. His daughter notes a recent diagnosis of iron deficient anemia. He was started on iron tablets at the beginning of October. He reports bright red blood has been noted in his stool. Prior colonoscopy 2 years ago with polyp removed at that time. He is awaiting outpatient workup with EGD and colonoscopy planned for December 17. In the ER initial troponin negative, EKG unremarkable for acute ischemic changes . He was referred to medicine for admission and ongoing management of chest pain rule out ACS. Admission Exam Per Admitting Provider Constitutional: well developed and well nourished; no acute distress Eyes: + anicteric sclerae; normal pupil size ENMT: external ear and nose normal, oropharynx normal Neck: trachea midline Respiratory: normal respiratory effort, lungs clear to auscultation Cardiovascular: Rate/Rhythm: regular rate and regular rhythm Heart Sounds: no murmur Vessels: no JVD Extremities: normal capillary refill and + pedal edema (trace b/l ankles); no calf tenderness Gastrointestinal (Abdomen): normal bowel sounds, soft, nontender, no hepatosplenomegaly Musculoskeletal: no cyanosis or clubbing, extremities motor strength 5/5 Skin: no rashes, warm and dry Neurologic: moves all extremities and awake; not confused Psychiatric: A+Ox3, euthymic affect Principal Diagnosis Chest Pain, Anemia Discharge Exam Constitutional well developed and well nourished; no acute distress Eyes + anicteric sclerae; normal pupil size ENMT external ear and nose normal, oropharynx normal Neck trachea midline Respiratory normal respiratory effort, lungs clear to auscultation Cardiovascular Rate/Rhythm: regular rate and regular rhythm Heart Sounds: no murmur Vessels: no JVD Extremities: normal capillary refill and + pedal edema (trace b/l ankles); no calf tenderness Gastrointestinal (Abdomen) normal bowel sounds, soft, nontender, no hepatosplenomegaly Musculoskeletal no cyanosis or clubbing, extremities motor strength 5/5 Skin no rashes, warm and dry Neurologic moves all extremities and awake; not confused Psychiatric A+Ox3, euthymic affect Genitourinary no sweeney Lymphatic no cervical or axillary lymphadenopathy Discharge Data Allergies Allergy/AdvReac Type Severity Reaction Status Date / Time Penicillins Allergy Unknown Hives Verified 12/17/20 09:06 Consultations 12/08/20 12:10 ED Decision to Admit Stat 12/08/20 18:10 Consult Cardiology Routine Ordered Studies 12/08/20 13:40 US venous doppler LE LT Stat 12/09/20 12:52 CT angio chest PE protocol Urgent ECHO Hospital Course (1) Acute coronary syndrome: Unstable angina vs. NSTEMI (pending serial troponins overnight). Convincing history in patient with known CAD and prior CABG. Likely somewhat exacerbated by current microscopic (iron def.) anemia but suspect worsening CAD in addition. Ideally would try to medically optimize patient although he is already significantly optimized that catheterization may be warranted but will defer decision to cardiology in AM. Currently will use nitroglycerin paste to avoid any further chest pain until seen by cardiology in AM Switched apixaban for low dose heparin gtt while inpatient for possible cardiac catheterization and continued --> placed back on Eliquis at discharge Troponin negative x 3 Cardiology consulted -- believes related to his anemia and would like the EGD/c- scope worked up and did not pursue cardiac catheterization while inpatient. . Discussed with Alexys Patel and patient underwent eval for PE (no prior hypercoag work-up on Eliquis for hx PE but remains on for hx paroxysmal afib) -- patient to have follow up in office in next week to establish care/possible cath for eval of coronaries ECHO -- LV systolic function normal, mild concentric LVH, flattened septum c/w RV pressure overload. Right ventricle normal in size/funciton. Left atrium mildly dilated. Mild MR. Mild aortic root dilatation. Recommended ddimer -- NEGATIVE However, patient with supposed negative Ddimer last time with his CTEPH and felt given elevated RV pressures that we should obtain CT for PE for further evaluation CT Angio NEGATIVE for PE Given Venofer IV x 1 -- to continue oral iron replacement at discharge. Recommend patient have repeat labs in next week with PCP to ensure stability of h/h vs need for PRBC transfusion vs IV Venofer if PO alone unsuccessful. Patient has only take for about a month so far-- iron elevated but ferritin/stores still low Repeat CBC performed and reviewed -- improved to 9.3/30.3 (2) CAD, multiple vessel: As above (3) Anemia: Microscopic. Recently diagnosed and on iron supplementation for 1.5 months. B12/folate wnl. Known FOB +ve and EGD and colonoscopy planned as outpatient on December 17 Appears to be getting worse. Iron elevated (from recent supplementation) but ferritin still low Given dose of IV Venofer while inpatient and to have f/u with PCP for possible need for further Venofer To have f/u with GI in next 1-2 weeks for scope --> if bleeding increases may need more urgent evaluation but held off while inpatient as symptoms stabilized and patient stable for d/c and to have outpatient follow up as previously scheduled (4) Hypertension: Continued his usual home medications with metoprolol succinate and lisinopril Added nitro paste 1inch 2% as above. BP elevated 160/83 but had some sciatica pain (5) Hyperlipidemia LDL goal <70: Lipid panel in AM -- elevated triglycerides but only slightly Continued simvastatin 80mg PO HS (6) GERD (gastroesophageal reflux disease): Switched omeprazole for pantoprazole as per hospital formulary but resumed home omeprazole at [facility] (7) DVT prophylaxis: Heparin gtt while inpatient in place of Eliquis given possibility for cath on admission No cath planned -- switched back to Eliquis Discharged home with . Total Time Total Time Spent Total Time Spent (In Minutes): 70 Discharge Plan Discharge Items Patient Disposition: Home - Self-Care Reason For Visit: CHEST PAIN RULE OUT MA Discharge Diagnosis: Chest Pain, Anemia Goals: You have been hospitalized for an acute medical problem. During your stay at [facility], we have made an effort to correct the problem that brought you to the hospital while keeping you as comfortable as possible. Medications were used to bring your condition under control and your discharge instructions will include directions for any medications you should take after leaving the hospital. Please make sure you see your Primary Care Provider as part of your follow up plan. Activity: Resume your previous activity Non-emergency contact: Primary Care Provider, [employer] Call non-emergency contact if: you have any medication questions Follow-up/Referrals: Tha Oseguera MD [Physician] - 12/27/20 1:00 pm (1 week) Joaquín Dao III, MD [Primary Care Provider] - 12/13/20 11:00 am Diet: Carb Consistent or DM2 and Heart Healthy Addtl Attending Provider Instructions: You have been hospitalized for chest pain. Cardiac enzymes were drawn and have been negative on THREE separate lab draws. ECHOcardiogram (ultrasound of your heart) was performed and showed a little but of volume overload, but otherwise no grave abnormalities to explain your symptoms. A ddimer was drawn to rule out a pulmonary embolism.This was negative, however given a positive history with a normal lab value, a CT of your chest wa performed which was NEGATIVE for a pulmonary embolism. You were found to be anemia with a low hemoglobin, and as discussed, you should have follow up colonoscopy and EGD as soon as possible to evaluate for a mass that could be contributing to a slow bleed. Iron studies were obtained and your iron has improved, but your stores are not yet adequate. You have been given a dose of IV Venofer (iron) while in the hospital and should continue your supplementation daily. You should follow up with your PCP about possibly scheduling further IV transfusions if needed. Please follow up with GI as previously discussed. Please follow up with your primary care provider in the next 1-2 weeks to monitor your progress. Your A1c was slightly elevated but still in the "pre-diabetes" range and should continue to be monitored along with your lipid panel, as your triglycerides were slightly above normal range. You should also have follow up with Cardiology in the next 1 week to get established and further discuss a possible cardiac catheterization to evaluate your coronary arteries. It is suspected this discomfort is from the anemia/low blood counts, however your symptoms certainly raise concerns for unstable angina. If you do not hear from them please call their office at [phone]. Please return to the emergency department with any worsening chest pain, shortness of breath, or for any other symptoms that are concerning for you. It has been a pleasure being a part of the medical team providing for you while you have been in the hospital. Take care! Pending Studies at Discharge: No Stand-Alone Forms: My [facility] Medications and DC Order Prescriptions: Continued simvastatin [Zocor] 80 mg tablet 80 mg PO HS Qty: 90 RF: 3 aspirin 81 mg Tablet,Delayed Release (Dr/Ec) 81 mg PO QAM RF: 0 omega [id number] oil [Fish Oil] 1,200 (144-216) mg Capsule 1 cap PO BID RF: 0 metoprolol succinate [Toprol XL] 50 mg tablet extended release 24 hr 50 mg PO QAM RF: 0 polysaccharide iron complex [Ferrex 150] 150 mg iron capsule 150 mg PO HS RF: 0 omeprazole 20 mg capsule,delayed release(DR/EC) 20 mg PO QAM RF: 0 dutasteride [Avodart] 0.5 mg capsule 0.5 mg PO HS RF: 0 No Action alfuzosin [Uroxatral] 10 mg tablet extended release 24 hr 10 mg PO HS Qty: 30 RF: 3 tramadol [Ultram] 50 mg tablet 100 mg PO UD PRN (Reason: Pain) RF: 0 lisinopril 30 mg tablet 30 mg PO QPM RF: 0 sertraline 25 mg tablet 25 mg PO QAM RF: 0 Eliquis 5 mg tablet 5 mg PO BID RF: 0 Discharge Orders: Discharge Order (Routine); Ordered 12/09/20 Ordered By: Arlene Wilson/Other Patient Handouts: 5 Steps for Eating Healthier, A1C Admission Data Admit Date/Time: 12/08/20 13:51 Attending Provider: Josh Cooley Admit Provider: Chuckie Mcgregor Primary Care Provider: Joaquín Dao III Other Providers: Tha Oseguera Other Interventions: Discharge Summary Assessment (RN) Last Done: 12/09/20 17:32 Supervising Physician Co-Signing Physician Notes During face to face encounter, a history of hospitalization and brief physical examination was obtained. I discussed discharge pland and aswered patient's question. I discussed discharge with NATTY Chaudhry. Patient will be discharged as workup for chest pain and Pulmonary emboli were negative. appreciate cardio input. Coding Level of Care Code 00667 OBS Care - Discharge Diagnoses Acute coronary syndrome I24.9 CAD, multiple vessel I25.10 Anemia D50.0 Anemia type: iron deficiency Iron deficiency anemia type: chronic blood loss Hypertension I10 Hyperlipidemia LDL goal <70 E78.5 GERD (gastroesophageal reflux disease) K21.9 DVT prophylaxis Z29.9
== END 2020-12-09 18:22 | disposition home or self-care (01) ==
LOC: 2S 09:50 → ED 09:50 → SUATTDRO 13:51 → 2S 14:23